=== PATIENT | female | born 1955 | race African-American/Black ===

== ENCOUNTER 2017-01-14 14:31 | Emergency (ER) | payer OTHER ==
[2017-01-14 14:49] VITALS: BP 0/0; PULSE 71; TEMP 99; BMI 32.9
--- NOTE | 2017-01-14 15:18 | PDOC ---
History of Present Illness - General Chief Complaint: Injury Stated Complaint: LACERATION Time Seen by Provider: 01/14/17 14:53 Past History - Past Medical History Allergies/Adverse Reactions: Allergies Allergy/AdvReac Type Severity Reaction Status Date / Time iodine Allergy Verified 01/14/17 14:39 Home Medications: Ambulatory Orders Acetaminophen W/ Codeine #3 [Tylenol # 3 -] 1 tab PO HS #7 tablet MDD 1 Atorvastatin Ca [Lipitor] 10 mg PO HS 01/14/17 Clindamycin [Cleocin -] 300 mg PO TID #21 capsule 01/14/17 Clopidogrel Bisulfate [Plavix -] 75 mg PO DAILY 01/14/17 Gabapentin 400 mg PO ASDIR 01/14/17 Insulin (Novolog) [Novolog Flexpen -] 100 units SQ ASDIR 01/14/17 Cardiac Disorders: Yes (PACEMAKER) COPD: Yes Diabetes: Yes HTN: Yes Hypercholesterolemia: Yes Other medical history: GLAUCOMA - Surgical History Cardiac Surgery: Yes (MITRAL VALVE REPLACEMET W/ STENT) - Immunization History Immunization Up to Date: Yes - Psycho/Social/Smoking Cessation Hx Suicidal Ideation: No Smoking History: Current every day smoker Number of Cigarettes Smoked Daily: 4 Information on smoking cessation initiated: No Hx Alcohol Use: No Drug/Substance Use Hx: No Substance Use Type: None *Physical Exam - Vital Signs Last Vital Signs Temp Pulse Resp BP Pulse Ox 99.0 F 71 16 0/0 100 01/14/17 14:41 01/14/17 14:41 01/14/17 14:41 01/14/17 14:41 01/14/17 14:41 *DC/Admit/Observation/Transfer Diagnosis at time of Disposition: Foot ulcer Qualifiers: Laterality: right Non-pressure ulcer stage: unspecified non-pressure ulcer stage Qualified Code(s): L97.519 - Non-pressure chronic ulcer of other part of right foot with unspecified severity Laceration of toe Qualifiers: Encounter type: initial encounter Toe: great toe Damage to nail status: without damage Foreign body presence: without foreign body Laterality: right Qualified Code(s): S91.111A - Laceration without foreign body of right great toe without damage to nail, initial encounter - Discharge Dispostion Disposition: HOME Condition at time of disposition: Good Admit: No - Referrals Referrals: Lucila Welch MD [Staff Physician] - Toshia Dickinson [Staff Physician] - Modesto Bell MD [Staff Physician] - Alfonso Dillon MD [Staff Physician] - - Patient Instructions Printed Discharge Instructions: DI for Diabetic Foot Ulcer Additional Instructions: You have a wound to the bottom of your foot. Keep the area elevated and keep pressure off the area when possible. Do not walk around the house barefoot. Use muperocin on the area twice a day to help with healing. When possible, keep the area uncovered to let the air get at the wound. When walking, keep the area covered. Try to create a bulky dressing to put over the wound to lessen the pressure to the area. You may take Tylenol with codeine as needed for pain. Do not drive after taking this medication as it may make you sleepy. You were also prescribed clindamycin. Take this medication with food. Take the entire prescription even if you feel better. Follow up with Dr. Ramirez (podiatry) within a week. You were also given referrals for a primary care doctor. Call to see who take your insurance. Return to the ED if you have worsening pain, signs of infection including foul smelling drainage from the area, fevers, chills, lethargy or any changes in your symptoms.
[2017-01-14] MEDS ORDERED: DIPHTH,PERTUSS(ACELL),TET 0.5 ML DISP.SYRIN IM ONE (15:59)
--- NOTE | 2017-01-15 16:18 | PDOC ---
Patient Follow-up (Call Back) - Post ED Follow - Up Chief Complaint: Pain Condition at time of discharge: Good Disposition at time of original discharge: HOME Reason for Call Back: Complaint/Condition F/U - Disposition Additional Instructions/Notes: Contact by patient, states [facility] did not fill her prescriptions for Clindamycin or Tylenol #3 because they are not contracted with her insurance. Verified with [facility] that prescriptions were not filled, then deleted them. Re-sent prescriptions as written by original ordering provider to [facility].
== END 2017-01-14 16:19 | disposition home or self-care (01) ==
LOC: JERFT 14:31
PROC: 3E0234Z Introduction of Serum, Toxoid and Vaccine into Muscle, Percutaneous Approach (ICD-10-PCS; principal; 2017-01-14)
DX: S91.111A Laceration without foreign body of right great toe without damage to nail, initial encounter (principal); L97.519 Non-pressure chronic ulcer of other part of right foot with unspecified severity; X58.XXXA Exposure to other specified factors, initial encounter; Y93.89 Activity, other specified; Y92.89 Other specified places as the place of occurrence of the external cause; Y99.8 Other external cause status; I10 Essential (primary) hypertension; E11.9 Type 2 diabetes mellitus without complications; J44.9 Chronic obstructive pulmonary disease, unspecified; H40.9 Unspecified glaucoma; Z95.2 Presence of prosthetic heart valve; Z95.0 Presence of cardiac pacemaker; F17.210 Nicotine dependence, cigarettes, uncomplicated
CPT/HCPCS: 87070; 87077; 87186; 87205; 90715; 99281-25

== ENCOUNTER 2017-08-17 12:19 | Observation (INO) | payer OTHER ==
[2017-08-17 12:30] VITALS: BMI 34.3
--- NOTE | 2017-08-17 12:43 | PDOC ---
History of Present Illness - General Chief Complaint: Chest Pain Stated Complaint: LIGHTHEADED, LOW BP (PCP SENT) Time Seen by Provider: 08/17/17 12:42 - History of Present Illness Initial Comments: 08/17/17 12:43 Ms. Ray is a 61 yo woman w/ pmh of IDDM, COPD, HTN, HLD, glaucoma, mitral valve replacement, stents, s/p pacemaker who presents per PCP's instruction after she was found to be lightheaded with low blood pressure in office today. Ms. Ray reports a 2 week history of diarrhea she describes as loose stool ( no blood) and that "whatever goes in goes out." She also endorses a 1 week history of cough productive of yellow/green sputum and that for the last 3-4 days she has had midline chest pain and bilateral lower abdominal pain when coughing. She also reports recent foaming of her urine. The patient headache and dizziness. Denies fever, chills, nausea, vomit, and constipation. Denies dysuria, frequency, urgency and hematuria. Allergies: Iodine 08/17/17 13:00 Past History - Past Medical History Allergies/Adverse Reactions: Allergies Allergy/AdvReac Type Severity Reaction Status Date / Time iodine Allergy Verified 08/17/17 12:31 Home Medications: Ambulatory Orders Atorvastatin Ca [Lipitor] 10 mg PO HS 01/14/17 Clopidogrel Bisulfate [Plavix -] 75 mg PO DAILY 01/14/17 Gabapentin 400 mg PO TID 01/14/17 Insulin (Novolog) [Novolog Flexpen -] 0 units SQ ASDIR 01/14/17 Insulin Detemir [Levemir Flextouch] 34 unit SQ HS 08/17/17 Cardiac Disorders: Yes (PACEMAKER) COPD: Yes Diabetes: Yes HTN: Yes Hypercholesterolemia: Yes - Surgical History Cardiac Surgery: Yes (MITRAL VALVE REPLACEMET W/ STENT) - Immunization History Immunization Up to Date: Yes - Suicide/Smoking/Psychosocial Hx Smoking History: Current every day smoker Number of Cigarettes Smoked Daily: 5 Information on smoking cessation initiated: No Hx Alcohol Use: No Drug/Substance Use Hx: No Substance Use Type: None Review of Systems - Review of Systems Comments:: 08/17/17 12:43 GENERAL/CONSTITUTIONAL: No fever or chills. No weakness. HEAD, EYES, EARS, NOSE AND THROAT: No change in vision. No ear pain or discharge. No sore throat. CARDIOVASCULAR: No chest pain or shortness of breath RESPIRATORY: No cough, wheezing, or hemoptysis. GASTROINTESTINAL: No nausea, vomiting, diarrhea or constipation. GENITOURINARY: No dysuria, frequency, or change in urination. MUSCULOSKELETAL: No joint or muscle swelling or pain. No neck or back pain. SKIN: No rash NEUROLOGIC: No headache, vertigo, loss of consciousness, or change in strength/ sensation. ENDOCRINE: No increased thirst. No abnormal weight change HEMATOLOGIC/LYMPHATIC: No anemia, easy bleeding, or history of blood clots. ALLERGIC/IMMUNOLOGIC: No hives or skin allergy. *Physical Exam - Vital Signs Last Vital Signs Temp Pulse Resp BP Pulse Ox 97.9 F 70 16 82/34 96 08/17/17 12:27 08/17/17 12:27 08/17/17 12:27 08/17/17 12:27 08/17/17 12:27 - Physical Exam Comments: 08/17/17 12:43 GENERAL: Awake, alert, and fully oriented, in no acute distress HEAD: No signs of trauma, normocephalic, atraumatic EYES: PERRLA, EOMI, sclera anicteric, conjunctiva clear ENT: Auricles normal inspection, hearing grossly normal, nares patent, oropharynx clear without exudates. Moist mucosa NECK: Normal ROM, supple, no lymphadenopathy, JVD, or masses LUNGS: No distress, speaks full sentences, clear to auscultation bilaterally HEART: Regular rate and rhythm, normal S1 and S2, no murmurs, rubs or gallops, peripheral pulses normal and equal bilaterally. ABDOMEN: Soft, nontender, normoactive bowel sounds. No guarding, no rebound. No masses EXTREMITIES: Normal inspection, Normal range of motion, no edema. No clubbing or cyanosis. NEUROLOGICAL: Cranial nerves II through XII grossly intact. Normal speech, normal gait, no focal sensorimotor deficits SKIN: Warm, Dry, normal turgor, no rashes or lesions noted. ED Treatment Course - LABORATORY CBC & Chemistry Diagram: 08/17/17 13:00 08/17/17 13:00 Medical Decision Making - Medical Decision Making 08/17/17 15:20 Ms. Ray is a 61 yo female w/ pmh as described who presents for evaluation of cough + diarrhea. 08/17/17 15:24 Patient noted to have right basilar opacity on CXR. Ceftriaxone + Azithromycin given for suspected pneumonia. Patient also noted to have MICHAEL as below. 1L NS given for treatment. Discussed with primary and will admit to Dr. Elena. 08/17/17 15:39 Laboratory Results - last 24 hr 08/17/17 08/17/17 08/17/17 13:00 13:00 13:00 WBC 10.5 H RBC 3.72 Hgb 10.9 Hct 31.8 L MCV 85.5 MCH 29.3 MCHC 34.2 RDW 13.8 Plt Count 249 MPV 8.6 Neutrophils % 66.7 Lymphocytes % 22.1 Monocytes % 6.5 Eosinophils % 3.5 Basophils % 1.2 PT with INR 12.60 H INR 1.12 PTT (Actin FS) 30.9 VBG pH 7.35 POC VBG pCO2 41.9 POC VBG pO2 53.7 H Mixed VBG HCO3 22.5 Sodium Potassium Chloride Carbon Dioxide Anion Gap BUN Creatinine Creat Clearance w eGFR Random Glucose Lactic Acid Calcium Total Bilirubin AST ALT Alkaline Phosphatase Troponin I Total Protein Albumin 08/17/17 08/17/17 08/17/17 13:00 13:00 13:00 WBC RBC Hgb Hct MCV MCH MCHC RDW Plt Count MPV Neutrophils % Lymphocytes % Monocytes % Eosinophils % Basophils % PT with INR INR PTT (Actin FS) VBG pH POC VBG pCO2 POC VBG pO2 Mixed VBG HCO3 Sodium 132 L Potassium 4.4 Chloride 98 Carbon Dioxide 22 Anion Gap 12 BUN 49 H Creatinine 2.9 H Creat Clearance w eGFR 16.61 Random Glucose 339 H* Lactic Acid 2.0 Calcium 8.7 Total Bilirubin 0.4 AST 22 ALT 18 Alkaline Phosphatase 583 H Troponin I 0.02 Cancelled Total Protein 7.4 Albumin 3.2 L *DC/Admit/Observation/Transfer Diagnosis at time of Disposition: MICHAEL (acute kidney injury) - Discharge Dispostion Admit: Yes - Referrals Referrals: Channing Elena MD [Primary Care Provider] - - Patient Instructions - Post Discharge Activity
[2017-08-17 13:12] LABS: BASO % 1.2 % (0-2.0); EOS % 3.5 % (0-4.5); HEMATOCRIT 31.8 % (32.4-45.2); HEMOGLOBIN 10.9 GM/dL (10.7-15.3); LYMPH % 22.1 % (8-40); MCH 29.3 pg (25.7-33.7); MCHC 34.2 g/dl (32.0-36.0); MEAN CELL VOLUME 85.5 fl (80-96); MEAN PLT VOLUME 8.6 fl (7.5-11.1); MONO % 6.5 % (3.8-10.2); NEUT % 66.7 % (42.8-82.8); PLATELET COUNT 249 K/MM3 (134-434); RBC 3.72 M/mm3 (3.60-5.2); RDW 13.8 % (11.6-15.6); WHITE BLOOD COUNT 10.5 K/mm3 (4.0-10.0)
[2017-08-17 13:19] LABS: VENOUS PC02 41.9 mmHg (38-52); VENOUS PH 7.35 (7.32-7.42); VENOUS PO2 53.7 mmHg (28-48)
[2017-08-17] MEDS ORDERED: SODIUM CHLORIDE 1,000 ML IV STA ×2 (13:28→16:24)
[2017-08-17 13:31] LABS: ALBUMIN 3.2 g/dl (3.4-5.0); ANION GAP 12 (8-16); BILIRUBIN,TOTAL 0.4 mg/dL (0.2-1.0); BLOOD UREA NITROGEN 49 mg/dL (7-18); CALCIUM 8.7 mg/dL (8.5-10.1); CHLORIDE 98 mmol/L (98-107); CO2 22 mmol/L (21-32); CREATININE 2.9 mg/dL (0.55-1.02); SGPT/ALT 18 U/L (12-78); SODIUM 132 mmol/L (136-145); TOT PROT 7.4 g/dl (6.4-8.2)
[2017-08-17 13:33] LABS: ALK PHOS 583 U/L (45-117)
[2017-08-17 13:38] LABS: INR 1.12 (0.82-1.09); PROTHROMBIN TIME (PATIENT) 12.6 SEC (9.98-11.88)
[2017-08-17 13:40] LABS: GLUCOSE,RANDOM 339 mg/dL (74-106); POTASSIUM 4.4 mmol/L (3.5-5.1); SGOT/AST 22 U/L (15-37)
[2017-08-17 13:41] LABS: ACTIVATED PTT 30.9 SECONDS (26.9-34.4)
--- NOTE | 2017-08-17 15:05 | PDOC ---
Attending Attestation - Resident Resident Name: GlenradhaclauAlbinoHaile - ED Attending Attestation I have performed the following: I have examined & evaluated the patient, The case was reviewed & discussed with the resident, I agree w/resident's findings & plan - HPI HPI: 08/17/17 14:59 61-year-old female presents with several complaints from Dr. Elena office. Pt recently treated for bronchitis/COPD exacerbation about 2 months ago. P/w daily painless nonbloody diarrhea for weeks, about 1 week of cough productive of yellow/green sputum, and now chest discomfort. found to be hypotensive in Dr. Elena' office so referred to ED. - Physicial Exam PE: 08/17/17 15:01 VS wnl, BP 80s systolic well appearing and comfortable lying in stretcher. not toxic appearing despite her BP dry mucosa s1s2 rrr. lungs ctab, ? expiratory rhonchi in the R mid/upper lobe region abd soft/nt/nd bs nl no cvat - Medical Decision Making 08/17/17 15:02 Patient seen and evaluated with the resident. I agree with the overall evaluation, assessment, and management with the following summary of visit: 61-year-old female with several complaints including diarrhea, cough, and now chest pain. Diarrhea could be viral enteritis, lower suspicion for colitis or diverticulitis given no pain or tenderness. Cough could be bronchitis exacerbation, rule out pneumonia. Chest pain could be 2/2 pna/bronchitis v. ACS. labs, ua cxr, ekg ivf resuscitation likely admission for Dr. Elena 08/17/17 15:09 wbc 10, Cr 2.9 (unclear baseline, will d/w Ulices), Trop and K wnl. CXR with basilar infiltrate, will treat for CAP. proceed with admission
[2017-08-17] MEDS ORDERED: CEFTRIAXONE 1,000 MG in DEXTROSE 5%-WATER - 50 ML IVPB ONE (15:17)
[2017-08-17] MEDS ORDERED: AZITHROMYCIN IVPB 500 MG in DEXTROSE 5%-WATER - 250 ML IVPB ONE (15:17)
[2017-08-17] MEDS ORDERED: AZITHROMYCIN IVPB 250 ML IVPB ONE (15:27)
[2017-08-17] MEDS ORDERED: CEFTRIAXONE 1 GM/50 ML BAG ONE (15:28)
[2017-08-17] MEDS ORDERED: ALBUTEROL SO4 2.5/IPRATROPIUM 0.5 INH SOL 3 ML VIAL.NEB. NEB PRN (16:27)
[2017-08-17] MEDS ORDERED: SODIUM CHLORIDE 1,000 ML IV SCH (16:30)
[2017-08-17 16:37] LABS: URINE APPEARANCE SLCLOUDY; URINE BILIRUBIN NEGATIVE (<2.0 mg/dL); URINE BLOOD 1+ (NEGATIVE); URINE COLOR LTYELLOW; URINE GLUCOSE (UA) 3+ (NEGATIVE); URINE KETONE NEGATIVE (NEGATIVE); URINE LEUK ESTERASE TRACE (NEGATIVE); URINE NITRITE NEGATIVE (NEGATIVE); URINE UROBILINOGEN NEGATIVE mg/dL (0.2-1.0)
[2017-08-17 16:38] LABS: URINE PROTEIN 2+ (NEGATIVE)
[2017-08-17 16:40] LABS: EPI CELLS RARE /HPF (FEW); URINE BACTERIA RARE /hpf (NONE SEEN); URINE HYALINE CAST 6 /lpf
--- NOTE | 2017-08-17 16:41 | EKG ---
Test Reason : Blood Pressure : / mmHG Vent. Rate : 068 BPM Atrial Rate : 068 BPM P-R Int : 156 ms QRS Dur : 098 ms QT Int : 508 ms P-R-T Axes : 028 016 088 degrees QTc Int : 540 ms NORMAL SINUS RHYTHM PROLONGED QT ABNORMAL ECG NO PREVIOUS ECGS AVAILABLE Confirmed by MD Palma, Eric ([id number]) on 08/17/2017 4:41:36 PM Referred By: Confirmed By:Eric Waldrop MD
[2017-08-17] MEDS: INSULIN SLIDING SCALE (NOVOLOG) 1 VIAL SQ SCH (17:36)
[2017-08-17 20:13] LABS: MAGNESIUM 2.3 mg/dL (1.8-2.4)
[2017-08-17] MEDS: INSULIN DETEMIR 100 UNITS/ML MDV SQ SCH (22:25)
[2017-08-17] MEDS: HEPARIN NA (PORCINE) 5,000 UNITS/ML 1ML VIAL SQ SCH (22:25)
[2017-08-17] MEDS: ATORVASTATIN CA 10 MG TABLET (FP) PO SCH (22:25)
[2017-08-17] MEDS: GABAPENTIN 400 MG CAPSULE (FP) PO SCH (22:26)
[2017-08-17] MEDS: CARVEDILOL 6.25 MG TABLET (FP) PO SCH (22:26)
[2017-08-17] MEDS: MELATONIN 5 MG TABLETS PO PRN (22:58)
[2017-08-18] MEDS: HEPARIN NA (PORCINE) 5,000 UNITS/ML 1ML VIAL SQ SCH ×3 (06:32→21:52)
[2017-08-18] MEDS: GABAPENTIN 400 MG CAPSULE (FP) PO SCH ×3 (06:32→21:52)
[2017-08-18] MEDS: INSULIN SLIDING SCALE (NOVOLOG) 1 VIAL SQ SCH ×3 (06:33→17:47)
[2017-08-18] MEDS ORDERED: INSULIN DETEMIR 100 UNITS/ML MDV SQ ONE (06:54)
[2017-08-18] MEDS ORDERED: INSULIN (NOVOLOG) ASPART 100 UNITS/ML 10ML VIAL ONE ×2 (06:54→18:26)
[2017-08-18 08:00] LABS: BASO % 0.8 % (0-2.0); EOS % 4.1 % (0-4.5); HEMATOCRIT 30.7 % (32.4-45.2); HEMOGLOBIN 10.4 GM/dL (10.7-15.3); LYMPH % 27.6 % (8-40); MCH 29.2 pg (25.7-33.7); MCHC 33.8 g/dl (32.0-36.0); MEAN CELL VOLUME 86.4 fl (80-96); MONO % 7.3 % (3.8-10.2); NEUT % 60.2 % (42.8-82.8); PLATELET COUNT 227 K/MM3 (134-434); RBC 3.56 M/mm3 (3.60-5.2); WHITE BLOOD COUNT 8.2 K/mm3 (4.0-10.0)
[2017-08-18 08:30] LABS: ANION GAP 6 (8-16); BLOOD UREA NITROGEN 43 mg/dL (7-18); CALCIUM 8.2 mg/dL (8.5-10.1); CHLORIDE 113 mmol/L (98-107); CO2 24 mmol/L (21-32); GLUCOSE,RANDOM 98 mg/dL (74-106); POTASSIUM 3.6 mmol/L (3.5-5.1); SODIUM 143 mmol/L (136-145)
[2017-08-18 08:40] LABS: CREATININE 1.9 mg/dL (0.55-1.02)
--- NOTE | 2017-08-18 09:12 | HP ---
Admitting History and Physical - Primary Care Physician PCP: Channing Elena - Admission Chief Complaint: Feeling weak and Dizzy History of Present Illness: 61 yrs old F multiple Co-morbidties H/O HTN, Dyslipedemia, CAD s/p Stent , MVR, Pacemaker, Ischemic Cardiomyopathy, systolic HF, CKD stgae 3, COPD actoive smoker, Chronic anemia, recently discharged from [facility] on 07/05 2017 after treated for CHF and COPD exacerbation with MICHAEL on CKD, patient was Dc to a rehab, yesterday present to ED for F/U c/o leg cramps feeling dry and Dizzy, patient also endorsed loose water diarrhea after discharged now improved 2 days ago, no c/o SOB, cough, fever, dysuria, abd pain , in the clinic BP recorded 83/50 so transferred to ED for evaluation, lab shows elevated BUN/Creat with Hypotention admitted for further evaluation and management of MICHAEL. Patient also c/o cough and green color expectoration. History Source: Patient - Past Medical History Cardiovascular: Yes: CAD, CHF, Pulmonary Hypertension Pulmonary: Yes: COPD Gastrointestinal: Yes: GERD Heme/Onc: Yes: Anemia Musculoskeletal: Yes: Chronic low back pain Endocrine: Yes: Diabetes Insipidus - Smoking History Smoking history: Current every day smoker Aproximately how many cigarettes per day: 5 - Alcohol/Substance Use Hx Alcohol Use: No - Social History Usual Living Arrangement: Yes: With Child ADL: Family Assistance <Sylvie Mittal - Last Filed: 08/18/17 20:42> Home Medications <Sylvie Mittal - Last Filed: 08/18/17 20:42> <Rody Blank - Last Filed: 08/21/17 15:00> - Allergies Allergies/Adverse Reactions: Allergies Allergy/AdvReac Type Severity Reaction Status Date / Time iodine Allergy Verified 08/21/17 11:43 - Home Medications Home Medications: Ambulatory Orders Atorvastatin Ca [Lipitor] 10 mg PO HS 01/14/17 Clopidogrel Bisulfate [Plavix -] 75 mg PO DAILY 01/14/17 Gabapentin 400 mg PO TID 01/14/17 Insulin (Novolog) [Novolog Flexpen -] 0 units SQ ASDIR 01/14/17 Insulin Detemir [Levemir Flextouch] 34 unit SQ HS 08/17/17 Albuterol Sulfate Inhaler - [Ventolin HFA Inhaler -] 2 puff IH Q6H PRN 30 Days # 1 inhaler MDD 4 times 08/19/17 Aspirin [ASA -] 81 mg PO DAILY tab.chew 08/19/17 Azithromycin [Zithromax 250mg Tablets -] 250 mg PO DAILY 3 Days #3 tablet Carvedilol [Coreg -] 6.25 mg PO BID tablet 08/19/17 Furosemide [Lasix -] 20 mg PO DAILY #14 tablet 08/19/17 Isosorbide Mononitrate [Imdur -] 60 mg PO DAILY tab.sr.24h 08/19/17 Losartan Potassium [Cozaar -] 50 mg PO DAILY tablet 08/19/17 Melatonin 5 mg PO HS PRN tab 08/19/17 Ranitidine [Zantac -] 150 mg PO DAILY #30 tablet 08/19/17 Salmeterol/Fluticasone [Advair 100Mcg/50Mcg -] 1 puff IH BID #1 inhaler Family Disease History - Family Disease History Family History: Unremarkable (not contributary) <Sylvie Mittal - Last Filed: 08/18/17 20:42> Review of Systems - Review of Systems Constitutional: reports: Lethargy, Malaise. denies: Chills, Diaphoresis, Fever Eyes: denies: Blurred Vision, Double Vision HENT: denies: Difficult Swallowing, Ear Discharge, Ear Pain, Gingival Bleeding Neck: denies: Decreased ROM, Lumps, Pain on Movement Cardiovascular: reports: Chest Pain, Edema, Shortness of Breath Respiratory: reports: Cough, Exercise Intolerance Gastrointestinal: reports: Diarrhea. denies: Abdominal Pain, Bloating Genitourinary: denies: Burning, Discharge Musculoskeletal: reports: Back Pain Neurological: reports: Dizziness. denies: Change in LOC, Confusion Endocrine: reports: Excessive Sweating Hematology/Lymphatic: reports: No Symptoms Psychiatric: reports: No Symptoms <Sylvie Mittal - Last Filed: 08/18/17 20:42> Physical Examination Vital Signs: Vital Signs Temperature 98.1 F 08/18/17 06:00 Pulse Rate 63 08/18/17 06:00 Respiratory Rate 20 08/18/17 06:00 Blood Pressure 144/73 08/18/17 06:00 O2 Sat by Pulse Oximetry (%) 98 08/18/17 01:00 Elderly F feels improved since yesterday HEENT: Mm moist, + anemia, PERRLA EOMI NECK:+ JVd No Bruit CHEST: No Congestion CTA B/L CVS: S1S2 R SM in [place] ABD{ Obese non tender Bs + EXT: Jhonathan afeet +, no calf tenderness Pulses feeble in [employer]: AOx3 non focal Labs: CBC, BMP 08/18/17 07:52 08/18/17 07:52 Laboratory Results - last 24 hr 08/17/17 08/17/17 08/17/17 13:00 13:00 13:00 WBC 10.5 H RBC 3.72 Hgb 10.9 Hct 31.8 L MCV 85.5 MCH 29.3 MCHC 34.2 RDW 13.8 Plt Count 249 MPV 8.6 Neutrophils % 66.7 Lymphocytes % 22.1 Monocytes % 6.5 Eosinophils % 3.5 Basophils % 1.2 PT with INR 12.60 H INR 1.12 PTT (Actin FS) 30.9 VBG pH 7.35 POC VBG pCO2 41.9 POC VBG pO2 53.7 H Mixed VBG HCO3 22.5 Sodium Potassium Chloride Carbon Dioxide Anion Gap BUN Creatinine Creat Clearance w eGFR POC Glucometer Random Glucose Hemoglobin A1c % Lactic Acid Calcium Magnesium Total Bilirubin AST ALT Alkaline Phosphatase Troponin I Total Protein Albumin Triglycerides Cholesterol Total LDL Cholesterol HDL Cholesterol TSH Urine Color Urine Appearance Urine pH Ur Specific [place] Urine Protein Urine Glucose (UA) Urine Ketones Urine Blood Urine Nitrite Urine Bilirubin Urine Urobilinogen Ur Leukocyte Esterase Urine WBC (Auto) Urine RBC (Auto) Ur Epithelial Cells Urine Bacteria Hyaline Casts 08/17/17 08/17/17 08/17/17 13:00 13:00 13:00 WBC RBC Hgb Hct MCV MCH MCHC RDW Plt Count MPV Neutrophils % Lymphocytes % Monocytes % Eosinophils % Basophils % PT with INR INR PTT (Actin FS) VBG pH POC VBG pCO2 POC VBG pO2 Mixed VBG HCO3 Sodium 132 L Potassium 4.4 Chloride 98 Carbon Dioxide 22 Anion Gap 12 BUN 49 H Creatinine 2.9 H Creat Clearance w eGFR 16.61 POC Glucometer Random Glucose 339 H* Hemoglobin A1c % Lactic Acid 2.0 Calcium 8.7 Magnesium Total Bilirubin 0.4 AST 22 ALT 18 Alkaline Phosphatase 583 H Troponin I 0.02 Cancelled Total Protein 7.4 Albumin 3.2 L Triglycerides Cholesterol Total LDL Cholesterol HDL Cholesterol TSH Urine Color Urine Appearance Urine pH Ur Specific [place] Urine Protein Urine Glucose (UA) Urine Ketones Urine Blood Urine Nitrite Urine Bilirubin Urine Urobilinogen Ur Leukocyte Esterase Urine WBC (Auto) Urine RBC (Auto) Ur Epithelial Cells Urine Bacteria Hyaline Casts 08/17/17 08/17/17 08/17/17 16:12 17:34 18:50 WBC RBC Hgb Hct MCV MCH MCHC RDW Plt Count MPV Neutrophils % Lymphocytes % Monocytes % Eosinophils % Basophils % PT with INR INR PTT (Actin FS) VBG pH POC VBG pCO2 POC VBG pO2 Mixed VBG HCO3 Sodium Potassium Chloride Carbon Dioxide Anion Gap BUN Creatinine Creat Clearance w eGFR POC Glucometer [id number] Random Glucose Hemoglobin A1c % Lactic Acid Calcium Magnesium 2.3 Total Bilirubin AST ALT Alkaline Phosphatase Troponin I Total Protein Albumin Triglycerides 108 Cholesterol 116 Total LDL Cholesterol 48 HDL Cholesterol 55 TSH Urine Color Ltyellow Urine Appearance Slcloudy Urine pH 5.0 Ur Specific [place] 1.007 Urine Protein 2+ H Urine Glucose (UA) 3+ H Urine Ketones Negative Urine Blood 1+ H Urine Nitrite Negative Urine Bilirubin Negative Urine Urobilinogen Negative Ur Leukocyte Esterase Trace Urine WBC (Auto) 2 Urine RBC (Auto) 1 Ur Epithelial Cells Rare Urine Bacteria Rare Hyaline Casts 6 08/17/17 08/18/17 08/18/17 22:20 06:31 07:52 WBC 8.2 RBC 3.56 L Hgb 10.4 L Hct 30.7 L MCV 86.4 MCH 29.2 MCHC 33.8 RDW 14.0 Plt Count 227 MPV 8.0 Neutrophils % 60.2 Lymphocytes % 27.6 D Monocytes % 7.3 Eosinophils % 4.1 Basophils % 0.8 PT with INR INR PTT (Actin FS) VBG pH POC VBG pCO2 POC VBG pO2 Mixed VBG HCO3 Sodium Potassium Chloride Carbon Dioxide Anion Gap BUN Creatinine Creat Clearance w eGFR POC Glucometer 379 149 Random Glucose Hemoglobin A1c % Lactic Acid Calcium Magnesium Total Bilirubin AST ALT Alkaline Phosphatase Troponin I Total Protein Albumin Triglycerides Cholesterol Total LDL Cholesterol HDL Cholesterol TSH Urine Color Urine Appearance Urine pH Ur Specific [place] Urine Protein Urine Glucose (UA) Urine Ketones Urine Blood Urine Nitrite Urine Bilirubin Urine Urobilinogen Ur Leukocyte Esterase Urine WBC (Auto) Urine RBC (Auto) Ur Epithelial Cells Urine Bacteria Hyaline Casts 04/18/18 04/18/18 07:52 07:52 WBC RBC Hgb Hct MCV MCH MCHC RDW Plt Count MPV Neutrophils % Lymphocytes % Monocytes % Eosinophils % Basophils % PT with INR INR PTT (Actin FS) VBG pH POC VBG pCO2 POC VBG pO2 Mixed VBG HCO3 Sodium 143 Potassium 3.6 Chloride 113 H Carbon Dioxide 24 Anion Gap 6 L BUN 43 H Creatinine 1.9 H Creat Clearance w eGFR POC Glucometer Random Glucose 98 Hemoglobin A1c % 13.7 H Lactic Acid Calcium 8.2 L Magnesium Total Bilirubin AST ALT Alkaline Phosphatase Troponin I Total Protein Albumin Triglycerides Cholesterol Total LDL Cholesterol HDL Cholesterol TSH 0.38 Urine Color Urine Appearance Urine pH Ur Specific [place] Urine Protein Urine Glucose (UA) Urine Ketones Urine Blood Urine Nitrite Urine Bilirubin Urine Urobilinogen Ur Leukocyte Esterase Urine WBC (Auto) Urine RBC (Auto) Ur Epithelial Cells Urine Bacteria Hyaline Casts <Sylvie Mittal - Last Filed: 08/18/17 20:42> Vital Signs: Vital Signs Temperature 98.3 F 08/19/17 14:37 Pulse Rate 70 08/19/17 14:37 Respiratory Rate 22 08/19/17 14:37 Blood Pressure 151/89 08/19/17 14:37 O2 Sat by Pulse Oximetry (%) 93 L 08/19/17 09:00 Labs: CBC, BMP 08/19/17 06:30 <Rody Blank - Last Filed: 08/21/17 15:00> Imaging - Results Chest X-ray: Report Reviewed (? Pleural effusion) EKG: Report Reviewed (HR [address] changes) <Sylvie Mittal - Last Filed: 08/18/17 20:42> Problem List - Problems (1) MICHAEL (acute kidney injury) Assessment/Plan: Present with worsening renal function from base line BUN 26 Creat 1.47 on 2017, improving with hudration, most likely due to over diuresis and volume loss due to Diarrhea , IV Hydration recived 2 Ltr Cont NS 50 CC/HR F/U BMP Code(s): N17.9 - ACUTE KIDNEY FAILURE, UNSPECIFIED (2) Dehydration Assessment/Plan: IV hydration F/U BMP in am Code(s): E86.0 - DEHYDRATION (3) Hypotension Assessment/Plan: Due to medication and dehydration will introduce BP/Cardiac meds gradually add Lassic and aldactone once Euvolumic. Code(s): I95.9 - HYPOTENSION, UNSPECIFIED (4) CAD (coronary artery disease) Assessment/Plan: S/P 4 stent at [facility] in 2014 cont ASa, Plavix and reduced dose of B Blockers coreg 6.25 mg BID -ve CE F/U ECHO Code(s): I25.10 - ATHSCL HEART DISEASE OF [place] CORONARY ARTERY W/O ANG PCTRS (5) Systolic HF (heart failure) Assessment/Plan: Due Ischemic ardiomyopathy will F/U ECHo Diuretics on Hold at present Euvolumic add Diuretics with nodified dose on discharge, Code(s): I50.20 - UNSPECIFIED SYSTOLIC (CONGESTIVE) HEART FAILURE (6) ACC/AHA stage C congestive heart failure due to ischemic cardiomyopathy Assessment/Plan: S/P SC and stent LV functionsa re improving on pacemaker Code(s): I50.9 - HEART FAILURE, UNSPECIFIED; I25.5 - ISCHEMIC CARDIOMYOPATHY (7) S/P MVR (mitral valve repair) Assessment/Plan: Lolly SC MR s/p MVR no active issue F/U ECHO. Code(s): Z98.890 - OTHER SPECIFIED POSTPROCEDURAL STATES (8) T2DM (type 2 diabetes mellitus) Assessment/Plan: Mayur Insulin poorly controlled F/Uu accu checks Hba!C cont Lantus with correction dose Novalog Code(s): E11.9 - TYPE 2 DIABETES MELLITUS WITHOUT COMPLICATIONS (9) Hypercholesteremia Assessment/Plan: On Statin Code(s): E78.00 - PURE HYPERCHOLESTEROLEMIA, UNSPECIFIED (10) Diarrhea Assessment/Plan: Chronic diarrhea f/u stool w/u Code(s): R19.7 - DIARRHEA, UNSPECIFIED (11) CKD stage 3 due to type 2 diabetes mellitus Assessment/Plan: Cont Losartan for renal protection once renal functions are back to base line. Code(s): E11.22 - TYPE 2 DIABETES MELLITUS W DIABETIC CHRONIC KIDNEY DISEASE; N18.3 - CHRONIC KIDNEY DISEASE, STAGE 3 (MODERATE) <Sylvie Mittal - Last Filed: 08/18/17 20:42>
[2017-08-18] MEDS: ASPIRIN 81 MG CHEWABLE TABLETS PO SCH (09:45)
[2017-08-18] MEDS: ISOSORBIDE MONONITRATE 60 MG TAB.SR.24H (FP) PO SCH (09:46)
[2017-08-18] MEDS: CLOPIDOGREL BISULFATE 75 MG TABLET (FP) PO SCH (09:46)
[2017-08-18] MEDS: CARVEDILOL 6.25 MG TABLET (FP) PO SCH ×2 (09:46→21:52)
--- NOTE | 2017-08-18 19:26 | CONS ---
DATE OF CONSULTATION: DATE OF DICTATION: 08/18/2017 REQUESTING PHYSICIAN: Sylvie Mittal M.D. CARDIOLOGY CONSULTATION CHIEF COMPLAINT: 1. Lightheadedness. 2. Low blood pressure. 3. History of recent chills. 4. History of cough yellowish greenish expectoration for the last few days. HISTORY OF PRESENT ILLNESS: The patient is a 61-year-old -Citizen Of [place] female with history of diabetes mellitus, hypertension, hypercholesterolemia, history of myocardial infarction status post PCI stenting (4 stents), history of mitral valve repair, gait disturbance. Patient states that for the past few days she was experiencing postural lightheadedness. This was preceded by chills followed by cough and expectoration which was yellowish and greenish in color. Patient also has been complaining of extreme fatigue and has been experiencing increasing dyspnea, initially walking less than a block. She progressively became more pronounced and prior to admission had dyspnea of a few feet. She also had experienced paroxysmal nocturnal dyspnea. There is no history of orthopnea. She does give history of exertional chest discomfort walking less than 1 block relieved by rest, has history of exertional claudication in one report of lower extremities. Patient states that she has been noncompliant. She periodically has left frontal headache. Several month history of diarrhea with 2-3 loose bowel movements. There is no history of bleeding, melena, or hematochezia. No history of palpitations. PAST HISTORY: 1. As mentioned in the history of present illness. 2. History of left intraocular bleed requiring surgery. 3. History of peripheral artery disease. 4. History of syncope requiring a pacemaker. 5. Gait disturbance. SURGICAL HISTORY: 1. Status post cholecystectomy. 2. Status post surgery involving the left eye, type uncertain. 3. Multiple coronary artery stenting. 4. Status post peripheral angioplasty on the right lower extremity. 5. Status post permanent pacemaker. 6. History of open heart surgery for mitral valve repair. SOCIAL HISTORY: She is single, was never , has 2 sons and 2 daughters. She started smoking at the age of 18, used to smoke less than 1 pack of cigarettes per day but continues to smoke between 5 and 6 cigarettes. No history of alcohol or drug use. Drinks 3 cups of tea. FAMILY HISTORY: Father at the age of 57 related to cerebrovascular accident. He was hypertensive, diabetic, and alcoholic. Mother at age 28 due to complications of ovarian carcinoma. Has 2 sisters and 1 son. The older sister at age 53 of a myocardial infarction. The brother at age 50 of an IA and he was also diabetic. Remaining sister is a diabetic and hypertensive. ALLERGIES: IV CONTRAST. MEDICATION: As noted in emergency room record, are as follows. 1. Atorvastatin 10 mg p.o. daily. 2. Plavix 75 mg p.o. daily. 3. Gabapentin 400 mg p.o. t.i.d. 4. Novolog insulin according to sliding scale. 5. Levemir insulin 34 units subcutaneous at bedtime. In hospital medications: 1. Heparin 5000 units subcutaneous t.i.d. a.c. 2. Gabapentin 400 mg b.i.d. 3. DuoNeb 1 ampule via nebulizer q.6 h. p.r.n. 4. Carvedilol 6.25 mg p.o. b.i.d. 5. Atorvastatin 10 mg p.o. daily at bedtime. 6. Novolog insulin according to sliding scale t.i.d. a.c. 7. Levemir insulin 34 units subcutaneous at bedtime. 8. Isosorbide mononitrate 60 mg p.o. daily. 9. Aspirin 81 mg p.o. daily. 10. Clopidogrel 75 mg p.o. daily. 11. Melatonin 5 mg p.o. daily. REVIEW OF SYSTEMS: Constitutional: Recent history of chills and shivering. No known history of fever. History of unintentional weight loss of approximately 10 pounds. HEENT: History of left frontal headaches. No history of diplopia or blurred vision, see history of present illness. No history of recent epistaxis, no history of hoarseness. No history of tinnitus or deafness. Cardiovascular: See history of present illness. No history of rheumatic fever. Respiratory: See history of present illness, no history of hemoptysis or tuberculosis. Gastrointestinal: Recent history of nausea on waking up in the morning during current hospitalization. No history of vomiting, melena or hematemesis. History of diarrhea for the past several months, 2-3 bowel movements a day. No history of abdominal pain or discomfort reported. No history of hematochezia. Central nervous system: History of peripheral neuropathy, history of gait disturbance requiring the use of a walker, no history of focal weakness, no history of seizures, history of syncope that required pacemaker probably for advanced AV block. Endocrine: See history of present illness, no history of intolerance to cold or warm weather. Musculoskeletal: History of claudications involving both lower extremities, and history of paresthesias. No history of arthralgia. Hematological: No history of bleeding, ecchymosis, or anemia reported. Genitourinary: No history of dysuria, frequency, history of excessive frothing on urination, no history of hematuria or urgency. Miscellaneous: No history of skin disorder of lymphadenopathy. PHYSICAL EXAMINATION: General: A 61-year-old -Citizen Of [place] female who looks older than her age, was in no acute distress, no pallor, cyanosis, clubbing, or jaundice. Vital signs: On admission her blood pressure was 149/77 mmHg. Pulse is 72 beats per minute and regular. Respirations were 20 per minute. Temperature is 97.9 degrees Fahrenheit. Oxygen saturation was 98% on room air. Neck: Supple. No jugulovenous distention, hepatojugular reflex was negative, carotids were 1+ bilaterally, no bruits were heard, and no thyromegaly was appreciated. Heart: PMI was in the 5th intercostal space, no heaves or thrills. Heart sounds were distant. Grade 1/6 decrescendo systolic murmur was heard at the apex in the left lateral position on held expiration. No diastolic murmur or gallops were appreciated. Lungs: Clear on auscultation. Chest: Normal AP diameter. Expansion was symmetrical. There was a midline sternotomy scar with keloid formation. There was also scar over the left upper anterior chest with keloid formation for a pacemaker battery pack. Abdomen: Obese, soft, nontender. No hepatosplenomegaly or palpable masses were felt. No bruits were heard, and bowel sounds were present. Extremities: No calf tenderness or dependent edema, right femoral pulse was 1+, left could not be palpated. Left dorsalis pedis and posterior tibial pulses were not palpable. Right dorsalis pedis was 1+, posterior tibial pulse was not palpable. Both popliteal pulses could not be palpated. ECG dated August 17, sinus rhythm with intraatrial conduction abnormality. There were baseline artifacts recorded. ST and T wave abnormalities were noted in I and AVL. QTC interval was prolonged, and no previous ECG was available for comparison. Echocardiogram was reported to be as follows: 1. Clinical correlation is recommended. Left ventricle is grossly normal size. 2. Left ventricular systolic function is moderately reduced. 3. There is mild global hypokinesia of the left ventricle. 4. There is moderate tricuspid regurgitation. 5. Right ventricular systolic pressure is elevated at 40 to 50 mmHg. 6. Cannot exclude significant mitral stenosis. 7. Mitral valve stenosis calculation not performed. 8. Clinical correlation is recommended. 9. Study was technically difficult with many images being suboptimal in quality. X-ray chest dated August 01, 2017. Impression: 1. Equivocal small right basilar opacity as discussed above which could represent a small infiltrate. Consider CT evaluation versus close followup radiography. 2. Moderate enlargement of cardiac silhouette. 3. Status post cardiac surgery. Transvenous cardiac pacemaker in place. LABORATORY DATA: CBC August 17, 2017: 1. WBC count 10,500. 2. Hemoglobin 10.9 g. 3. Platelet count 249,000 with normal differential. Followup CBC, August 18, 2017: 1. WBC count 8200. 2. Hemoglobin 10.4 g. 3. Platelet count 227,000. Chemistry, August 17, 2017: sodium 132, potassium 4.4, chloride 98, CO2 of 22 mmol/L. BUN 49, creatinine 2.9, random glucose 339. Alkaline phosphatase was 583. Troponin 0.02. Total protein 7.4 g/dL. Albumin 3.2 g/dL. Total cholesterol was 116, triglycerides 108, HDL cholesterol 55, LDL cholesterol 48 mg/dL. August 18, 2017, chemistry: sodium 143, potassium 3.6, chloride 113, CO2 of 24 mmol/L, BUN 43, creatinine 1.9 mg/dL. Blood sugar was 149 at 6:31 a.m. TSH was 0.38. Hemoglobin A1c was 13.7%. IMPRESSION: 1. Coronary artery disease, status post myocardial infarction, status post percutaneous coronary intervention/stenting, recurrence of chest pain consistent with angina pectoris. 2. Exertional dyspnea associated with paroxysmal nocturnal dyspnea compatible with left ventricular failure. 3. Left ventricular systolic dysfunction as mentioned on echocardiogram. 4. Recent chills, cough with expectoration is compatible with acute bronchitis, pneumonia needs to be excluded. 5. History of chronic obstructive pulmonary disease as documented in the chart. 6. Insulin dependent diabetes mellitus, poorly controlled. 7. Diabetic neuropathy. 8. Postural lightheadedness, etiology to be determined. a. Secondary to dehydration. b. Postural hypotension needs to be excluded. 9. Chronic kidney disease. 10. History of hypertension. Hypertensive cardiovascular disease. 11. Status post permanent pacemaker for probable advanced arteriovenous block. 12. Peripheral artery disease status post peripheral angioplasty. 13. Exertional claudications on minimal exertion secondary to number . 14. Open heart surgery for mitral valve repair. 15. Tobacco abuse. 16. Chronic kidney disease. 17. Status post bleed involving the left eye. 18. Poor compliance. RECOMMENDATION: 1. BNP. 2. Check blood pressure supine and standing. 3. Pacemaker interrogation. 4. Cessation of smoking of paramount importance. 5. Follow up x-ray chest. 6. Daily weight. 7. Peripheral arterial Dopplers. 8. Evaluation of anemia which is probably related to chronic kidney disease. 9. Prognosis guarded. Thank you for your referral. CARLOS CASTILLO M.D. [id number]
[2017-08-18] MEDS ORDERED: cefTRIAXone SODIUM 1 GM VIAL ONE (20:54)
[2017-08-18] MEDS ORDERED: DEXTROSE 5%-WATER - 50 ML IVPB ONE (20:56)
[2017-08-18] MEDS: AZITHROMYCIN 250 MG TABLET PO SCH (21:51)
[2017-08-18] MEDS: MELATONIN 5 MG TABLETS PO PRN (21:51)
[2017-08-18] MEDS: CEFTRIAXONE 1 GM in DEXTROSE 5%-WATER - 50 ML IVPB SCH (21:51)
[2017-08-18] MEDS: ATORVASTATIN CA 10 MG TABLET (FP) PO SCH (21:52)
[2017-08-18] MEDS: INSULIN DETEMIR 100 UNITS/ML MDV SQ SCH (22:21)
[2017-08-19] MEDS: INSULIN SLIDING SCALE (NOVOLOG) 1 VIAL SQ SCH ×3 (06:19→17:09)
[2017-08-19] MEDS: GABAPENTIN 400 MG CAPSULE (FP) PO SCH ×2 (06:19→13:10)
[2017-08-19] MEDS: HEPARIN NA (PORCINE) 5,000 UNITS/ML 1ML VIAL SQ SCH ×2 (06:19→13:10)
[2017-08-19 08:02] LABS: BASO % 0.9 % (0-2.0); EOS % 4.7 % (0-4.5); HEMATOCRIT 29.4 % (32.4-45.2); HEMOGLOBIN 9.9 GM/dL (10.7-15.3); LYMPH % 26.2 % (8-40); MCH 29.1 pg (25.7-33.7); MCHC 33.8 g/dl (32.0-36.0); MEAN CELL VOLUME 86.1 fl (80-96); MEAN PLT VOLUME 8.4 fl (7.5-11.1); MONO % 8.8 % (3.8-10.2); NEUT % 59.4 % (42.8-82.8); PLATELET COUNT 205 K/MM3 (134-434); RBC 3.41 M/mm3 (3.60-5.2); RDW 14.4 % (11.6-15.6); WHITE BLOOD COUNT 7.2 K/mm3 (4.0-10.0)
[2017-08-19 09:05] LABS: ANION GAP 7 (8-16); BLOOD UREA NITROGEN 35 mg/dL (7-18); CALCIUM 8.5 mg/dL (8.5-10.1); CHLORIDE 109 mmol/L (98-107); CO2 23 mmol/L (21-32); CREATININE 1.9 mg/dL (0.55-1.02); POTASSIUM 3.9 mmol/L (3.5-5.1); SODIUM 139 mmol/L (136-145)
[2017-08-19 09:17] LABS: GLUCOSE,RANDOM 320 mg/dL (74-106)
[2017-08-19] MEDS ORDERED: PT OWN MED DRAWER 7, Y5N ONE (09:22)
[2017-08-19] MEDS ORDERED: cefTRIAXone SODIUM 1 GM VIAL ONE ×2 (09:23→10:08)
[2017-08-19] MEDS ORDERED: DEXTROSE 5%-WATER - 50 ML IVPB ONE ×2 (09:23→10:08)
[2017-08-19] MEDS: ISOSORBIDE MONONITRATE 60 MG TAB.SR.24H (FP) PO SCH (10:05)
[2017-08-19] MEDS: CARVEDILOL 6.25 MG TABLET (FP) PO SCH (10:05)
[2017-08-19] MEDS: ASPIRIN 81 MG CHEWABLE TABLETS PO SCH (10:05)
[2017-08-19] MEDS: CLOPIDOGREL BISULFATE 75 MG TABLET (FP) PO SCH (10:05)
[2017-08-19] MEDS: AZITHROMYCIN 250 MG TABLET PO SCH (10:05)
[2017-08-19] MEDS: CEFTRIAXONE 1 GM in DEXTROSE 5%-WATER - 50 ML IVPB SCH (10:11)
[2017-08-19] MEDS ORDERED: INSULIN (NOVOLOG) ASPART 100 UNITS/ML 10ML VIAL ONE (11:04)
[2017-08-19] MEDS ORDERED: ALBUTEROL SO4 18 GM HFA INHALER IH PRN (12:41)
--- NOTE | 2017-08-19 13:04 | DS ---
Physical Examination Vital Signs: Vital Signs Temperature 97.7 F 08/19/17 08:43 Pulse Rate 63 08/19/17 08:43 Respiratory Rate 20 08/19/17 08:43 Blood Pressure 136/81 08/19/17 08:43 O2 Sat by Pulse Oximetry (%) 97 08/19/17 01:00 - Elderly F feels improved since yesterday HEENT: Mm moist, + anemia, PERRLA EOMI NECK:+ JVd No Bruit CHEST: No Congestion CTA B/L CVS: S1S2 R SM in [place] ABD{ Obese non tender Bs + EXT: Edema feet +, no calf tenderness Pulses feeble in [facility] DIRECTOR: AOx3 non focal Labs: CBC, BMP 08/19/17 06:30 08/19/17 06:30 Discharge Summary Reason For Visit: ACUTE KIDNEY INJURY Current Active Problems ACC/AHA stage C congestive heart failure due to ischemic cardiomyopathy (Acute) MICHAEL (acute kidney injury) (Acute) CAD (coronary artery disease) (Acute) CKD stage 3 due to type 2 diabetes mellitus (Acute) Dehydration (Acute) Diarrhea (Acute) Hypercholesteremia (Acute) Hypotension (Acute) S/P MVR (mitral valve repair) (Acute) Systolic HF (heart failure) (Acute) T2DM (type 2 diabetes mellitus) (Acute) Hospital Course: 61 yrs old F multiple Co-morbidities H/O HTN, Dyslipedemia, CAD s/p Stent , MVR , Pacemaker, Ischemic Cardiomyopathy, systolic HF, CKD stgae 3, COPD actoive smoker, Chronic anemia, recently discharged from [facility] on 07/05 2017 after treated for CHF and COPD exacerbation with MICHAEL on CKD, patient was Dc to a rehab, yesterday present to ED for F/U c/o leg cramps feeling dry and Dizzy, patient also endorsed loose water diarrhea after discharged now improved 2 days ago, no c/o SOB, cough, fever, dysuria, abd pain , in the clinic BP recorded 83/50 so transferred to ED for evaluation, lab shows elevated BUN/Creat with Hypotention admitted for further evaluation and management of MICHAEL. Put on abx for ? bronchitis, BP meds held gradually reintroduced educated for smoking cessation Today hemodynamically stable afebrile is being Dc Home F/U PCP on Wednesday and cardiology in 2 wks. - Instructions Diet, Activity, Other Instructions: Low Salt low Cholesterol Diabetic Diet Referrals: Channing Elena MD [Primary Care Provider] - 08/24/17 10:00 am Fred Nichols MD [Staff Physician] - 2 Weeks - Home Medications Comprehensive Discharge Medication List: Ambulatory Orders Atorvastatin Ca [Lipitor] 10 mg PO HS 01/14/17 Clopidogrel Bisulfate [Plavix -] 75 mg PO DAILY 01/14/17 Gabapentin 400 mg PO TID 01/14/17 Insulin (Novolog) [Novolog Flexpen -] 0 units SQ ASDIR 01/14/17 Insulin Detemir [Levemir Flextouch] 34 unit SQ HS 08/17/17 Albuterol Sulfate Inhaler - [Ventolin HFA Inhaler -] 2 puff IH Q6H PRN 30 Days # 1 inhaler MDD 4 times 08/19/17 Aspirin [ASA -] 81 mg PO DAILY tab.chew 08/19/17 Azithromycin [Zithromax 250mg Tablets -] 250 mg PO DAILY 3 Days #3 tablet Carvedilol [Coreg -] 6.25 mg PO BID tablet 08/19/17 Isosorbide Mononitrate [Imdur -] 60 mg PO DAILY tab.sr.24h 08/19/17 Losartan Potassium [Cozaar -] 50 mg PO DAILY tablet 08/19/17 Melatonin 5 mg PO HS PRN tab 08/19/17 Salmeterol/Fluticasone [Advair 100Mcg/50Mcg -] 1 puff IH BID #1 inhaler
[2017-08-19 15:40] VITALS: BP 151/89; PULSE 70; TEMP 98.3
[2017-08-19] MEDS ORDERED: FLUTICASONE/SALMETEROL 100 MCG/50 MCG DISKUS IH SCH (22:00)
[2017-08-20 06:07] LABS: SERUM IRON SATURATION 19 % (15-55); TOTAL IRON BINDING CAPACITY 264 ug/dL (250-450); UIBC 214 ug/dL (131-425)
[2017-08-20] MEDS ORDERED: RANITIDINE HCL 150 MG TABLET (FP) PO SCH (10:00)
[2017-08-20] MEDS ORDERED: FUROSEMIDE 20 MG TABLET (FP) PO SCH (10:00)
[2017-08-20] MEDS ORDERED: LOSARTAN POTASSIUM 50 MG TABLET (FP) PO SCH (10:00)
--- NOTE | 2017-08-23 11:23 | CONS ---
DATE OF CONSULTATION: REQUESTING PHYSICIAN: Sylvie Mittal MD CHIEF COMPLAINT: 1. Nausea, vomiting, abdominal discomfort, and perfuse diarrhea. 2. Lightheadedness. HISTORY OF PRESENT ILLNESS: The patient is a 57-year-old female who was seen in consultation on August 18, 2017 and was recently discharged and readmitted with a history of nausea, recurrent vomiting, retching accompanied by abdominal discomfort and perfuse, recurring diarrhea. This had been proceeded by her eating frozen fish sticks. Her symptoms were accompanied by lightheadedness and progressive shortness of breath. There was no history of chest pain or discomfort either at rest or with exertion. She did have orthopnea and dyspnea on minimal exertion. She has a known case of hypertension, diabetes mellitus that previously was poorly controlled, hyperlipidemia, history of myocardial infarction status post PCI/stenting (stents closed), history of mitral valve repair, history of gait disturbance, and peripheral neuropathy. She also has a history of peripheral arterial disease, status post permanent pacemaker. History of hypercholesterolemia. She denies having palpitations. She has lightheadedness, but there is no history of presyncope or syncope. There is no history of palpitations. No history of cough or expectoration. There is history of being hot but denies any chills or fever. She recently had an episode of acute bronchitis. Since admission, the symptoms have started to ana. She was able to eat breakfast without difficulty. CURRENT MEDICATIONS: As follows: 1. Zofran 4 mg IV q.6 hours p.r.n. 2. Advair 1 inhalation b.i.d. 3. Cozaar 50 mg p.o. daily. 4. Gabapentin 400 mg p.o. t.i.d. 5. Ventolin 2 inhalations q.6 hours p.r.n. 6. Coreg 6.25 mg p.o. b.i.d. 7. She is receiving normal saline at 75 mL/hr. 8. Ranitidine 150 mg p.o. daily. 9. Atorvastatin 10 mg p.o. daily. 10. NovoLog insulin via sliding scale. 11. Levemir insulin 34 units subcutaneous nightly. 12. Furosemide 20 mg p.o. daily. 13. Isosorbide mononitrate 60 mg p.o. daily. 14. Ecotrin 81 mg p.o. daily. 15. Clopidogrel 75 mg p.o. daily. 16. Aspirin 81 mg p.o. daily. 17. Melatonin 5 mg p.o. daily. ALLERGIES: SHELLFISH/IODINE. PHYSICAL EXAMINATION: General: A 61-year-old female who is a smoker who is in no acute distress at the time of examination. There is no pallor, cyanosis, clubbing, or jaundice. Vital Signs: Blood pressure 135/75 mmHg, pulse 72 beats per minute and regular, temperature 97.9 degrees Fahrenheit, respirations 20 per minute, weight 200 pounds on admission. Neck: Supple. No jugular venous distention. Carotids are 2+. Upstrokes are normal. No bruits are heard. No thyromegaly is present. Heart: PMI is in the 5th intercostal space. Heart sounds are distant. Grade 1/6 decrescendo systolic murmur is heard at the apex. No diastolic murmur or gallops are heard. Lungs: Clear on auscultation. Decreased breath sounds at the right base. Abdomen: Obese, soft, and nontender. No hepatosplenomegaly or palpable masses are felt. Extremities: No calf tenderness or dependent edema. Right femoral pulse is 1+. Left cannot be palpated. Left dorsalis pedis and posterior tibial pulses are not palpable. Right posterior tibial pulses not palpable. Right dorsalis pedis is weak. LABORATORY DATA: CBC August 21, 2017 WBC count 11,200, differential reveals slightly increased neutrophils, hemoglobin 11.5 g. Repeat CBC on August 23, 2017: WBC count 9000, hemoglobin 11 g/dL, platelet count 204,000. Chemistry on August 22, 2017: Sodium 141, potassium 4, chloride 110, CO2 is 22 mmol/L, BUN 21, creatinine 1.8 mg/dL. Creatinine clearance was reported to be 28.80. Glucose was 278. Alkaline phosphatase was elevated at 397. BNP was 17,280.94. Repeat basic metabolic profile on August 23: Sodium 140, potassium 4, chloride 109, CO2 was 24, BUN 35, creatinine 2.2. X-ray chest August 21, 2017: Large heart, pacemaker. No acute chest pathology appreciated. ECG revealed sinus rhythm with intraatrial conduction abnormalities, prolongation of QTc interval with in selected leads, diffuse, nonspecific ST and T-wave abnormalities. IMPRESSION: 1. Nausea, vomiting, abdominal discomfort, diarrhea, etiology: A. Secondary to gastroenteritis. 2. Recurrence of congestive heart failure. 3. Coronary artery disease status post multivessel percutaneous coronary intervention, angina pectoris. 4. Hypertension. 5. Insulin-dependent diabetes mellitus. 6. Chronic kidney disease. 7. Peripheral arterial disease. 8. Peripheral neuropathy. 9. Tobacco abuse. 10. Poor compliance. 11. Mitral valve repair. 12. Chronic obstructive pulmonary disease. 13. History of pulmonary hypertension. 14. Left ventricular systolic dysfunction of moderate severity. See echocardiogram report. 15. Lightheadedness, etiology to be determined. PLAN: 1. Concur with current line of treatment. 2. Check blood pressure supine and standing. 3. Risk modifications of paramount importance. 4. Cessation of smoking. 5. Salt restriction. 6. Follow up basic metabolic profile. 7. Daily weights. 8. She was advised to have a close medical follow up as she has recently moved from [facility]. PROGNOSIS: Guarded. Thank you for your referral. Yours Sincerely, CARLOS CASTILLO M.D. [id number]
== END 2017-08-19 17:45 | disposition home health service (06) ==
LOC: JER 12:19 → JERBED 15:31 → J5S 18:14
PROVIDERS: ADMIT Internal Medicine; ATTEND Internal Medicine
PROC: 3E03329 Introduction of Other Anti-infective into Peripheral Vein, Percutaneous Approach (ICD-10-PCS; principal; 2017-08-17)
PROC: 3E0337Z Introduction of Electrolytic and Water Balance Substance into Peripheral Vein, Percutaneous Approach (ICD-10-PCS; 2017-08-17)
PROC: 3E013VG Introduction of Insulin into Subcutaneous Tissue, Percutaneous Approach (ICD-10-PCS; 2017-08-17)
PROC: 3E013GC Introduction of Other Therapeutic Substance into Subcutaneous Tissue, Percutaneous Approach (ICD-10-PCS; 2017-08-17)
PROC: 3E03329 Introduction of Other Anti-infective into Peripheral Vein, Percutaneous Approach (ICD-10-PCS; 2017-08-17)
PROC: 3E0337Z Introduction of Electrolytic and Water Balance Substance into Peripheral Vein, Percutaneous Approach (ICD-10-PCS; 2017-08-17)
PROC: 3E0F7GC Introduction of Other Therapeutic Substance into Respiratory Tract, Via Natural or Artificial Opening (ICD-10-PCS; 2017-08-17)
DX: N17.9 Acute kidney failure, unspecified (principal); E86.0 Dehydration; I25.10 Atherosclerotic heart disease of native coronary artery without angina pectoris; I50.20 Unspecified systolic (congestive) heart failure; I25.5 Ischemic cardiomyopathy; E11.22 Type 2 diabetes mellitus with diabetic chronic kidney disease; I12.9 Hypertensive chronic kidney disease with stage 1 through stage 4 chronic kidney disease, or unspecified chronic kidney disease; F17.210 Nicotine dependence, cigarettes, uncomplicated; N18.3 Chronic kidney disease, stage 3 (moderate); Z79.4 Long term (current) use of insulin; E23.2 Diabetes insipidus; Z79.82 Long term (current) use of aspirin; Z91.048 Other nonmedicinal substance allergy status; E78.5 Hyperlipidemia, unspecified; J44.9 Chronic obstructive pulmonary disease, unspecified; H40.9 Unspecified glaucoma; Z95.2 Presence of prosthetic heart valve; Z95.0 Presence of cardiac pacemaker; D64.9 Anemia, unspecified; K21.9 Gastro-esophageal reflux disease without esophagitis; M54.5 Low back pain; G89.29 Other chronic pain; R19.7 Diarrhea, unspecified
CPT/HCPCS: 36415; 71045-TC-FY; 80048; 80053; 80061; 81003; 81015; 82728; 82803; 82962; 83036; 83540; 83550; 83605; 83721; 83735; 84443; 84484; 85025; 85610; 85730; 87040; 87086; 93005; 93010; 93306-TC; 94640; 96361; 96365; 96368; 96372; 96376; 99284-25; G0378; J1644; J7030

== ENCOUNTER 2017-08-21 11:15 | Inpatient (IN) | payer OTHER, BC ==
[2017-08-21 11:43] VITALS: BMI 34.3
--- NOTE | 2017-08-21 11:58 | PDOC ---
History of Present Illness - General History Source: Patient, Family Exam Limitations: No Limitations - History of Present Illness Initial Comments: 08/21/17 13:35 The patient is a 61 year old female, with a significant past medical history of IDDM, COPD, HTN, HLD, glaucoma, mitral valve replacement, stents, s/p pacemaker , who presents to the emergency department with, 2 days of nausea, emesis, epigastric pain, and 3 episodes of diarrhea. The patient reports minimal streaks of blood in her emesis. Secondary to her symptoms, she reports to be hot , dizzy, shortness of breath, and decreased appetite. As per patients daughter she had slurred speech three days ago. The patient was admitted to the hospital a week ago for dehydration. She denies recent fevers, chills, or headache. She denies recent constipation. She denies recent dysuria, frequency, urgency or hematuria. She denies recent chest pain or shortness of breath. Allergies: Iodine. Primary Care Physician: Dr. Elena <Fabiola Mckeon - Last Filed: 08/21/17 15:32> <Rody Blank - Last Filed: 08/21/17 16:48> - General Chief Complaint: Nausea/Vomiting Stated Complaint: REVISIT/ RESPIRATORY Time Seen by Provider: 08/21/17 11:57 Past History <Fabiola Mckeon - Last Filed: 08/21/17 15:32> - Past Medical History Cardiac Disorders: Yes (PACEMAKER) COPD: Yes Diabetes: Yes HTN: Yes Hypercholesterolemia: Yes - Surgical History Cardiac Surgery: Yes (MITRAL VALVE REPLACEMET W/ STENT) - Immunization History Immunization Up to Date: Yes - Suicide/Smoking/Psychosocial Hx Smoking History: Never smoked Number of Cigarettes Smoked Daily: 5 Information on smoking cessation initiated: No Hx Alcohol Use: No Drug/Substance Use Hx: No Substance Use Type: None <Rody Blank - Last Filed: 08/21/17 16:48> - Past Medical History Allergies/Adverse Reactions: Allergies Allergy/AdvReac Type Severity Reaction Status Date / Time iodine Allergy Verified 08/21/17 11:43 Home Medications: Ambulatory Orders Atorvastatin Ca [Lipitor] 10 mg PO HS 01/14/17 Clopidogrel Bisulfate [Plavix -] 75 mg PO DAILY 01/14/17 Gabapentin 400 mg PO TID 01/14/17 Insulin (Novolog) [Novolog Flexpen -] 0 units SQ ASDIR 01/14/17 Insulin Detemir [Levemir Flextouch] 34 unit SQ HS 08/17/17 Albuterol Sulfate Inhaler - [Ventolin HFA Inhaler -] 2 puff IH Q6H PRN 30 Days # 1 inhaler MDD 4 times 08/19/17 Aspirin [ASA -] 81 mg PO DAILY tab.chew 08/19/17 Azithromycin [Zithromax 250mg Tablets -] 250 mg PO DAILY 3 Days #3 tablet Carvedilol [Coreg -] 6.25 mg PO BID tablet 08/19/17 Furosemide [Lasix -] 20 mg PO DAILY #14 tablet 08/19/17 Isosorbide Mononitrate [Imdur -] 60 mg PO DAILY tab.sr.24h 08/19/17 Losartan Potassium [Cozaar -] 50 mg PO DAILY tablet 08/19/17 Melatonin 5 mg PO HS PRN tab 08/19/17 Ranitidine [Zantac -] 150 mg PO DAILY #30 tablet 08/19/17 Salmeterol/Fluticasone [Advair 100Mcg/50Mcg -] 1 puff IH BID #1 inhaler Review of Systems - Review of Systems Able to Perform ROS?: Yes Comments:: 08/21/17 13:35 Constitutional - Pt denies Fever, Chills, weakness, HEENT: denies vision changes, sore throat (+)Respiratory: Shortness of breath. Denies cough,hemoptysis Cardiac: denies chest pain, palpitations, light headedness, leg swelling (+)Abd/GI:Nausea, Vomiting, Diarrhea, Epigastric pain. denies blood per rectum, melena : denies dysuria, frequency, discharge Musculskelatal - denies back pain, joint swelling skin - denies bruising, erythema, rash (+)neurological: Dizziness. denies headache, numbness, focal weakness, tingling , ataxia, weakness hematologic: denies anemia, easy bruising, easy bleeding All Other Systems: Reviewed and Negative <Fabiola Mckeon - Last Filed: 08/21/17 15:32> *Physical Exam - Vital Signs Last Vital Signs Temp Pulse Resp BP Pulse Ox 98.7 F 76 18 166/96 100 08/21/17 11:40 08/21/17 11:40 08/21/17 11:40 08/21/17 11:40 08/21/17 11:40 - Physical Exam Comments: 08/21/17 15:21 GENERAL: The patient is awake, alert, and fully oriented, Nontoxic - in no acute distress. HEAD: Normocephalic, atraumatic. EYES: extraocular movements intact, sclera anicteric, conjunctiva clear. (+)ENT: Dry mucous membrane. Normal voice. NECK: Normal range of motion, supple without lymphadenopathy, JVD, or masses. LUNGS: Breath sounds equal, clear to auscultation bilaterally. No wheezes, no crackles, no rales. HEART: Regular rate and rhythm, normal S1 and S2 without murmur, rub or gallop. (+)ABDOMEN: Distended. Soft, nontender, normoactive bowel sounds. No guarding, no rebound. No masses. (+)EXTREMITIES: Edema of the lower extremities. Normal range of motion. No clubbing or cyanosis. No cords, erythema, or tenderness. NEUROLOGICAL: Fully Oriented, Alert, Normal Mood/Affect, Motor Strength 5/5. No facial assymetry, Normal speech SKIN: Warm, Dry, normal turgor, no rashes or lesions noted. <Fabiola Mckeon - Last Filed: 08/21/17 15:32> - Vital Signs Last Vital Signs Temp Pulse Resp BP Pulse Ox 98.7 F 76 18 166/96 100 08/21/17 11:40 08/21/17 11:40 08/21/17 11:40 08/21/17 11:40 08/21/17 11:40 <Rody Blank - Last Filed: 08/21/17 16:48> ED Treatment Course - LABORATORY CBC & Chemistry Diagram: 08/21/17 12:52 08/21/17 12:52 - ADDITIONAL ORDERS Additional order review: 08/21/17 12:52 RBC 3.96 MCV 85.9 MCHC 33.7 RDW 14.1 MPV 8.3 Neutrophils % 76.8 D Lymphocytes % 13.4 D Monocytes % 5.9 Eosinophils % 2.9 Basophils % 1.0 - Medications Given in the ED: ED Medications Discontinued Medications Generic Name Dose Route Start Last Admin Trade Name Dulce PRN Reason Stop Dose Admin Ondansetron HCl 4 mg 08/21/17 12:56 08/21/17 13:17 Zofran Injection IVPUSH 08/21/17 12:57 4 mg ONCE ONE Administration Pantoprazole Sodium 40 mg 08/21/17 12:56 08/21/17 13:17 Protonix Iv IVPUSH 08/21/17 12:57 40 mg ONCE ONE Administration <Fabiola Mckeon - Last Filed: 08/21/17 15:32> - LABORATORY CBC & Chemistry Diagram: 08/21/17 12:52 08/21/17 12:52 <Rody Blank - Last Filed: 08/21/17 16:48> Medical Decision Making - Medical Decision Making 08/21/17 15:21 EKG performed at: 21 August 2017 Vent Rate 76 bpm NJ interval 164 ms QRS duration 112 ms QT/QTc 466/524 ms P-R-T axes 53 33 64 Normal sinus rhythm Prolonged QT Abnormal ECG 3:00pm Call placed to Dr. Elena's answering service, patient's PCP, awaiting call back. 3:30pm Call returned from Dr. Elena, case was discussed. <Fabiola Mckeon - Last Filed: 08/21/17 15:32> - Medical Decision Making 08/21/17 16:39I, Dr. Rody Blank, attest that the scribes documentation that appears above has been prepared under my direction and personally reviewed by me. I confirmed that the note above accurately reflects all work, treatment, procedures, and medical decision-making performed by me. Pt with elevated blood sugar treated with regular insulin and iv fluid, pt c/o feeling dizzy so ct of head was ordered but pt with no change in her neuro exam, pt has no focal weakness, pt is moving all extremities the dizziness that she has at present as been off an on for years , daughter now says pt recently had ct for thsi dizziness but sba underwriter was not aware of that fact and ct results are not available. Ct was already completed official reading is no avute intracranial changes noted. C ase discussed with Dr Elena will admit to hospital for uncontrolled diabetes, dizziness, and abdominal pain, pt in stable condition at time of this note. Fluid ordered as pt is dehydrated with elevated blood sugar 08/21/17 16:40 08/21/17 16:46 08/21/17 16:48 <Rody Blank - Last Filed: 08/21/17 16:48> *DC/Admit/Observation/Transfer - Attestations Scribe Attestion: 08/21/17 13:35 Documentation prepared by Fabiola Mckeon, acting as medical examiner for Rody Blank MD. <Fabiola Mckeon - Last Filed: 08/21/17 15:32> - Discharge Dispostion Admit: Yes <Rody Blank - Last Filed: 08/21/17 16:48> Diagnosis at time of Disposition: Uncontrolled diabetes mellitus, Diarrhea, Nausea & vomiting - Discharge Dispostion Condition at time of disposition: Stable
[2017-08-21] MEDS ORDERED: ONDANSETRON 4 MG/2 ML VIAL IVPUSH ONE (12:56)
[2017-08-21] MEDS ORDERED: PANTOPRAZOLE SODIUM 40 MG VIAL IVPUSH ONE (12:56)
[2017-08-21 13:00] LABS: EOS % 2.9 % (0-4.5); HEMOGLOBIN 11.5 GM/dL (10.7-15.3); LYMPH % 13.4 % (8-40); MCH 28.9 pg (25.7-33.7); MCHC 33.7 g/dl (32.0-36.0); MEAN CELL VOLUME 85.9 fl (80-96); MEAN PLT VOLUME 8.3 fl (7.5-11.1); MONO % 5.9 % (3.8-10.2); NEUT % 76.8 % (42.8-82.8); PLATELET COUNT 234 K/MM3 (134-434); RBC 3.96 M/mm3 (3.60-5.2); RDW 14.1 % (11.6-15.6); WHITE BLOOD COUNT 11.2 K/mm3 (4.0-10.0)
[2017-08-21] MEDS ORDERED: PANTOPRAZOLE SODIUM 40 MG/100 ML BAG IVPB ONE (13:11)
[2017-08-21] MEDS ORDERED: ONDANSETRON 4 MG/2 ML VIAL ONE (13:11)
[2017-08-21 13:38] LABS: AMYLASE 45 U/L (25-115)
[2017-08-21 13:40] LABS: ALBUMIN 3.1 g/dl (3.4-5.0); ANION GAP 11 (8-16); BILIRUBIN,TOTAL 0.7 mg/dL (0.2-1.0); BLOOD UREA NITROGEN 22 mg/dL (7-18); CALCIUM 9.2 mg/dL (8.5-10.1); CHLORIDE 102 mmol/L (98-107); CO2 22 mmol/L (21-32); CREATININE 1.7 mg/dL (0.55-1.02); SGPT/ALT 21 U/L (12-78); SODIUM 135 mmol/L (136-145); TOT PROT 7.6 g/dl (6.4-8.2)
[2017-08-21 13:42] LABS: LIPASE 207 U/L (73-393); POTASSIUM 5.1 mmol/L (3.5-5.1)
[2017-08-21 13:43] LABS: ALK PHOS 491 U/L (45-117); GLUCOSE,RANDOM 411 mg/dL (74-106); SGOT/AST 36 U/L (15-37)
[2017-08-21] MEDS ORDERED: INSULIN REGULAR HUMAN 100 UNITS/ML *VIAL SQ ONE (13:46)
[2017-08-21] MEDS ORDERED: INSULIN REGULAR HUMAN 100 UNITS/ML *VIAL ONE (13:50)
[2017-08-21 13:52] LABS: URINE APPEARANCE SLCLOUDY; URINE BILIRUBIN NEGATIVE (<2.0 mg/dL); URINE COLOR STRAW; URINE GLUCOSE (UA) 3+ (NEGATIVE); URINE KETONE NEGATIVE (NEGATIVE); URINE LEUK ESTERASE NEGATIVE (NEGATIVE); URINE NITRITE NEGATIVE (NEGATIVE); URINE UROBILINOGEN NEGATIVE mg/dL (0.2-1.0)
[2017-08-21 14:00] LABS: URINE PROTEIN 3+ (NEGATIVE)
[2017-08-21 14:03] LABS: EPI CELLS FEW /HPF (FEW); URINE MUCUS RARE; YEAST FEW
[2017-08-21] MEDS ORDERED: ACETAMINOPHEN 1000 MG/100 ML VIAL (NON FORMULARY) IVPB ONE (14:57)
[2017-08-21] MEDS ORDERED: ACETAMINOPHEN INJECTION 100 ML IVPB ONE (15:04)
[2017-08-21] MEDS ORDERED: SODIUM CHLORIDE 1,000 ML IV STA (15:16)
[2017-08-21] MEDS ORDERED: ALBUTEROL SO4 18 GM HFA INHALER IH PRN (20:49)
[2017-08-21] MEDS ORDERED: AZITHROMYCIN 250 MG TABLET PO ONE (21:00)
[2017-08-21] MEDS: GABAPENTIN 400 MG CAPSULE (FP) PO SCH (21:48)
[2017-08-21] MEDS: ATORVASTATIN CA 10 MG TABLET (FP) PO SCH (21:48)
[2017-08-21] MEDS: CARVEDILOL 6.25 MG TABLET (FP) PO SCH (21:49)
[2017-08-21] MEDS: INSULIN (LEVEMIR) 100 UNITS/ML UNITS SQ SCH (21:49)
[2017-08-21] MEDS: FLUTICASONE/SALMETEROL 100 MCG/50 MCG DISKUS IH SCH (21:49)
[2017-08-21] MEDS: INSULIN SLIDING SCALE (NOVOLOG) 1 VIAL SQ SCH (21:49)
[2017-08-21] MEDS: MELATONIN 5 MG TABLETS PO PRN (21:50)
[2017-08-21] MEDS ORDERED: PT OWN MED DRAWER 7, Y5N ONE ×2 (22:18→22:34)
--- NOTE | 2017-08-21 22:24 | EKG ---
Test Reason : Blood Pressure : / mmHG Vent. Rate : 076 BPM Atrial Rate : 076 BPM P-R Int : 164 ms QRS Dur : 112 ms QT Int : 466 ms P-R-T Axes : 053 033 064 degrees QTc Int : 524 ms NORMAL SINUS RHYTHM PROLONGED QT ABNORMAL ECG WHEN COMPARED WITH ECG OF 17-AUG-2017 12:33, T WAVE INVERSION NO LONGER EVIDENT IN LATERAL LEADS Confirmed by ALEJANDRA CALVO, ROBERTH ([id number]) on 08/21/2017 10:24:14 PM Referred By: Confirmed By:ROBERTH ROBERTS MD
[2017-08-22] MEDS: INSULIN SLIDING SCALE (NOVOLOG) 1 VIAL SQ SCH ×4 (06:07→21:21)
[2017-08-22] MEDS: GABAPENTIN 400 MG CAPSULE (FP) PO SCH ×3 (06:39→21:17)
[2017-08-22] MEDS: RANITIDINE HCL 150 MG TABLET (FP) PO SCH (09:17)
[2017-08-22] MEDS: CARVEDILOL 6.25 MG TABLET (FP) PO SCH ×2 (09:17→21:17)
[2017-08-22] MEDS: LOSARTAN POTASSIUM 50 MG TABLET (FP) PO SCH (09:17)
[2017-08-22] MEDS: ISOSORBIDE MONONITRATE 60 MG TAB.SR.24H (FP) PO SCH (09:17)
[2017-08-22] MEDS: CLOPIDOGREL BISULFATE 75 MG TABLET (FP) PO SCH (09:17)
[2017-08-22] MEDS: ASPIRIN COATED 81 MG TABLET.EC PO SCH (09:17)
[2017-08-22] MEDS: FUROSEMIDE 20 MG TABLET (FP) PO SCH (09:17)
[2017-08-22] MEDS: FLUTICASONE/SALMETEROL 100 MCG/50 MCG DISKUS IH SCH ×2 (10:50→21:18)
--- NOTE | 2017-08-22 11:57 | HP ---
Admitting History and Physical - Primary Care Physician PCP: Channing Elena - Admission Chief Complaint: Nausea, vomiting and abd pain History of Present Illness: 61 yrs old F multiple Co-morbidities H/O HTN, Dyslipedemia, CAD s/p Stent , MVR , Pacemaker, Ischemic Cardiomyopathy, systolic HF, CKD stgae 3, COPD, smoker, Chronic anemia, recently discharged from [facility] after treated for [place], dehydration and Hypotention, patient developed epigastric pain, nausea nd 2 episodes of diarrhea since discharge came to [facility] for evaluation w/u shows elevated blood glucose and , elevated alk phosphate admitted for further management, no c/o fever, chills, chest pain, plapitation, worsening Le edema or PND, today feels improved no BM since last night. 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 Cardiovascular: Yes: CAD, CHF, Pulmonary Hypertension Pulmonary: Yes: COPD Gastrointestinal: Yes: GERD Heme/Onc: Yes: Anemia Musculoskeletal: Yes: Chronic low back pain Endocrine: Yes: Diabetes Insipidus - Smoking History Smoking history: Former smoker Have you smoked in the past 12 months: Yes Aproximately how many cigarettes per day: 5 - Alcohol/Substance Use Hx Alcohol Use: No - Social History ADL: Family Assistance Home Medications - Allergies Allergies/Adverse Reactions: Allergies Allergy/AdvReac Type Severity Reaction Status Date / Time iodine Allergy Verified 08/21/17 11:43 - Home Medications Home Medications: Ambulatory Orders Atorvastatin Ca [Lipitor] 10 mg PO HS 01/14/17 Clopidogrel Bisulfate [Plavix -] 75 mg PO DAILY 01/14/17 Gabapentin 400 mg PO TID 01/14/17 Insulin (Novolog) [Novolog Flexpen -] 0 units SQ ASDIR 01/14/17 Insulin Detemir [Levemir Flextouch] 34 unit SQ HS 08/17/17 Albuterol Sulfate Inhaler - [Ventolin HFA Inhaler -] 2 puff IH Q6H PRN 30 Days # 1 inhaler MDD 4 times 08/19/17 Aspirin [ASA -] 81 mg PO DAILY tab.chew 08/19/17 Azithromycin [Zithromax 250mg Tablets -] 250 mg PO DAILY 3 Days #3 tablet Carvedilol [Coreg -] 6.25 mg PO BID tablet 08/19/17 Furosemide [Lasix -] 20 mg PO DAILY #14 tablet 08/19/17 Isosorbide Mononitrate [Imdur -] 60 mg PO DAILY tab.sr.24h 08/19/17 Losartan Potassium [Cozaar -] 50 mg PO DAILY tablet 08/19/17 Melatonin 5 mg PO HS PRN tab 08/19/17 Ranitidine [Zantac -] 150 mg PO DAILY #30 tablet 08/19/17 Salmeterol/Fluticasone [Advair 100Mcg/50Mcg -] 1 puff IH BID #1 inhaler Aspirin Coated [Ecotrin -] 81 mg PO DAILY tablet.ec 08/24/17 Atorvastatin Ca [Lipitor] 10 mg PO HS tablet 08/24/17 Carvedilol [Coreg -] 6.25 mg PO BID tablet 08/24/17 Clopidogrel Bisulfate [Plavix -] 75 mg PO DAILY tablet 08/24/17 Furosemide [Lasix -] 20 mg PO DAILY tablet 08/24/17 Gabapentin [Neurontin -] 400 mg PO TID capsule 08/24/17 Insulin (Levemir) [Levemir Vial] 34 units SQ HS ml 08/24/17 Insulin Sliding Scale [Novolog Vial Sliding Scale -] 1 vial SQ ACHS units 08/24 Isosorbide Mononitrate [Imdur -] 60 mg PO DAILY tab.sr.24h 08/24/17 Losartan Potassium [Cozaar -] 50 mg PO DAILY tablet 08/24/17 Melatonin 5 mg PO HS PRN tab 08/24/17 Salmeterol/Fluticasone [Advair 100Mcg/50Mcg -] 1 puff IH BID inhaler 08/24/17 Family Disease History - Family Disease History Family History: Unremarkable Review of Systems - Review of Systems Constitutional: reports: Malaise. denies: Chills, Diaphoresis, Fever Eyes: denies: Blurred Vision, Double Vision HENT: denies: Difficult Swallowing, Ear Pain Neck: denies: Decreased ROM, Lumps, Pain on Movement Cardiovascular: reports: Edema, Shortness of Breath. denies: Chest Pain, Palpitations Respiratory: reports: Cough, Exercise Intolerance Gastrointestinal: reports: Abdominal Pain, Diarrhea, Indigestion, Nausea. denies: Melena, Rectal Bleeding Musculoskeletal: denies: Back Pain, Crepitus Neurological: denies: Change in LOC, Change in Speech Endocrine: denies: Excessive Sweating, Flushing Physical Examination Vital Signs: Vital Signs Temperature 98.4 F 08/22/17 08:04 Pulse Rate 69 08/22/17 08:04 Respiratory Rate 20 08/22/17 08:04 Blood Pressure 125/76 08/22/17 08:04 O2 Sat by Pulse Oximetry (%) 100 08/22/17 08:02 Elderly F feels improved since yesterday, no c/o abd pain HEENT: Mm moist, + anemia, PERRLA EOMI NECK:+ JVd No Bruit CHEST: No Congestion CTA B/L CVS: S1S2 R SM in [place] ABD: Obese mild tender Bs + EXT: Jhonathan afeet +, no calf tenderness Pulses feeble in LE SCRUB TECHNICIAN: AOx3 non focal Labs: CBC, BMP 08/21/17 12:52 08/21/17 12:52 Problem List - Problems (1) Diarrhea Assessment/Plan: Present with on going diarrhea for past 2-3 months can be due to diabetic dysutonemia will F/U stool w/U Stool H Pylori ag, c diff, wbc and Culture, normal lipase level F/U GI recommendation. Code(s): R19.7 - DIARRHEA, UNSPECIFIED (2) Nausea & vomiting Assessment/Plan: Cont Zofran Prn and IV Ppi Code(s): R11.2 - NAUSEA WITH VOMITING, UNSPECIFIED (3) Uncontrolled diabetes mellitus Assessment/Plan: Due to non compliance cont levimir 34 units with correction dose insulin Code(s): E11.65 - TYPE 2 DIABETES MELLITUS WITH HYPERGLYCEMIA (4) ACC/AHA stage C congestive heart failure due to ischemic cardiomyopathy Assessment/Plan: Compensated cont B Blockers, Lasix and losartan Code(s): I50.9 - HEART FAILURE, UNSPECIFIED; I25.5 - ISCHEMIC CARDIOMYOPATHY (5) CKD stage 3 due to type 2 diabetes mellitus Assessment/Plan: Reanl functions are stable Code(s): E11.22 - TYPE 2 DIABETES MELLITUS W DIABETIC CHRONIC KIDNEY DISEASE; N18.3 - CHRONIC KIDNEY DISEASE, STAGE 3 (MODERATE) (6) S/P MVR (mitral valve repair) Assessment/Plan: No active issue Code(s): Z98.890 - OTHER SPECIFIED POSTPROCEDURAL STATES (7) CAD (coronary artery disease) Assessment/Plan: S/P stent on ASA and Plavix we may stop Plavix will discuss with Cardiology consult. Code(s): I25.10 - ATHSCL HEART DISEASE OF [place] CORONARY ARTERY W/O ANG PCTRS (8) Anemia Assessment/Plan: patient has h/o gerd c/o epigastric pain on Dual antipletetlete cont IV PPi GI consult Code(s): D64.9 - ANEMIA, UNSPECIFIED (9) Elevated alkaline phosphatase level Assessment/Plan: Can be due to dehydration CT abd not posssible due ro renal functions F/U abd ultrasound. Code(s): R74.8 - ABNORMAL LEVELS OF OTHER SERUM ENZYMES (10) Heart failure, systolic, with acute decompensation Assessment/Plan: C/O SOb Blood W/u shows Decopensated sHF Cont IV Lasix, B Blockers, Losartan Code(s): I50.23 - ACUTE ON CHRONIC SYSTOLIC (CONGESTIVE) HEART FAILURE
[2017-08-22] MEDS: SODIUM CHLORIDE 1,000 ML IV SCH (12:02)
[2017-08-22 12:45] LABS: ALBUMIN 2.9 g/dl (3.4-5.0); ANION GAP 9 (8-16); BILIRUBIN,TOTAL 0.4 mg/dL (0.2-1.0); BLOOD UREA NITROGEN 21 mg/dL (7-18); CALCIUM 8.6 mg/dL (8.5-10.1); CHLORIDE 110 mmol/L (98-107); CO2 22 mmol/L (21-32); CREATININE 1.8 mg/dL (0.55-1.02); GLUCOSE,RANDOM 119 mg/dL (74-106); SGOT/AST 21 U/L (15-37); SGPT/ALT 16 U/L (12-78); SODIUM 141 mmol/L (136-145); TOT PROT 6.8 g/dl (6.4-8.2)
[2017-08-22 12:48] LABS: ALK PHOS 397 U/L (45-117); N-TERMINAL BNP 17280.94 pg/ml (5-125)
[2017-08-22] MEDS: ATORVASTATIN CA 10 MG TABLET (FP) PO SCH (21:17)
[2017-08-22] MEDS: INSULIN (LEVEMIR) 100 UNITS/ML UNITS SQ SCH (21:19)
[2017-08-22] MEDS: MELATONIN 5 MG TABLETS PO PRN (21:26)
[2017-08-23] MEDS: INSULIN SLIDING SCALE (NOVOLOG) 1 VIAL SQ SCH ×4 (06:01→21:29)
[2017-08-23] MEDS: GABAPENTIN 400 MG CAPSULE (FP) PO SCH ×3 (06:01→21:29)
[2017-08-23 07:37] LABS: HEMATOCRIT 33.1 % (32.4-45.2); LYMPH % 34.3 % (8-40); MCH 29.1 pg (25.7-33.7); MCHC 33.2 g/dl (32.0-36.0); MEAN CELL VOLUME 87.8 fl (80-96); MEAN PLT VOLUME 8.6 fl (7.5-11.1); MONO % 9.1 % (3.8-10.2); NEUT % 50.6 % (42.8-82.8); RBC 3.77 M/mm3 (3.60-5.2); RDW 14.2 % (11.6-15.6)
[2017-08-23] MEDS ORDERED: ONDANSETRON 4 MG/2 ML VIAL IVPUSH PRN (07:59)
[2017-08-23 08:00] LABS: ANION GAP 7 (8-16); BLOOD UREA NITROGEN 35 mg/dL (7-18); CALCIUM 8.6 mg/dL (8.5-10.1); CHLORIDE 109 mmol/L (98-107); CO2 24 mmol/L (21-32); CREATININE 2.2 mg/dL (0.55-1.02); GLUCOSE,RANDOM 96 mg/dL (74-106); SODIUM 140 mmol/L (136-145)
[2017-08-23 09:06] LABS: PLATELET COUNT 204 K/MM3 (134-434)
[2017-08-23 09:07] LABS: PLATELET ESTIMATE ADEQUATE
--- NOTE | 2017-08-23 09:22 | PN ---
Progress Note, Physician Chief Complaint: SOB little better - Current Medication List Current Medications: Active Medications Albuterol Sulfate (Ventolin Hfa Inhaler -) 2 puff IH Q6H PRN PRN Reason: SHORTNESS OF BREATH Aspirin (Ecotrin -) 81 mg PO DAILY [facility] Last Admin: 08/22/17 09:17 Dose: 81 mg Atorvastatin Calcium (Lipitor -) 10 mg PO HS [facility] Last Admin: 08/22/17 21:17 Dose: 10 mg Carvedilol (Coreg -) 6.25 mg PO BID [facility] Last Admin: 08/22/17 21:17 Dose: 6.25 mg Clopidogrel Bisulfate (Plavix -) 75 mg PO DAILY [facility] Last Admin: 08/22/17 09:17 Dose: 75 mg Furosemide (Lasix -) 20 mg PO DAILY [facility] Last Admin: 08/22/17 09:17 Dose: 20 mg Gabapentin (Neurontin -) 400 mg PO TID [facility] Last Admin: 08/23/17 06:01 Dose: Not Given Sodium Chloride (Normal Saline -) 1,000 mls @ 75 mls/hr IV ASDIR [facility] Last Admin: 08/22/17 12:02 Dose: 75 mls/hr Insulin Aspart (Novolog Vial Sliding Scale -) 1 vial SQ ACHS [facility] PRN Reason: Protocol Last Admin: 08/23/17 06:01 Dose: Not Given Insulin Detemir (Levemir Vial) 34 units SQ HS [facility] Last Admin: 08/22/17 21:19 Dose: 34 units Isosorbide Mononitrate (Imdur -) 60 mg PO DAILY [facility] Last Admin: 08/22/17 09:17 Dose: 60 mg Losartan Potassium (Cozaar -) 50 mg PO DAILY [facility] Last Admin: 08/22/17 09:17 Dose: 50 mg Melatonin (Melatonin) 5 mg PO HS PRN PRN Reason: INSOMNIA Last Admin: 08/22/17 21:26 Dose: 5 mg Ondansetron HCl (Zofran Injection) 4 mg IVPUSH Q6H PRN PRN Reason: NAUSEA Pantoprazole Sodium (Protonix Iv) 40 mg IVPUSH DAILY [facility] Ranitidine HCl (Zantac -) 150 mg PO DAILY [facility] Last Admin: 08/22/17 09:17 Dose: 150 mg Fluticasone/Salmeterol (Advair 100mcg/50mcg -) 1 puff IH BID [facility] Last Admin: 08/22/17 21:18 Dose: 1 puff - Objective Vital Signs: Vital Signs Temperature 98.2 F 08/23/17 05:40 Pulse Rate 64 08/23/17 05:40 Respiratory Rate 18 08/23/17 05:40 Blood Pressure 150/78 08/23/17 05:40 O2 Sat by Pulse Oximetry (%) 98 08/22/17 20:10 Constitutional: Yes: No Distress Eyes: Yes: WNL HENT: Yes: WNL Neck: Yes: WNL Cardiovascular: Yes: Regular Rate and Rhythm Respiratory: Yes: Rales Gastrointestinal: Yes: WNL ...Rectal Exam: Yes: Deferred Genitourinary: Yes: WNL Musculoskeletal: Yes: Muscle Weakness Edema: No Neurological: Yes: Alert Labs: CBC, BMP 08/23/17 06:20 08/23/17 06:20 Assessment/Plan Lasix IV
[2017-08-23] MEDS: CARVEDILOL 6.25 MG TABLET (FP) PO SCH ×2 (09:26→21:29)
[2017-08-23] MEDS: LOSARTAN POTASSIUM 50 MG TABLET (FP) PO SCH (09:26)
[2017-08-23] MEDS: RANITIDINE HCL 150 MG TABLET (FP) PO SCH (09:26)
[2017-08-23] MEDS: CLOPIDOGREL BISULFATE 75 MG TABLET (FP) PO SCH (09:26)
[2017-08-23] MEDS: PANTOPRAZOLE SODIUM 40 MG VIAL IVPUSH SCH (09:26)
[2017-08-23] MEDS: FUROSEMIDE 20 MG TABLET (FP) PO SCH (09:26)
[2017-08-23] MEDS: ASPIRIN COATED 81 MG TABLET.EC PO SCH (09:26)
[2017-08-23] MEDS: ISOSORBIDE MONONITRATE 60 MG TAB.SR.24H (FP) PO SCH (09:26)
[2017-08-23] MEDS: FLUTICASONE/SALMETEROL 100 MCG/50 MCG DISKUS IH SCH ×2 (09:26→21:31)
[2017-08-23] MEDS ORDERED: FUROSEMIDE 40 MG/4 ML INJECTABLE VIAL IVPUSH ONE (10:00)
--- NOTE | 2017-08-23 10:37 | CON.GI ---
Consult Consult Specialty:: GI: Dr. Nixon covering for Dr. Silver Referred by:: Dr. Channing Elena Reason for Consultation:: Diarrhea - History of Present Illness Chief Complaint: Nausea, vomiting, diarrhea History of Present Illness: 61F admitted through [facility] ER for evaluation of N/V/D 08/21 that began this past Wednesday. She was recently seen in the ER 08/17 for 1 week of cough/sputum production along with chest pain. She was admitted for two days, treated for suspected CAP and discharged on Zithromax. She was also treated for COPD exacerbation and flu/PNA w/ Abx 2 months ago while living in [place], [place]. The nausea and vomiting has resolved and has not had a bowel movement since admission. She describes some epigastric pain that occurred only after multiple episodes of vomiting. This has improved as well and she states feeling hungry. She describes her diarrhea as a chronic pattern of not having a bowel movement for 2-3 days then having copious loose BM's. She also states having had an EGD and colonoscopy about a year ago in [place] that led to the removal of a colon polyp. There is no family history of colorectal cancer or other GI malignancy. 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 Mitral valvuloplasty, Angioplasty right leg - Alcohol/Substance Use Hx Alcohol Use: No History of Substance Use: reports: None - Smoking History Smoking history: Current every day smoker Have you smoked in the past 12 months: Yes Aproximately how many cigarettes per day: 5 - Social History Usual Living Arrangement: Alone ADL: Family Assistance Occupation: Retired Place of : [facility] Home Medications - Allergies Allergies/Adverse Reactions: Allergies Allergy/AdvReac Type Severity Reaction Status Date / Time iodine Allergy Verified 08/21/17 11:43 - Home Medications Home Medications: Ambulatory Orders Atorvastatin Ca [Lipitor] 10 mg PO HS 01/14/17 Clopidogrel Bisulfate [Plavix -] 75 mg PO DAILY 01/14/17 Gabapentin 400 mg PO TID 01/14/17 Insulin (Novolog) [Novolog Flexpen -] 0 units SQ ASDIR 01/14/17 Insulin Detemir [Levemir Flextouch] 34 unit SQ HS 08/17/17 Albuterol Sulfate Inhaler - [Ventolin HFA Inhaler -] 2 puff IH Q6H PRN 30 Days # 1 inhaler MDD 4 times 08/19/17 Aspirin [ASA -] 81 mg PO DAILY tab.chew 08/19/17 Azithromycin [Zithromax 250mg Tablets -] 250 mg PO DAILY 3 Days #3 tablet Carvedilol [Coreg -] 6.25 mg PO BID tablet 08/19/17 Furosemide [Lasix -] 20 mg PO DAILY #14 tablet 08/19/17 Isosorbide Mononitrate [Imdur -] 60 mg PO DAILY tab.sr.24h 08/19/17 Losartan Potassium [Cozaar -] 50 mg PO DAILY tablet 08/19/17 Melatonin 5 mg PO HS PRN tab 08/19/17 Ranitidine [Zantac -] 150 mg PO DAILY #30 tablet 08/19/17 Salmeterol/Fluticasone [Advair 100Mcg/50Mcg -] 1 puff IH BID #1 inhaler Family Disease History - Family Disease History Family Disease History: Other: Father ( 57: CVA), Mother ( 28: Ovarian Ca), Brother (1, [place]), Sister (2, 1 [place]), Son (1, healthy), Daughter (1 , healthy) Other Family History: No family history of colorectal cancer or other GI malignancy Review of Systems - Review of Systems Constitutional: denies: Fever, Loss of Appetite, Unintentional Wgt. Loss Cardiovascular: reports: Chest Pain (resolved), Edema (improved), Shortness of Breath (improved) Respiratory: reports: SOB (improved, baseline). denies: Cough Gastrointestinal: reports: Abdominal Pain (resolved), Diarrhea, Nausea (resolved ), Vomiting (resolved). denies: Bloating, Dysphagia, Melena, Rectal Bleeding, Vomiting Blood Physical Exam-GI Vital Signs: Vital Signs Temperature 97.9 F 08/23/17 09:31 Pulse Rate 72 08/23/17 09:31 Respiratory Rate 20 08/23/17 09:31 Blood Pressure 135/75 08/23/17 09:31 O2 Sat by Pulse Oximetry (%) 98 08/23/17 09:00 Constitutional: Yes: Calm Eyes: No: Sclera Icterus Cardiovascular: Yes: Regular Rate and Rhythm. No: Murmur Respiratory: Yes: CTA Bilaterally Gastrointestinal Inspection: Yes: Scars (+ Long oblique RUQ scar, + sternotomy scar extending to epigastrium). No: Distention ...Auscultate: Yes: Normoactive Bowel Sounds ...Palpate: Yes: Soft. No: Hepatomegaly, Splenomegaly, Tenderness ...Percussion: No: Tympanitic ...Rectal Exam: Yes: Other (With Sticker On: + external skin tags, no masses, formed light brown stool in rectal vault guaiac negative. No fecal impaction.) Labs: CBC, BMP 08/23/17 06:20 08/23/17 06:20 Imaging - Results Ultrasound: Other (US performed, report pending) Problem List - Problems (1) Diarrhea Assessment/Plan: No diarrhea currently and it sounds like an acute on chronic process. I suspect that the addition of zithromax to her current medication regimen may have contributed to this. The description of her chronic diarrhea complaints raises the question of paradoxical diarrhea where she may actually be retaining stool for some time and then eventually having loose BM's around the formed stool. The plan for now would be as follows: Stool for Culture, O&P and C. Diff (especially given recent abx exposure and hospital admissions) given acute complaints of diarrhea with continued evaluation of her chronic complaints w/ Dr. Silver/JED as an outpatient High fiber diet Code(s): R19.7 - DIARRHEA, UNSPECIFIED (2) Elevated alkaline phosphatase level Assessment/Plan: Isolated ALP elevation. Unclear etiology at this time. ? secondary to passive congestion. Was 583 4/147. PPM precludes MRCP evaluation. Check GGT / ALP isoenzymes (ordered). US pending. If GGT not elevated, consider evaluation for alternate sources such as bone etiology per PMD. Code(s): R74.8 - ABNORMAL LEVELS OF OTHER SERUM ENZYMES
[2017-08-23] MEDS: SODIUM CHLORIDE 1,000 ML IV SCH (12:00)
[2017-08-23] MEDS: ATORVASTATIN CA 10 MG TABLET (FP) PO SCH (21:29)
[2017-08-23] MEDS: MELATONIN 5 MG TABLETS PO PRN (21:36)
[2017-08-23] MEDS: INSULIN (LEVEMIR) 100 UNITS/ML UNITS SQ SCH (21:38)
[2017-08-24] MEDS: GABAPENTIN 400 MG CAPSULE (FP) PO SCH ×2 (05:47→16:50)
[2017-08-24] MEDS: INSULIN SLIDING SCALE (NOVOLOG) 1 VIAL SQ SCH ×3 (06:10→16:50)
--- NOTE | 2017-08-24 09:10 | DS ---
Physical Examination Vital Signs: Vital Signs Temperature 97.8 F 08/24/17 05:21 Pulse Rate 68 08/24/17 05:21 Respiratory Rate 20 08/24/17 05:21 Blood Pressure 131/66 08/24/17 05:21 O2 Sat by Pulse Oximetry (%) 99 08/23/17 20:07 Findings/Remarks: Admitted with near syncope,diagnosed to have CHF treated accordingly improved Blood sugar under good control Constitutional: Yes: No Distress Eyes: Yes: WNL HENT: Yes: WNL Neck: Yes: WNL Cardiovascular: Yes: Regular Rate and Rhythm Respiratory: Yes: WNL Gastrointestinal: Yes: Normal Bowel Sounds ...Rectal Exam: Yes: Deferred Renal/: Yes: WNL Breast(s): Yes: WNL Extremities: Yes: WNL Edema: No Neurological: Yes: Alert ...Motor Strength: WNL Psychiatric: Yes: Alert Labs: CBC, BMP 08/23/17 06:20 08/23/17 06:20 Discharge Summary Reason For Visit: UNCONTROLLED DIABETES MELLITUS,DIARRHEA Current Active Problems Anemia (Acute) Diarrhea (Acute) Elevated alkaline phosphatase level (Acute) Nausea & vomiting (Acute) Uncontrolled diabetes mellitus (Acute) Condition: Stable - Instructions Referrals: Channing Elena MD [Primary Care Provider] - Benita Silver MD [Staff Physician] - - Home Medications Comprehensive Discharge Medication List: Ambulatory Orders Atorvastatin Ca [Lipitor] 10 mg PO HS 01/14/17 Clopidogrel Bisulfate [Plavix -] 75 mg PO DAILY 01/14/17 Gabapentin 400 mg PO TID 01/14/17 Insulin (Novolog) [Novolog Flexpen -] 0 units SQ ASDIR 01/14/17 Insulin Detemir [Levemir Flextouch] 34 unit SQ HS 08/17/17 Albuterol Sulfate Inhaler - [Ventolin HFA Inhaler -] 2 puff IH Q6H PRN 30 Days # 1 inhaler MDD 4 times 08/19/17 Aspirin [ASA -] 81 mg PO DAILY tab.chew 08/19/17 Azithromycin [Zithromax 250mg Tablets -] 250 mg PO DAILY 3 Days #3 tablet Carvedilol [Coreg -] 6.25 mg PO BID tablet 08/19/17 Furosemide [Lasix -] 20 mg PO DAILY #14 tablet 08/19/17 Isosorbide Mononitrate [Imdur -] 60 mg PO DAILY tab.sr.24h 08/19/17 Losartan Potassium [Cozaar -] 50 mg PO DAILY tablet 08/19/17 Melatonin 5 mg PO HS PRN tab 08/19/17 Ranitidine [Zantac -] 150 mg PO DAILY #30 tablet 08/19/17 Salmeterol/Fluticasone [Advair 100Mcg/50Mcg -] 1 puff IH BID #1 inhaler
[2017-08-24] MEDS: CARVEDILOL 6.25 MG TABLET (FP) PO SCH (09:32)
[2017-08-24] MEDS: LOSARTAN POTASSIUM 50 MG TABLET (FP) PO SCH (09:32)
[2017-08-24] MEDS: FLUTICASONE/SALMETEROL 100 MCG/50 MCG DISKUS IH SCH (09:32)
[2017-08-24] MEDS: RANITIDINE HCL 150 MG TABLET (FP) PO SCH (09:32)
[2017-08-24] MEDS: PANTOPRAZOLE SODIUM 40 MG VIAL IVPUSH SCH (09:32)
[2017-08-24] MEDS: CLOPIDOGREL BISULFATE 75 MG TABLET (FP) PO SCH (09:32)
[2017-08-24] MEDS: FUROSEMIDE 20 MG TABLET (FP) PO SCH (09:32)
[2017-08-24] MEDS: ASPIRIN COATED 81 MG TABLET.EC PO SCH (09:32)
[2017-08-24] MEDS: ISOSORBIDE MONONITRATE 60 MG TAB.SR.24H (FP) PO SCH (09:32)
[2017-08-24 10:37] LABS: BILIRUBIN,DIRECT < 0.2 mg/dL (0.0-0.2); BILIRUBIN,TOTAL 0.2 mg/dL (0.2-1.0); SGOT/AST 20 U/L (15-37); SGPT/ALT 16 U/L (12-78); TOT PROT 6.8 g/dl (6.4-8.2)
[2017-08-24 10:38] LABS: ALK PHOS 416 U/L (45-117)
[2017-08-24 19:29] VITALS: BP 155/80; PULSE 70; TEMP 98
== END 2017-08-24 17:00 | disposition home or self-care (01) | DRG 73 ==
LOC: JER 11:15 → JERBED 15:36 → J4W 19:13
PROVIDERS: ADMIT Internal Medicine; ATTEND Internal Medicine
DX: E11.43 Type 2 diabetes mellitus with diabetic autonomic (poly)neuropathy (principal); I50.23 Acute on chronic systolic (congestive) heart failure; I13.0 Hypertensive heart and chronic kidney disease with heart failure and stage 1 through stage 4 chronic kidney disease, or unspecified chronic kidney disease; E11.65 Type 2 diabetes mellitus with hyperglycemia; E11.22 Type 2 diabetes mellitus with diabetic chronic kidney disease; N18.3 Chronic kidney disease, stage 3 (moderate); I25.5 Ischemic cardiomyopathy; R11.2 Nausea with vomiting, unspecified; Z79.4 Long term (current) use of insulin; E78.5 Hyperlipidemia, unspecified; Z95.4 Presence of other heart-valve replacement; Z95.0 Presence of cardiac pacemaker; J44.9 Chronic obstructive pulmonary disease, unspecified; I45.81 Long QT syndrome; I25.10 Atherosclerotic heart disease of native coronary artery without angina pectoris; Z95.5 Presence of coronary angioplasty implant and graft; D64.9 Anemia, unspecified; M54.5 Low back pain; E86.0 Dehydration; K64.4 Residual hemorrhoidal skin tags; I73.9 Peripheral vascular disease, unspecified; F17.210 Nicotine dependence, cigarettes, uncomplicated
CPT/HCPCS: 36415; 70450-TC; 71045-TC-FY; 71046-TC-FY; 74019-TC-FY; 76700-TC; 80048; 80053; 80061; 80076; 81003; 81015; 82150; 82728; 82803; 82962; 82977; 83036; 83540; 83550; 83605; 83690; 83721; 83735; 83880; 84080; 84443; 84484; 85025; 85610; 85730; 87040; 87086; 93005; 93010; 93306-TC; 94640; 96361; 96365; 96368; 96372; 96376; 99284-25; 99285-25; G0378; J0131; J1644; J7030; J7620

== ENCOUNTER 2017-09-18 03:32 | Inpatient (IN) | payer BC, OTHER ==
--- NOTE | 2017-09-18 04:04 | PDOC ---
History of Present Illness - General History Source: Patient, Family, Old Records Exam Limitations: No Limitations - History of Present Illness Initial Comments: 09/18/17 06:47 Patient is a 61 year old female with a significant past medical history of HTN, Dyslipidemia, CAD s/p Stent , MVR, Pacemaker, Ischemic Cardiomyopathy, systolic HF, CKD stage 3, COPD, smoker, Chronic anemia, dehydration and Hypotension, who presents to the ED with complaints of bilateral leg cramps that began yesterday. Patient reports experiencing gradual bilateral leg cramping that she states began yesterday and has been intermittent, the last episode being this morning at 2 am. She reports experiencing associated symptoms of nausea and syncope secondary to cramping episode. Patient does not rate bilateral leg cramping pain on a scale but does states the pain radiates up her legs to her thighs. As per patient's daughter, patient is mobile and active and used walker at baseline. Denies chest pain, Sob. Denies contact with sick individuals, out of state travelling. Denies trauma to affected area. Denies fevers, chills. Denies any other symptoms. Allergies: Iodine. Social history: Lives alone. No smoking. No alcohol. No illicit drugs. Surgical history: Gallbladder removal. PMD: Dr. Eelna <Santosh Harris - Last Filed: 09/18/17 06:46> <Ginette Kirby - Last Filed: 09/19/17 05:11> - General Chief Complaint: Nausea/Vomiting Stated Complaint: CRAMPS,VOMITING Time Seen by Provider: 09/18/17 04:00 Past History <Santosh Harris - Last Filed: 09/18/17 06:46> - Past Medical History Cardiac Disorders: Yes (MV replacement) COPD: Yes Diabetes: Yes HTN: Yes Hypercholesterolemia: Yes - Surgical History Cardiac Surgery: Yes (MITRAL VALVE REPLACEMET W/ STENT) - Immunization History Immunization Up to Date: Yes - Suicide/Smoking/Psychosocial Hx Smoking History: Never smoked Have you smoked in the past 12 months: No Number of Cigarettes Smoked Daily: 5 Information on smoking cessation initiated: No Hx Alcohol Use: No Drug/Substance Use Hx: No Substance Use Type: None <Ginette Kirby - Last Filed: 09/19/17 05:11> - Past Medical History Allergies/Adverse Reactions: Allergies Allergy/AdvReac Type Severity Reaction Status Date / Time iodine Allergy Verified 09/18/17 03:45 Home Medications: Ambulatory Orders Atorvastatin Ca [Lipitor] 10 mg PO HS 01/14/17 Albuterol Sulfate Inhaler - [Ventolin HFA Inhaler -] 2 puff IH Q6H PRN 30 Days # 1 inhaler MDD 4 times 08/19/17 Furosemide [Lasix -] 20 mg PO DAILY #14 tablet 08/19/17 Isosorbide Mononitrate [Imdur -] 60 mg PO DAILY tab.sr.24h 08/19/17 Melatonin 5 mg PO HS PRN tab 08/19/17 Ranitidine [Zantac -] 150 mg PO DAILY #30 tablet 08/19/17 Aspirin Coated [Ecotrin -] 81 mg PO DAILY tablet.ec 08/24/17 Carvedilol [Coreg -] 6.25 mg PO BID tablet 08/24/17 Clopidogrel Bisulfate [Plavix -] 75 mg PO DAILY tablet 08/24/17 Gabapentin [Neurontin -] 400 mg PO TID capsule 08/24/17 Insulin (Levemir) [Levemir Vial] 34 units SQ HS ml 08/24/17 Insulin Sliding Scale [Novolog Vial Sliding Scale -] 1 vial SQ ACHS units 08/24 Losartan Potassium [Cozaar -] 50 mg PO DAILY tablet 08/24/17 Salmeterol/Fluticasone [Advair 100Mcg/50Mcg -] 1 puff IH BID inhaler 08/24/17 Review of Systems - Review of Systems Able to Perform ROS?: Yes Comments:: 09/18/17 06:47 GENERAL/CONSTITUTIONAL: No fever or chills. No weakness. HEAD, EYES, EARS, NOSE AND THROAT: No change in vision. No ear pain or discharge. No sore throat. CARDIOVASCULAR: No chest pain or shortness of breath. RESPIRATORY: No cough, wheezing, or hemoptysis. GASTROINTESTINAL: +Nausea. No vomiting, diarrhea or constipation. GENITOURINARY: No dysuria, frequency, or change in urination. MUSCULOSKELETAL: +Bilateral leg cramping. No neck or back pain. SKIN: No rash NEUROLOGIC: No headache, vertigo, loss of consciousness, or change in strength/ sensation. ENDOCRINE: No increased thirst. No abnormal weight change. HEMATOLOGIC/LYMPHATIC: No anemia, easy bleeding, or history of blood clots. ALLERGIC/IMMUNOLOGIC: No hives or skin allergy. <Santosh Harris - Last Filed: 09/18/17 06:46> *Physical Exam - Vital Signs Last Vital Signs Temp Pulse Resp BP Pulse Ox 97.7 F 72 20 145/81 97 09/18/17 03:45 09/18/17 03:45 09/18/17 03:45 09/18/17 03:45 09/18/17 03:45 - Physical Exam Comments: 09/18/17 06:47 GENERAL: Awake, alert, and fully oriented, in no acute distress HEAD: No signs of trauma EYES: PERRLA, EOMI, sclera anicteric, conjunctiva clear ENT: Auricles normal inspection, hearing grossly normal, nares patent, oropharynx clear without exudates. Moist mucosa NECK: Normal ROM, supple, no lymphadenopathy, JVD, or masses LUNGS: Breath sounds equal, clear to auscultation bilaterally. No wheezes, and no crackles HEART: Regular rate and rhythm, normal S1 and S2, no murmurs, rubs or gallops ABDOMEN: +Old surgical scar. +Scaring above belly button. Soft, nontender, normoactive bowel sounds. No guarding, no rebound. No masses EXTREMITIES: +Bilateral pitting edema. +Bilateral leg weakness. Normal range of motion, No clubbing or cyanosis. No cords, erythema, or tenderness NEUROLOGICAL: Cranial nerves II through XII grossly intact. Normal speech, SKIN: Warm, Dry, normal turgor, no rashes or lesions noted. <Santosh Harris - Last Filed: 09/18/17 06:46> - Vital Signs Last Vital Signs Temp Pulse Resp BP Pulse Ox 97.7 F 72 20 145/81 97 09/18/17 03:45 09/18/17 03:45 09/18/17 03:45 09/18/17 03:45 09/18/17 03:45 <Ginette Kirby - Last Filed: 09/19/17 05:11> ED Treatment Course - LABORATORY CBC & Chemistry Diagram: 09/18/17 05:48 09/18/17 05:48 - ADDITIONAL ORDERS Additional order review: Laboratory Results 05/19/18 05/19/18 05/19/18 05:48 05:48 05:48 PT with INR 12.70 INR 1.12 PTT (Actin FS) Sodium 138 Potassium 4.3 Chloride 104 Carbon Dioxide 29 Anion Gap 5 L BUN 30 H Creatinine 2.3 H Creat Clearance w eGFR 21.70 Random Glucose 195 H Calcium 8.0 L Total Bilirubin 0.3 D AST 15 ALT 21 Alkaline Phosphatase 510 H B-Natriuretic Peptide 6207.81 H Total Protein 6.9 Albumin 2.9 L 09/18/17 05:48 PT with INR INR PTT (Actin FS) 34.6 H Sodium Potassium Chloride Carbon Dioxide Anion Gap BUN Creatinine Creat Clearance w eGFR Random Glucose Calcium Total Bilirubin AST ALT Alkaline Phosphatase B-Natriuretic Peptide Total Protein Albumin 09/18/17 05:48 RBC 2.87 L D MCV 87.1 MCHC 33.1 RDW 14.6 MPV 7.2 L D Neutrophils % 72.4 D Lymphocytes % 16.5 D Monocytes % 7.6 Eosinophils % 2.8 Basophils % 0.7 <Santosh Harris - Last Filed: 09/18/17 06:46> - LABORATORY CBC & Chemistry Diagram: 09/18/17 05:48 09/18/17 05:48 <Ginette Kirby - Last Filed: 09/19/17 05:11> Medical Decision Making - Medical Decision Making 09/18/17 06:38 PT IS ANEMIC. PTS CHEMISTRIES ARE PENDING. 09/18/17 07:01 Pt has CHF exacerbation. BNP elevated. 09/18/17 07:01 Creatinine is elevated at 2.3 Pt's Hb is low at 8.3 09/19/17 05:10 Pt will be admitted to her PMD for CHF exacerbation and peripheral edema despite correct use of her diuretics. <Ginette Kirby - Last Filed: 09/19/17 05:11> *DC/Admit/Observation/Transfer - Attestations Scribe Attestion: 09/18/17 06:48 Documentation prepared by Santosh Harris, acting as medical dosimetrist for Ginette Kirby MD. <Santosh Harris - Last Filed: 09/18/17 06:46> - Discharge Dispostion Decision to Admit order: Yes <Ginette Kirby - Last Filed: 09/19/17 05:11> Diagnosis at time of Disposition: Anemia, CHF (congestive heart failure) - Discharge Dispostion Condition at time of disposition: Guarded
[2017-09-18] MEDS ORDERED: morphine CARPU-JECT 2 MG/1 ML DISP.SYRIN IVPUSH ONE (04:49)
[2017-09-18] MEDS ORDERED: morphine SULFATE 4 MG/ML VIAL ONE (04:51)
[2017-09-18 05:59] LABS: BASO % 0.7 % (0-2.0); EOS % 2.8 % (0-4.5); HEMOGLOBIN 8.3 GM/dL (10.7-15.3); LYMPH % 16.5 % (8-40); MCH 28.9 pg (25.7-33.7); MCHC 33.1 g/dl (32.0-36.0); MEAN CELL VOLUME 87.1 fl (80-96); MEAN PLT VOLUME 7.2 fl (7.5-11.1); MONO % 7.6 % (3.8-10.2); NEUT % 72.4 % (42.8-82.8); PLATELET COUNT 331 K/MM3 (134-434); RBC 2.87 M/mm3 (3.60-5.2); RDW 14.6 % (11.6-15.6); WHITE BLOOD COUNT 8.7 K/mm3 (4.0-10.0)
[2017-09-18 06:15] LABS: INR 1.12 (0.82-1.09); PROTHROMBIN TIME (PATIENT) 12.7 SEC (9.7-13.0)
[2017-09-18 06:24] LABS: ALBUMIN 2.9 g/dl (3.4-5.0); ALK PHOS 510 U/L (45-117); ANION GAP 5 (8-16); BILIRUBIN,TOTAL 0.3 mg/dL (0.2-1.0); BLOOD UREA NITROGEN 30 mg/dL (7-18); CHLORIDE 104 mmol/L (98-107); CO2 29 mmol/L (21-32); CREATININE 2.3 mg/dL (0.55-1.02); GLUCOSE,RANDOM 195 mg/dL (74-106); POTASSIUM 4.3 mmol/L (3.5-5.1); SGOT/AST 15 U/L (15-37); SGPT/ALT 21 U/L (12-78); SODIUM 138 mmol/L (136-145); TOT PROT 6.9 g/dl (6.4-8.2)
[2017-09-18 12:28] VITALS: BMI 36.0
[2017-09-18] MEDS ORDERED: ALBUTEROL SO4 18 GM HFA INHALER IH PRN (13:20)
--- NOTE | 2017-09-18 13:25 | HP ---
DATE OF ADMISSION: DATE OF DICTATION: 09/18/2017 HISTORY OF PRESENT ILLNESS: This is a 61-year-old female known to have multiple problems. Last admission was here with diarrhea, hypoglycemia. Known to have CHF, status post mitral valve replacement and stent placement. On multiple medications. Early this morning she came to the ER after having leg cramps and when she was standing up she fell on the bed. In the ER the evaluating doctor thought that she was in CHF so got admitted. This morning when I see patient is comfortable lying in the bed. PHYSICAL EXAMINATION:Vital Signs: Blood pressure is 150/78, pulse 74, respirations 22, temperature 98. HEENT: Unremarkable. Neck: Supple. No JVD. Lungs: Clear. Heart: S1, S2 normal. No S3, S4. Abdomen: Soft. Extremities: Legs: No edema. Right leg peripheral pulses are not felt. Vascular study was done which was negative on the legs. Chest x-ray not done. LABORATORY REPORTS: WBC 8.7, hemoglobin 8.3, platelet 331. Chemistry: Sodium 138, potassium 4.3, chloride 104, CO2 29, BUN 30, creatinine 2.3. B-natriuretic peptide 6207. Albumin is 2.9. IMPRESSION: 1. Exacerbation of congestive heart failure. 2. Leg cramps. 3. Renal insufficiency. 4. Peripheral vascular disease. PLAN: Admit to regular floor. Continue present medications and will do Lasix IV and send her back home tomorrow. MERYL HYDE M.D. [id number]
[2017-09-18] MEDS ORDERED: ACETAMINOPHEN WITH CODEINE 300MG/30MG TABLET PO PRN (14:54)
[2017-09-18] MEDS: FUROSEMIDE 40 MG TABLET (FP) PO SCH (14:58)
[2017-09-18] MEDS: GABAPENTIN 400 MG CAPSULE (FP) PO SCH ×2 (14:58→22:11)
[2017-09-18] MEDS: LOSARTAN POTASSIUM 50 MG TABLET (FP) PO SCH (14:58)
[2017-09-18] MEDS: ISOSORBIDE MONONITRATE 60 MG TAB.SR.24H (FP) PO SCH (14:58)
[2017-09-18] MEDS: CLOPIDOGREL BISULFATE 75 MG TABLET (FP) PO SCH (14:59)
[2017-09-18] MEDS: INSULIN SLIDING SCALE (NOVOLOG) 1 VIAL SQ SCH ×2 (17:07→22:13)
[2017-09-18] MEDS ORDERED: INSULIN (LEVEMIR) 100 UNITS/ML UNITS SQ SCH (22:00)
[2017-09-18] MEDS ORDERED: ATORVASTATIN CA 10 MG TABLET (FP) PO SCH (22:00)
[2017-09-18] MEDS ORDERED: PT OWN MED DRAWER 7, Y5N ONE (22:09)
[2017-09-18] MEDS: CARVEDILOL 6.25 MG TABLET (FP) PO SCH (22:11)
[2017-09-18] MEDS: RANITIDINE HCL 150 MG TABLET (FP) PO SCH (22:11)
[2017-09-18] MEDS: FLUTICASONE/SALMETEROL 100 MCG/50 MCG DISKUS IH SCH (23:03)
[2017-09-19] MEDS: INSULIN SLIDING SCALE (NOVOLOG) 1 VIAL SQ SCH ×2 (06:11→11:28)
[2017-09-19] MEDS: GABAPENTIN 400 MG CAPSULE (FP) PO SCH ×2 (06:11→14:01)
[2017-09-19] MEDS ORDERED: PT OWN MED DRAWER 7, Y5N ONE (09:39)
[2017-09-19 09:43] VITALS: BP 116/62; PULSE 74; TEMP 98
[2017-09-19] MEDS: RANITIDINE HCL 150 MG TABLET (FP) PO SCH (09:46)
[2017-09-19] MEDS: LOSARTAN POTASSIUM 50 MG TABLET (FP) PO SCH (09:46)
[2017-09-19] MEDS: FUROSEMIDE 40 MG TABLET (FP) PO SCH (09:46)
[2017-09-19] MEDS: ISOSORBIDE MONONITRATE 60 MG TAB.SR.24H (FP) PO SCH (09:46)
[2017-09-19] MEDS: CARVEDILOL 6.25 MG TABLET (FP) PO SCH (09:46)
[2017-09-19] MEDS: FLUTICASONE/SALMETEROL 100 MCG/50 MCG DISKUS IH SCH (09:46)
[2017-09-19] MEDS: CLOPIDOGREL BISULFATE 75 MG TABLET (FP) PO SCH (09:46)
[2017-09-19] MEDS ORDERED: ASPIRIN COATED 81 MG TABLET.EC PO SCH (10:00)
--- NOTE | 2017-09-19 13:03 | DS ---
Physical Examination Vital Signs: Vital Signs Temperature 98.0 F 09/19/17 09:43 Pulse Rate 74 09/19/17 09:43 Respiratory Rate 18 09/19/17 09:43 Blood Pressure 116/62 09/19/17 09:43 O2 Sat by Pulse Oximetry (%) 98 09/18/17 21:00 Findings/Remarks: Feels better Constitutional: Yes: No Distress Eyes: Yes: WNL HENT: Yes: WNL Neck: Yes: WNL Cardiovascular: Yes: Regular Rate and Rhythm Respiratory: Yes: WNL Gastrointestinal: Yes: Normal Bowel Sounds Renal/: Yes: WNL Musculoskeletal: Yes: WNL Extremities: Yes: WNL Peripheral Pulses WNL: Yes Neurological: Yes: Alert ...Motor Strength: WNL Psychiatric: Yes: Alert Labs: CBC, BMP 09/18/17 05:48 09/18/17 05:48 Discharge Summary Reason For Visit: ANEMIA CHF Current Active Problems Anemia (Acute) CHF (congestive heart failure) (Acute) Condition: Guarded - Instructions Referrals: Channing Elena MD [Primary Care Provider] - - Home Medications Comprehensive Discharge Medication List: Ambulatory Orders Atorvastatin Ca [Lipitor] 10 mg PO HS 01/14/17 Albuterol Sulfate Inhaler - [Ventolin HFA Inhaler -] 2 puff IH Q6H PRN 30 Days # 1 inhaler MDD 4 times 08/19/17 Furosemide [Lasix -] 20 mg PO DAILY #14 tablet 08/19/17 Isosorbide Mononitrate [Imdur -] 60 mg PO DAILY tab.sr.24h 08/19/17 Melatonin 5 mg PO HS PRN tab 08/19/17 Ranitidine [Zantac -] 150 mg PO DAILY #30 tablet 08/19/17 Aspirin Coated [Ecotrin -] 81 mg PO DAILY tablet.ec 08/24/17 Carvedilol [Coreg -] 6.25 mg PO BID tablet 08/24/17 Clopidogrel Bisulfate [Plavix -] 75 mg PO DAILY tablet 08/24/17 Gabapentin [Neurontin -] 400 mg PO TID capsule 08/24/17 Insulin (Levemir) [Levemir Vial] 34 units SQ HS ml 08/24/17 Insulin Sliding Scale [Novolog Vial Sliding Scale -] 1 vial SQ ACHS units 08/24 Losartan Potassium [Cozaar -] 50 mg PO DAILY tablet 08/24/17 Salmeterol/Fluticasone [Advair 100Mcg/50Mcg -] 1 puff IH BID inhaler 08/24/17
--- NOTE | 2017-09-19 13:57 | CONS ---
DATE OF CONSULTATION: 09/19/2017 CONSULTATION REQUESTED BY: Channing Elena MD CHIEF COMPLAINT: 1. Recurring and severe leg cramps. 2. Localized chest pain. 3. History of nausea. The patient is a 61-year-old female who has had multiple admissions since her moving from [facility]. She has coronary artery disease; history of myocardial infarction; history of multivessel stenting (4); mitral valvular disease, status post mitral valve repair, apparently was incomplete, according to her daughter; history of dyslipidemia; chronic obstructive pulmonary disease; chronic anemia; chronic bronchitis/COPD; tobacco abuse; peripheral arterial disease; diabetes mellitus. The patient was admitted with recurring lower extremity cramps, which appear to be chronic in nature, but had severe episode of cramps associated with localized left parasternal chest pain, nausea, and retching. The patient recently noticed dyspnea on exertion walking during a windy and cold day. There is no history of palpitations, lightheadedness, recent dizziness, or syncope. The patient complains of fatigue and increased somnolence. There is history of snoring, according to her daughter, which, at times, is severe. Patient tends to fall asleep easily while sitting in a chair or watching television. There is no history of paroxysmal nocturnal dyspnea or orthopnea. The patient also has a permanent pacemaker. PAST HISTORY: As mentioned in the history of present illness. SURGICAL HISTORY: 1. Status post open heart surgery for mitral valve repair. 2. Status post multivessel PCI/stenting. 3. Status post peripheral angiography on the right lower extremity. No known history of stenting. 4. Status post permanent pacemaker. 5. Status post cholecystectomy. 6. Status post surgery involving the left eye, type uncertain. SOCIAL HISTORY: She is single, was never , has 2 sons and 2 daughters. She started smoking at the age of 18 and used to smoke approximately 1 pack of cigarettes per day. Currently, she says she is smoking less than 5 cigarettes. There is no history of alcohol use or drugs. Drinks 2 to 3 cups of coffee. FAMILY HISTORY: Father at the age of 57 related to cerebrovascular accident. He was a diabetic, had hypertension and ethanol abuse. Mother at age 28 related to complications of ovarian carcinoma. Has 2 sisters and a brother. The older sister at age 53 of myocardial infarction. The brother at age 50 of a myocardial infarction and he was also a diabetic. The sister who is alive has hypertension and is a diabetic. ALLERGIES: IV CONTRAST. CURRENT MEDICATIONS: 1. Cozaar 50 mg p.o. daily. 2. Advair 1 inhalation b.i.d. 3. Neurontin 400 mg t.i.d. 4. Ventolin 2 inhalations 4 times a day p.r.n. 5. Carvedilol 6.25 mg p.o. t.i.d. 6. Zantac 150 mg p.o. b.i.d. 7. Lipitor 10 mg p.o. daily. 8. NovoLog insulin by a sliding scale. 9. Levemir insulin 34 units subcutaneously daily at bedtime. 10. Lasix 40 mg p.o. daily. 11. Isosorbide mononitrate 60 mg p.o. daily. 12. Aspirin 81 mg p.o. daily. 13. Clopidogrel 75 mg p.o. daily. 14. Acetaminophen/codeine (Tylenol No. 3) 2 tablets p.o. q.6 hours p.r.n. for pain. REVIEW OF SYSTEMS: Constitutional: No history of chills, fever, or night sweats. No history of unintentional weight loss. HEENT: No history of diplopia reported. No history of epistaxis, hoarseness, tinnitus, or deafness. Cardiovascular: See history of present illness. Respiratory: History of chronic dyspnea, COPD, bronchitis. No history of hemoptysis. History of intermittent cough, at times associated with expectoration. Gastrointestinal: History of gastroesophageal reflux. History of recurring nausea and retching. No history of recent vomiting. No history of abdominal pain or discomfort. No history of change in bowel habits. Endocrine: See history of present illness. Genitourinary: See history of present illness. Musculoskeletal: History of arthralgia/arthritis. Hematologic/Lymphatic: History of chronic anemia. No history of bleeding or ecchymosis. No history of lymphadenopathy. PHYSICAL EXAMINATION: General: A 61-year-old obese female who was in no acute distress. No pallor, cyanosis, clubbing, or jaundice. Vital Signs: Blood pressure 116/62 mmHg, pulse 74 beats/min and regular, temperature 98 degrees Fahrenheit, respirations 18/min, weight is not available. Neck: Supple. No jugular venous distention. Carotids were 2+, upstrokes were normal. There was a radiational murmur, especially in the right carotid. There was faint radiation versus faint bruit over the left carotid. No thyromegaly was present. Heart: No heaves or thrills. S1 and S2 were normal. Ejection systolic murmur grade 2/6 was heard at the 2nd right intercostal space and was also heard along the left sternal border and left intercostal space. No diastolic murmur or gallops were heard. Lungs: Decreased breath sounds at the bases, but clear. Chest: Normal AP diameter. Expansion was symmetrical. Abdomen: Obese, soft, and nontender. No hepatosplenomegaly or palpable masses were appreciated. Extremities: No calf tenderness or dependent edema. Femoral pulses were 1+ to 2+. Dorsalis pedis and posterior tibial pulses could not be palpated. CBC, September 18: WBC count 8700, hemoglobin 8.3 g/dL, platelet count 331,000. Chemistry, September 18: Sodium 138, potassium 4.3, chloride 104, CO2 of 29 mmol/L, BUN 30, creatinine 2.3 mg/dL, random glucose was 195 mg/dL, magnesium was not available, alkaline phosphatase was elevated at 510. BNP was elevated at 6207.81. There was a reversal of ratio. Urinalysis revealed 3+ protein, 3+ glucose, 1+ blood, 9 RBCs, hyaline casts. Vascular study: No evidence of acute DVT. X-ray chest is not available. ECG is not available. IMPRESSION: 1. Bilateral nocturnal leg cramps, etiology: A. Secondary to electrolyte imbalance. B. Related to diuretics. C. Peripheral arterial disease. 2. Coronary artery disease, status post myocardial infarction, status post multivessel percutaneous coronary intervention, angina pectoris. 3. Diabetic nephropathy. 4. Anemia, most likely related to chronic kidney disease. 5. Hypertension, hypertensive cardiovascular disease. 6. History of chronic bronchitis/chronic obstructive pulmonary disease. 7. Peripheral arterial disease. 8. Left ventricular systolic dysfunction. 9. Left ventricular systolic failure. 10. Mitral valvular disease, status post mitral valve repair. 11. Status post permanent pacemaker. 12. Tobacco abuse. 13. Obesity. 14. Dyslipidemia. 15. Clinical presentation compatible with obstructive sleep apnea syndrome. RECOMMENDATIONS: 1. Cessation of smoking is of paramount importance. This was again discussed with patient and, also, her daughter. 2. Sleep study. 3. Serum magnesium level. 4. Patient should carry sublingual nitroglycerin 0.4 mg and use as directed. 5. Weight reduction. 6. Permanent pacemaker followup and interrogation is necessary. 7. Obtain records from her previous physician regarding her dietary restrictions and weight reduction. 8. Evaluation of chronic anemia. PROGNOSIS: Guarded. Thank you for your referral. CARLOS CASTILLO M.D. [id number]
--- NOTE | 2017-09-21 00:37 | EKG ---
Test Reason : Blood Pressure : / mmHG Vent. Rate : 072 BPM Atrial Rate : 072 BPM P-R Int : 178 ms QRS Dur : 110 ms QT Int : 484 ms P-R-T Axes : 048 026 113 degrees QTc Int : 529 ms NORMAL SINUS RHYTHM NONSPECIFIC T WAVE ABNORMALITY ABNORMAL ECG WHEN COMPARED WITH ECG OF 21-AUG-2017 13:06, T WAVE VARIATION Confirmed by JOSS HERNANDEZ MD [id number]) on 09/21/2017 12:37:02 AM Referred By: Confirmed By:JOSS HERNANDEZ MD
== END 2017-09-19 14:45 | disposition home or self-care (01) | DRG 291 ==
LOC: JER 03:32 → JERBED 07:12 → J6S 11:37
PROVIDERS: ADMIT Internal Medicine; ATTEND Internal Medicine
DX: I13.0 Hypertensive heart and chronic kidney disease with heart failure and stage 1 through stage 4 chronic kidney disease, or unspecified chronic kidney disease (principal); I50.23 Acute on chronic systolic (congestive) heart failure; D64.9 Anemia, unspecified; N18.3 Chronic kidney disease, stage 3 (moderate); E78.5 Hyperlipidemia, unspecified; I25.10 Atherosclerotic heart disease of native coronary artery without angina pectoris; Z98.61 Coronary angioplasty status; I25.5 Ischemic cardiomyopathy; Z95.0 Presence of cardiac pacemaker; I73.9 Peripheral vascular disease, unspecified; E13.21 Other specified diabetes mellitus with diabetic nephropathy; E13.51 Other specified diabetes mellitus with diabetic peripheral angiopathy without gangrene; Z68.37 Body mass index [BMI] 37.0-37.9, adult; E66.9 Obesity, unspecified; R07.9 Chest pain, unspecified
CPT/HCPCS: 36415; 80053; 82962; 83880; 85025; 85610; 85730; 93005; 93010; 93970-TC; 99285-25

== ENCOUNTER 2017-10-10 09:45 | Inpatient (IN) | payer BC, OTHER ==
[2017-10-10 09:56] VITALS: BMI 35.2
[2017-10-10] MEDS ORDERED: ASPIRIN 325 MG TABLET PO ONE (10:03)
--- NOTE | 2017-10-10 10:24 | PDOC ---
History of Present Illness - General History Source: Patient, EMS Exam Limitations: No Limitations <Amanda Pedraza - Last Filed: 10/10/17 12:55> <Lea Vaughn - Last Filed: 10/10/17 13:14> - General Chief Complaint: Shortness of Breath Stated Complaint: DIFFICULTY BREATHING Time Seen by Provider: 10/10/17 09:54 - History of Present Illness Initial Comments: This is a 62 YOF with h/o CHF, CAD (multiple NC), valve replacement (on Plavix) , COPD, asthma, long-time smoker (quit recently), IDDM, and HTN who p/w SOB for the past 2 days and chest pain onset this morning. She went on a 4-hour road trip to [facility] last weekend (9 days ago) and returned 7 days ago and has since been feeling "off" but had the onset of SOB, wheezing, cough, difficulty laying down flat, and BLE swelling two days ago despite taking her normal Lasix. She took her home inhalers without relief and her respiratory symptoms have been worsening since then. She additionally had an onset this morning of lower left-sided non-radiating 5/10 chest pain which has been fluctuating since then. She has also been having mild nausea, but she denies fever, chills, vomiting, diarrhea, constipation, rash, headache, lightheadedness/dizziness, or other symptoms. She takes 20 mg/day Lasix and this was decreased from her prior 40 mg/day dose about a month ago. (Amanda Pedraza) Past History - Past Medical History Cardiac Disorders: Yes (MV replacement) COPD: Yes Diabetes: Yes HTN: Yes Hypercholesterolemia: Yes - Surgical History Cardiac Surgery: Yes (MITRAL VALVE REPLACEMET W/ STENT) - Immunization History Immunization Up to Date: Yes - Suicide/Smoking/Psychosocial Hx Smoking History: Former smoker Have you smoked in the past 12 months: No Number of Cigarettes Smoked Daily: 5 Information on smoking cessation initiated: No 'Breaking Loose' booklet given: 09/18/17 Hx Alcohol Use: No Drug/Substance Use Hx: No Substance Use Type: None Hx Substance Use Treatment: No <Amanda Pedraza - Last Filed: 10/10/17 12:55> <Lea Vaughn - Last Filed: 10/10/17 13:14> - Past Medical History Allergies/Adverse Reactions: Allergies Allergy/AdvReac Type Severity Reaction Status Date / Time iodine Allergy Verified 10/10/17 09:49 Home Medications: Ambulatory Orders Albuterol Sulfate Inhaler - [Ventolin HFA Inhaler -] 2 puff IH Q6H PRN 30 Days # 1 inhaler MDD 4 times 08/19/17 Isosorbide Mononitrate [Imdur -] 60 mg PO DAILY tab.sr.24h 08/19/17 Melatonin 5 mg PO HS PRN tab 08/19/17 Ranitidine [Zantac -] 150 mg PO DAILY #30 tablet 08/19/17 Aspirin Coated [Ecotrin -] 81 mg PO DAILY tablet.ec 08/24/17 Carvedilol [Coreg -] 6.25 mg PO BID tablet 08/24/17 Clopidogrel Bisulfate [Plavix -] 75 mg PO DAILY tablet 08/24/17 Gabapentin [Neurontin -] 400 mg PO TID capsule 08/24/17 Insulin (Levemir) [Levemir Vial] 34 units SQ HS ml 08/24/17 Insulin Sliding Scale [Novolog Vial Sliding Scale -] 1 vial SQ ACHS units 08/24 Losartan Potassium [Cozaar -] 50 mg PO DAILY tablet 08/24/17 Salmeterol/Fluticasone [Advair 100Mcg/50Mcg -] 1 puff IH BID inhaler 08/24/17 Atorvastatin Ca [Lipitor] 10 mg PO HS tablet 09/19/17 Furosemide [Lasix -] 20 mg PO DAILY 10/10/17 Cardiac Specific PMH - Complaint Specific PMHX Pacemaker: Yes <Amanda Pedraza - Last Filed: 10/10/17 12:55> Review of Systems - Review of Systems Able to Perform ROS?: Yes Constitutional: No: Chills, Fever, Unexplained wgt Loss HEENTM: No: Nose Congestion, Throat Pain Respiratory: Yes: Cough, Orthopnea, Shortness of Breath, SOB with Exertion, Wheezing Cardiac (ROS): Yes: Chest Pain, Edema. No: Palpitations ABD/GI: No: Constipated, Diarrhea, Nausea, Vomiting : No: Burning, Dysuria Musculoskeletal: No: Back Pain, Neck Pain Integumentary: No: Bruising, Rash Neurological: No: Headache, Numbness, Tingling, Weakness, Dizziness Endocrine: No: Unexplained Weight Gain, Unexplained Weight Loss <Amanda Pedraza Last Filed: 10/10/17 12:55> *Physical Exam - Physical Exam General Appearance: Yes: Nourished, Other (nontoxic but ). No: Apparent Distress HEENT: positive: EOMI, Normal Voice, Hearing Grossly Normal. negative: Scleral Icterus (R), Scleral Icterus (L), Nasal Congestion Neck: positive: Trachea midline, Supple. negative: Tender, Rigid Respiratory/Chest: positive: Respiratory Distress, Accessory Muscle Use, Labored Respiration, Rapid RR, Decreased Breath Sounds, Crackles (faint). negative: Rhonchi, Stridor, Wheezing Cardiovascular: positive: Regular Rhythm, Regular Rate, S1, S2, JVD, Murmur (1/ 6 systolic). negative: Edema Gastrointestinal/Abdominal: positive: Normal Bowel Sounds, Soft. negative: Tender, Organomegaly, Pulsatile Mass, Guarding Musculoskeletal: positive: Normal Inspection. negative: Decreased Range of Motion, Vertebral Tenderness Extremity: positive: Normal Capillary Refill, Normal Inspection, Normal Range of Motion. negative: Tender, Cyanosis, Pedal Edema Integumentary: positive: Normal Color, Dry, Warm. 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 NML intact (grossly), Fully Oriented, Alert, Normal Mood/Affect, Normal Response, Motor Strength 5/5 <Amanda Pedraza Last Filed: 10/10/17 12:55> - Vital Signs Last Vital Signs Temp Pulse Resp BP Pulse Ox 98.2 F 84 30 H 189/113 97 10/10/17 09:54 10/10/17 13:05 10/10/17 13:05 10/10/17 13:05 10/10/17 13:05 Heart Score/ECG Review - History History: Moderately suspicious - Electrocardiogram EKG: Normal (per prior EKG) - Age Age: 45-65 - Risk Factors Risk Factors Heart Score: Yes Hx Hypercholesterolemia, Yes Hx Hypertension, Yes Hx Diabetes, Yes Smoking History, Yes Hx Obesity Based on the list above the patient has:: >/=3 risk factors or Hx atherosclerotic disease - Troponin Troponin: </= normal limit - Score Heart Score - Total: 4 <Amanda Pedraza Last Filed: 10/10/17 12:55> <Lea Vaughn - Last Filed: 10/10/17 13:14> #1 NSR, rate of 86, LAx=044, old changes are redemonstrated: Q waves in III (Amanda Pedraza) ED Treatment Course - LABORATORY CBC & Chemistry Diagram: 10/10/17 10:30 10/10/17 11:11 <Amanda Pedraza - Last Filed: 10/10/17 12:55> - LABORATORY CBC & Chemistry Diagram: 10/10/17 10:30 10/10/17 11:11 <Lea Vaughn - Last Filed: 10/10/17 13:14> - ADDITIONAL ORDERS Additional order review: Laboratory Results 10/10/17 10/10/17 10/10/17 11:39 11:14 11:11 PT with INR INR PTT (Actin FS) Anticoagulation Therapy ABG pH ABG pCO2 at Pt Temp ABG pO2 at Pt Temp ABG HCO3 ABG O2 Sat (Measured) ABG O2 Content ABG Base Excess Carboxyhemoglobin Methemoglobin O2 Delivery Device Oxygen Flow Rate Vent Mode Vent Rate Mechanical Rate Pressure Support Vent Sodium 133 L Potassium 5.3 H Chloride 106 Carbon Dioxide 17 L Anion Gap 10 BUN 26 H Creatinine 1.8 H Creat Clearance w eGFR 28.70 Random Glucose 520 H* Calcium 8.7 Magnesium 2.2 Total Bilirubin 0.6 AST 16 ALT 23 Alkaline Phosphatase 481 H Creatine Kinase 180 Creatine Kinase Index 2.5 CK-MB (CK-2) 4.56 H Troponin I < 0.02 B-Natriuretic Peptide 11104.72 H Total Protein 7.6 Albumin 3.0 L Lipase 130 Urine Color Straw Urine Appearance Clear Urine pH 6.0 Ur Specific [place] 1.015 Urine Protein 3+ H Urine Glucose (UA) 3+ H Urine Ketones Trace H Urine Blood 1+ H Urine Nitrite Negative Urine Bilirubin Negative Urine Urobilinogen Negative Ur Leukocyte Esterase Negative Urine WBC (Auto) 1 Urine RBC (Auto) 2 Ur Epithelial Cells Rare Urine Yeast Rare Acetone, Qual Trace H 10/10/17 10/10/17 10/10/17 11:11 10:39 10:39 PT with INR 13.30 H INR 1.18 H PTT (Actin FS) 29.9 Anticoagulation Therapy No Result Required. ABG pH 7.38 ABG pCO2 at Pt Temp 25.5 L ABG pO2 at Pt Temp 74.7 L ABG HCO3 14.6 L* ABG O2 Sat (Measured) 96.3 ABG O2 Content 10.7 L ABG Base Excess -9.2 L Carboxyhemoglobin 3.0 H Methemoglobin 1.5 O2 Delivery Device No Result Required. Oxygen Flow Rate No Result Required. Vent Mode No Result Required. Vent Rate No Result Required. Mechanical Rate No Result Required. Pressure Support Vent No Result Required. Sodium Potassium Chloride Carbon Dioxide Anion Gap BUN Creatinine Creat Clearance w eGFR Random Glucose Calcium Magnesium Total Bilirubin AST ALT Alkaline Phosphatase Creatine Kinase Creatine Kinase Index CK-MB (CK-2) Troponin I B-Natriuretic Peptide Total Protein Albumin Lipase Urine Color Urine Appearance Urine pH Ur Specific [place] Urine Protein Urine Glucose (UA) Urine Ketones Urine Blood Urine Nitrite Urine Bilirubin Urine Urobilinogen Ur Leukocyte Esterase Urine WBC (Auto) Urine RBC (Auto) Ur Epithelial Cells Urine Yeast Acetone, Qual 10/10/17 10/10/17 10:30 10:30 PT with INR Cancelled INR Cancelled PTT (Actin FS) Cancelled Anticoagulation Therapy ABG pH ABG pCO2 at Pt Temp ABG pO2 at Pt Temp ABG HCO3 ABG O2 Sat (Measured) ABG O2 Content ABG Base Excess Carboxyhemoglobin Methemoglobin O2 Delivery Device Oxygen Flow Rate Vent Mode Vent Rate Mechanical Rate Pressure Support Vent Sodium 132 L Potassium 5.3 H Chloride 106 Carbon Dioxide 13 L Anion Gap 13 BUN 26 H Creatinine 1.8 H Creat Clearance w eGFR 28.70 Random Glucose 538 H* Calcium 8.6 Magnesium 2.2 Total Bilirubin 0.6 D AST 18 ALT 24 Alkaline Phosphatase 475 H Creatine Kinase 184 Creatine Kinase Index 2.7 CK-MB (CK-2) 5.01 H Troponin I < 0.02 B-Natriuretic Peptide 72338.37 H Total Protein 7.4 Albumin 3.0 L Lipase 134 Urine Color Urine Appearance Urine pH Ur Specific [place] Urine Protein Urine Glucose (UA) Urine Ketones Urine Blood Urine Nitrite Urine Bilirubin Urine Urobilinogen Ur Leukocyte Esterase Urine WBC (Auto) Urine RBC (Auto) Ur Epithelial Cells Urine Yeast Acetone, Qual 10/10/17 10:30 RBC 2.73 L MCV 87.6 MCHC 32.4 RDW 14.6 MPV 7.6 Neutrophils % 74.1 Lymphocytes % 14.7 Monocytes % 5.9 Eosinophils % 4.3 Basophils % 1.0 - Medications Given in the ED: ED Medications Discontinued Medications Generic Name Dose Route Start Last Admin Trade Name Dulce PRN Reason Stop Dose Admin Aspirin 325 mg 10/10/17 10:03 10/10/17 10:47 Asa - PO 10/10/17 10:04 325 mg ONCE ONE Administration Furosemide 40 mg 10/10/17 11:50 10/10/17 12:02 Lasix Injection - IVPUSH 10/10/17 11:51 40 mg ONCE ONE Administration Insulin Human Regular 5 units 10/10/17 11:49 10/10/17 12:02 Novolin R Vial *For Ivpush Or Iv Drip Only* IVPUSH 10/10/17 11:50 5 unit ONCE ONE Administration Medical Decision Making <Amanda Pedraza - Last Filed: 10/10/17 12:55> <Xavier Vaughnmadiesandy - Last Filed: 10/10/17 13:14> - Medical Decision Making Adult female Pt p/w chest pain. Initial Vital Signs Pulse Ox 100 10/10/17 09:50 Exam: obese, tachypneic, uncomfortable, poor air movement, no extremity edema DDX IBNLT: ACS, PE, PNA/bronchitis, CHF or COPD or asthma exacerbation, pericarditis, tamponade, aortic dissection, AAA, PTX, esophageal tear, esophagitis (e.g. pill, infectious), esophageal stricture, esophageal FB, gastritis, PUD, pancreatitis, cholecystitis, cholangitis, colitis, bowel perforation, pleurisy, pleuritis, MVP, pulmonary HTN, musculoskeletal, panic/ anxiety, etc. W/U ordered: CBCD CMP Mg Phos Lipase Troponin CK CKMB Coags T&S Blood gas UA UCx EKG CXR ABG. TX ordered: monitor, ASA 324, NTG drip, O2 via NC if needed EKG: NSR, rate of 86, OOv=683, old changes are redemonstrated: Q waves in III. CXR: pulmonary vascular congestion, bibasilar consolidations/effusions, cardiomegaly, pacer in place. Laboratory Tests 10/10/17 10/10/17 10/10/17 10:30 10:30 10:30 WBC 10.2 H RBC 2.73 L Hgb 7.8 L Hct 23.9 L MCV 87.6 MCH 28.4 MCHC 32.4 RDW 14.6 Plt Count 322 MPV 7.6 Absolute Neuts (auto) 7.6 Neutrophils % 74.1 Lymphocytes % 14.7 Monocytes % 5.9 Eosinophils % 4.3 Basophils % 1.0 Nucleated RBC % 0 PT with INR Cancelled INR Cancelled PTT (Actin FS) Cancelled Anticoagulation Therapy ABG pH ABG pCO2 at Pt Temp ABG pO2 at Pt Temp ABG HCO3 ABG O2 Sat (Measured) ABG O2 Content ABG Base Excess Carboxyhemoglobin Methemoglobin O2 Delivery Device Oxygen Flow Rate Vent Mode Vent Rate Mechanical Rate Pressure Support Vent Sodium 132 L Potassium 5.3 H Chloride 106 Carbon Dioxide 13 L Anion Gap 13 BUN 26 H Creatinine 1.8 H Creat Clearance w eGFR 28.70 Random Glucose 538 H* Calcium 8.6 Magnesium 2.2 Total Bilirubin 0.6 D AST 18 ALT 24 Alkaline Phosphatase 475 H Creatine Kinase 184 Creatine Kinase Index 2.7 CK-MB (CK-2) 5.01 H Troponin I < 0.02 B-Natriuretic Peptide 15869.37 H Total Protein 7.4 Albumin 3.0 L Lipase 134 Urine Color Urine Appearance Urine pH Ur Specific [place] Urine Protein Urine Glucose (UA) Urine Ketones Urine Blood Urine Nitrite Urine Bilirubin Urine Urobilinogen Ur Leukocyte Esterase Urine WBC (Auto) Urine RBC (Auto) Ur Epithelial Cells Urine Yeast Acetone, Qual 10/10/17 10/10/17 10/10/17 10:39 10:39 11:11 WBC RBC Hgb Hct MCV MCH MCHC RDW Plt Count MPV Absolute Neuts (auto) Neutrophils % Lymphocytes % Monocytes % Eosinophils % Basophils % Nucleated RBC % PT with INR 13.30 H INR 1.18 H PTT (Actin FS) 29.9 Anticoagulation Therapy No Result Required. ABG pH 7.38 ABG pCO2 at Pt Temp 25.5 L ABG pO2 at Pt Temp 74.7 L ABG HCO3 14.6 L* ABG O2 Sat (Measured) 96.3 ABG O2 Content 10.7 L ABG Base Excess -9.2 L Carboxyhemoglobin 3.0 H Methemoglobin 1.5 O2 Delivery Device No Result Required. Oxygen Flow Rate No Result Required. Vent Mode No Result Required. Vent Rate No Result Required. Mechanical Rate No Result Required. Pressure Support Vent No Result Required. Sodium Potassium Chloride Carbon Dioxide Anion Gap BUN Creatinine Creat Clearance w eGFR Random Glucose Calcium Magnesium Total Bilirubin AST ALT Alkaline Phosphatase Creatine Kinase Creatine Kinase Index CK-MB (CK-2) Troponin I B-Natriuretic Peptide Total Protein Albumin Lipase Urine Color Urine Appearance Urine pH Ur Specific [place] Urine Protein Urine Glucose (UA) Urine Ketones Urine Blood Urine Nitrite Urine Bilirubin Urine Urobilinogen Ur Leukocyte Esterase Urine WBC (Auto) Urine RBC (Auto) Ur Epithelial Cells Urine Yeast Acetone, Qual 10/10/17 10/10/17 10/10/17 11:11 11:14 11:39 WBC RBC Hgb Hct MCV MCH MCHC RDW Plt Count MPV Absolute Neuts (auto) Neutrophils % Lymphocytes % Monocytes % Eosinophils % Basophils % Nucleated RBC % PT with INR INR PTT (Actin FS) Anticoagulation Therapy ABG pH ABG pCO2 at Pt Temp ABG pO2 at Pt Temp ABG HCO3 ABG O2 Sat (Measured) ABG O2 Content ABG Base Excess Carboxyhemoglobin Methemoglobin O2 Delivery Device Oxygen Flow Rate Vent Mode Vent Rate Mechanical Rate Pressure Support Vent Sodium 133 L Potassium 5.3 H Chloride 106 Carbon Dioxide 17 L Anion Gap 10 BUN 26 H Creatinine 1.8 H Creat Clearance w eGFR 28.70 Random Glucose 520 H* Calcium 8.7 Magnesium 2.2 Total Bilirubin 0.6 AST 16 ALT 23 Alkaline Phosphatase 481 H Creatine Kinase 180 Creatine Kinase Index 2.5 CK-MB (CK-2) 4.56 H Troponin I < 0.02 B-Natriuretic Peptide 25850.72 H Total Protein 7.6 Albumin 3.0 L Lipase 130 Urine Color Straw Urine Appearance Clear Urine pH 6.0 Ur Specific [place] 1.015 Urine Protein 3+ H Urine Glucose (UA) 3+ H Urine Ketones Trace H Urine Blood 1+ H Urine Nitrite Negative Urine Bilirubin Negative Urine Urobilinogen Negative Ur Leukocyte Esterase Negative Urine WBC (Auto) 1 Urine RBC (Auto) 2 Ur Epithelial Cells Rare Urine Yeast Rare Acetone, Qual Trace H No EKG changes concerning for hyperkalemia. No elevation in anion gap so unlikely DKA; only trace ketones. H/H showing anemia worse than her prior values here at [facility]. This may be causing or contributing to her sxs. Will order 1 U pRBC (no more will be ordered currently as Pt is volume overloaded/pulmonary edema). 40 mg Lasix given (Pt takes 20 mg PO at home but was on 40 mg until last month). HEART score: 4 Vital Signs Temperature 98.2 F 10/10/17 09:54 Pulse Rate 84 10/10/17 13:05 Respiratory Rate 30 H 10/10/17 13:05 Blood Pressure 189/113 10/10/17 13:05 O2 Sat by Pulse Oximetry (%) 97 10/10/17 13:05 Reassessment: remains tachypneic, does not want BP is improving on NTG drip The Pt is unsafe for discharge at this time. They require further hospital observation, workup, and treatment. Spoke with Dr. Elena; in agreement Pt to be admitted to to: Telemetry IP Decision to Admit order placed to Dr. Elena Consult order placed to cardiology: Dr. Nichols. (Amanda Pedraza) *DC/Admit/Observation/Transfer - Discharge Dispostion Decision to Admit order: Yes <Amanda Pedraza - Last Filed: 10/10/17 12:55> - Discharge Dispostion Decision to Admit order: Yes <Lea Vaughn - Last Filed: 10/10/17 13:14> Diagnosis at time of Disposition: Hypertensive emergency, Hyperglycemia, Hyperkalemia, MICHAEL (acute kidney injury) , Prolonged Q-T interval on ECG Pulmonary edema Qualifiers: Chronicity: acute Qualified Code(s): J81.0 - Acute pulmonary edema CHF exacerbation Qualifiers: Heart failure type: unspecified Qualified Code(s): I50.9 - Heart failure, unspecified - Discharge Dispostion Condition at time of disposition: Guarded - Referrals Referrals: Channing Elena MD [Primary Care Provider] - - Patient Instructions - Post Discharge Activity
[2017-10-10 10:34] LABS: EOS % 4.3 % (0-4.5); HEMATOCRIT 23.9 % (32.4-45.2); HEMOGLOBIN 7.8 GM/dL (10.7-15.3); LYMPH % 14.7 % (8-40); MCH 28.4 pg (25.7-33.7); MCHC 32.4 g/dl (32.0-36.0); MEAN CELL VOLUME 87.6 fl (80-96); MEAN PLT VOLUME 7.6 fl (7.5-11.1); MONO % 5.9 % (3.8-10.2); NEUT % 74.1 % (42.8-82.8); PLATELET COUNT 322 K/MM3 (134-434); RBC 2.73 M/mm3 (3.60-5.2); RDW 14.6 % (11.6-15.6); WHITE BLOOD COUNT 10.2 K/mm3 (4.0-10.0)
[2017-10-10] MEDS ORDERED: ASPIRIN 325 MG TABLET ONE (10:46)
[2017-10-10 10:49] LABS: ARTERIAL BLOOD GAS pH 7.38 (7.35-7.45)
[2017-10-10 10:50] LABS: ARTERIAL BLD GAS O2 SATURATION 96.3 % (90-98.9); ARTERIAL BLOOD GAS BASE EXCESS -9.2 meq/l (-2-2); ARTERIAL BLOOD GAS PCO2 25.5 mmHg (35-45); ARTERIAL BLOOD GAS PO2 74.7 mmHg (80-100)
[2017-10-10 11:08] LABS: ANION GAP 13 (8-16); BILIRUBIN,TOTAL 0.6 mg/dL (0.2-1.0); BLOOD UREA NITROGEN 26 mg/dL (7-18); CALCIUM 8.6 mg/dL (8.5-10.1); CHLORIDE 106 mmol/L (98-107); CO2 13 mmol/L (21-32); CREATININE 1.8 mg/dL (0.55-1.02); LIPASE 134 U/L (73-393); SGPT/ALT 24 U/L (12-78); SODIUM 132 mmol/L (136-145); TOT PROT 7.4 g/dl (6.4-8.2)
[2017-10-10 11:11] LABS: ALK PHOS 475 U/L (45-117); N-TERMINAL BNP 19203.37 pg/ml (5-125)
[2017-10-10 11:13] LABS: GLUCOSE,RANDOM 538 mg/dL (74-106); MAGNESIUM 2.2 mg/dL (1.8-2.4); POTASSIUM 5.3 mmol/L (3.5-5.1); SGOT/AST 18 U/L (15-37)
[2017-10-10] MEDS ORDERED: NITROGLYCERIN 25MG/D5W 250ML 25 MG/250 ML ML IVPB SCH (11:30)
[2017-10-10 11:35] LABS: INR 1.18 (0.82-1.09); PROTHROMBIN TIME (PATIENT) 13.3 SEC (9.7-13.0)
[2017-10-10 11:38] LABS: ACTIVATED PTT 29.9 SECONDS (26.9-34.4)
[2017-10-10] MEDS ORDERED: NITROGLYCERIN 25MG/D5W 250ML 25 MG/250 ML ML IVPB ONE (11:45)
--- NOTE | 2017-10-10 11:45 | EKG ---
Test Reason : Blood Pressure : / mmHG Vent. Rate : 086 BPM Atrial Rate : 086 BPM P-R Int : 198 ms QRS Dur : 106 ms QT Int : 446 ms P-R-T Axes : 027 032 046 degrees QTc Int : 533 ms NORMAL SINUS RHYTHM NONSPECIFIC ST AND T WAVE ABNORMALITY PROLONGED QT ABNORMAL ECG WHEN COMPARED WITH ECG OF 18-SEP-2017 03:42, NONSPECIFIC T WAVE ABNORMALITY NO LONGER EVIDENT IN INFERIOR LEADS NONSPECIFIC T WAVE ABNORMALITY, IMPROVED IN LATERAL LEADS Confirmed by MD Palma, Eric ([id number]) on 10/10/2017 11:45:27 AM Referred By: Confirmed By:Eric Waldrop MD
[2017-10-10] MEDS ORDERED: INSULIN REGULAR HUMAN 100 UNITS/ML *VIAL IVPUSH ONE (11:49)
[2017-10-10] MEDS ORDERED: FUROSEMIDE 40 MG/4 ML INJECTABLE VIAL IVPUSH ONE ×2 (11:50→17:45)
[2017-10-10 11:51] LABS: ANION GAP 10 (8-16); BILIRUBIN,TOTAL 0.6 mg/dL (0.2-1.0); BLOOD UREA NITROGEN 26 mg/dL (7-18); CALCIUM 8.7 mg/dL (8.5-10.1); CHLORIDE 106 mmol/L (98-107); CO2 17 mmol/L (21-32); CREATININE 1.8 mg/dL (0.55-1.02); LIPASE 130 U/L (73-393); MAGNESIUM 2.2 mg/dL (1.8-2.4); POTASSIUM 5.3 mmol/L (3.5-5.1); SGOT/AST 16 U/L (15-37); SGPT/ALT 23 U/L (12-78); SODIUM 133 mmol/L (136-145); TOT PROT 7.6 g/dl (6.4-8.2)
[2017-10-10 11:54] LABS: ALK PHOS 481 U/L (45-117); N-TERMINAL BNP 20409.72 pg/ml (5-125)
[2017-10-10] MEDS ORDERED: FUROSEMIDE 40 MG/4 ML INJECTABLE VIAL ONE (11:58)
[2017-10-10] MEDS ORDERED: INSULIN (NOVOLOG) ASPART 100 UNITS/ML 10ML VIAL ONE (11:59)
--- NOTE | 2017-10-10 11:59 | PDOC ---
Attending Attestation - Resident Resident Name: Amanda Pedraza - ED Attending Attestation I have performed the following: I have examined & evaluated the patient, The case was reviewed & discussed with the resident, I agree w/resident's findings & plan, Exceptions are as noted - HPI HPI: 10/10/17 12:18 Patient is a 62 F, with PMHx of IDDM, Asthma, COPD, HTN, CHF, CAD, [place], aortic valve replacement, currently on Plavix, who presents with shortness of breath and chest pain. Patient states that her SOB began 2 days ago. She also reports b/l lower extremity swelling for the past 2 days. She took her inhaler w/out relief. Patient recently traveled to [facility], states the drive was 3-4 hours and she took breaks. Patient states her chest pain began this morning and describes it as left-sided, non-radiating, rates 5/10. She reports associated nausea. Reports compliance with lasix and all other meds. She denies fever, chills, cough, vomitting, diarrhea, constipation, rash, headache, lightheadedness/dizziness. - Physicial Exam PE: 10/10/17 12:18 agree with resident exam - Medical Decision Making 10/10/17 11:54 62-year-old female with multiple medical problems including coronary artery disease, CHF, COPD presents emergency department with progressive shortness of breath. Vitals remarkable for elevated blood pressure and tachypnea. On exam patient has diminished breath sounds at the bases concerning for possible CHF exacerbation despite reported compliance with Lasix. Given elevated blood pressure, tachypnea and fluid overload, will initiate BiPAP and a nitro drip for presumed acute pulmonary edema. Heart Score/ECG Review - History History: Moderately suspicious - Electrocardiogram EKG: Non specific repolarization disturbance - Age Age: 45-65 - Risk Factors Based on the list above the patient has:: >/=3 risk factors or Hx atherosclerotic disease - Troponin Troponin: </= normal limit - Score Heart Score - Total: 5 #1 10/10/17 11:59 Twelve-lead EKG was performed and reviewed by me. Normal sinus rhythm, rate 86. Normal axis. No ST elevations. Sub mm-ST depression in leads V4 to V5. Prolonged QT.
[2017-10-10 12:07] LABS: URINE APPEARANCE CLEAR; URINE BILIRUBIN NEGATIVE (<2.0 mg/dL); URINE COLOR STRAW; URINE GLUCOSE (UA) 3+ (NEGATIVE); URINE KETONE TRACE (NEGATIVE); URINE LEUK ESTERASE NEGATIVE (NEGATIVE); URINE NITRITE NEGATIVE (NEGATIVE); URINE UROBILINOGEN NEGATIVE mg/dL (0.2-1.0)
[2017-10-10 12:12] LABS: URINE PROTEIN 3+ (NEGATIVE)
[2017-10-10 12:14] LABS: GLUCOSE,RANDOM 520 mg/dL (74-106)
[2017-10-10 12:16] LABS: EPI CELLS RARE /HPF (FEW); YEAST RARE
[2017-10-10] MEDS ORDERED: NITROGLYCERIN 2% OINTMENT - 1GM PACKET TD ONE ×2 (14:13→14:44)
--- NOTE | 2017-10-10 15:02 | HP ---
DATE OF ADMISSION: October 10, 2017 This is a 62-year-old female known to have CHF, coronary artery disease, valve replacement, she is on Plavix, COPD, plus insulin-dependent diabetes, hypertension came to the emergency room early this morning with shortness of breath. She was found to be in CHF, so got admitted. Patient was here 3 weeks ago with leg pain. It was basically muscle cramps and she was stable. Then, according to her, she went [facility] for her [employer] or something, then came back a week ago. Since then, she was feeling short of breath After coming to the ER, when I saw her, she is stable and breathing without much difficulty. She says she is taking all of her medicines. PHYSICAL EXAMINATION: Vital Signs: Her blood pressure was high at 220/100 and has come down to 184/90. Pulse is 86, respirations 20, temperature 98. HEENT: Unremarkable. Neck: Supple. Lungs: Bibasilar rales. Heart: S1, S2 normal. No S3, S4. Abdomen: Soft. Legs: Minimal edema present. Neurologic: Grossly normal. LABORATORY REPORTS: WBC 10, hemoglobin 7.8, hematocrit 23.9. Chemistry: Sodium 143, potassium 5.3, creatinine 1.8, blood sugar was 520. Her BNP is 20,000. CHEST X-RAY: Pulmonary edema with maybe minimal fluid in the right base. FINAL DIAGNOSES: Congestive heart failure; respiratory failure; coronary artery disease; anemia; and renal insufficiency. PLAN: Admit to telemetry and cardiology consult, Dr. Nichols. Continue her personal medications, IV Lasix. Will follow this patient. Meryl [id number]
[2017-10-10] MEDS ORDERED: INSULIN REGULAR HUMAN 100 UNITS/ML *VIAL SQ ONE (15:39)
[2017-10-10] MEDS ORDERED: INSULIN REGULAR HUMAN 100 UNITS/ML *VIAL ONE (15:42)
[2017-10-10 16:08] LABS: ANION GAP 10 (8-16); BLOOD UREA NITROGEN 28 mg/dL (7-18); CALCIUM 8.8 mg/dL (8.5-10.1); CHLORIDE 107 mmol/L (98-107); CO2 17 mmol/L (21-32); CREATININE 1.9 mg/dL (0.55-1.02); SODIUM 134 mmol/L (136-145)
[2017-10-10 16:14] LABS: GLUCOSE,RANDOM 414 mg/dL (74-106)
[2017-10-10] MEDS ORDERED: ALBUTEROL SO4 18 GM HFA INHALER IH PRN (17:38)
[2017-10-10] MEDS: ASPIRIN COATED 81 MG TABLET.EC PO SCH (17:45)
[2017-10-10] MEDS: CLOPIDOGREL BISULFATE 75 MG TABLET (FP) PO SCH (17:45)
[2017-10-10] MEDS ORDERED: INSULIN (NOVOLOG) ASPART 100 UNITS/ML 10ML VIAL SQ ONE (17:45)
[2017-10-10] MEDS ORDERED: amLODIPine BESYLATE 5 MG TABLET (FP) PO ONE (17:45)
[2017-10-10] MEDS: CARVEDILOL 6.25 MG TABLET (FP) PO SCH ×2 (17:56→22:13)
[2017-10-10] MEDS: ISOSORBIDE MONONITRATE 60 MG TAB.SR.24H (FP) PO SCH (17:56)
[2017-10-10] MEDS: LOSARTAN POTASSIUM 50 MG TABLET (FP) PO SCH (17:56)
[2017-10-10] MEDS: RANITIDINE HCL 150 MG TABLET (FP) PO SCH (17:56)
--- NOTE | 2017-10-10 19:01 | CONS ---
DATE OF CONSULTATION: 10/10/2017 CARDIOLOGY CONSULTATION REQUESTED BY: Channing Elena MD CHIEF COMPLAINT: 1. Shortness of breath. 2. Exertional chest discomfort. 3. Uncontrolled hypertension. A 62-year-old female with history of coronary artery disease, status post myocardial infarction, history of multivessel PCI/stenting, hypertension, hypertensive cardiovascular disease, diabetes mellitus, dyslipidemia, chronic obstructive pulmonary disease, chronic anemia, history of COPD and chronic bronchitis, tobacco abuse, peripheral arterial disease, history of anemia, mitral valve repair. The patient states that she had gone [facility] to spend her birthday with her family, and while she was there, she had to climb 19 steps and developed anterior pressure-like chest discomfort relieved by rest. This happened on several occasions and while she was there, she had a birthday green party and admits to poor dietary compliance, which included food containing excessive amount of salt, sausages, etc. She later returned to [place] on Wednesday of last week and started noticing increasing dyspnea, initially with exertion, and then experienced orthopnea and paroxysmal nocturnal dyspnea. Patient states a few days prior to admission, she was unable to lie in bed and her shortness of breath became progressively worse and had to stay in her recliner. Today, she became acutely short of breath and did experience left-sided chest discomfort, which was short-lived but had several recurrences. The pain was nonradiating and non-pleuritic in nature. In the emergency room, she had accelerated hypertension, was in acute pulmonary edema. There is no history of lightheadedness, dizziness, presyncope, or syncope reported. There is history of pedal edema. Patient has chronic cough and expectoration. Patient states that she has not smoked since her birthday. She has had multiple admissions since moving to [place]. PAST HISTORY: As mentioned in the history of present illness. SURGICAL HISTORY: 1. Status post open-heart surgery for mitral valve repair. 2. Status post peripheral angiography. 3. Status post permanent pacemaker. 4. Status post cholecystectomy. 5. Status post surgery involving the left eye, type is uncertain. SOCIAL HISTORY: She has never been . She is single, has 2 sons and 2 daughters. She has been smoking since the age of 18 and smokes 1 pack of cigarettes per day. States that she has stopped for the past 1 week. Denies use of alcohol or drugs. Drinks 2 to 3 cups of coffee. FAMILY HISTORY: Mother at the age of 28 related to ovarian carcinoma. Father at the age of 57 related to a cerebrovascular accident. He was hypertensive, diabetic, and was abuser of ethanol. Has 1 brother and 2 sisters. The older sister at the age of 53 related to coronary artery disease and a myocardial infarction. Brother at the age of 50, also related to myocardial infarction and he was a diabetic. Her sister is alive. She is diabetic and hypertensive. ALLERGIES: IV CONTRAST. HOME MEDICATIONS: 1. Imdur 60 mg p.o. daily. 2. Albuterol 2 inhalations q.6 h. p.r.n. 3. Zantac 150 mg p.o. daily. 4. Aspirin 81 mg p.o. daily. 5. Carvedilol 6.25 mg p.o. b.i.d. 6. Clopidogrel 75 mg p.o. daily. 7. Gabapentin 400 mg p.o. t.i.d. 8. Levemir insulin 34 units subcutaneous nightly. 9. NovoLog insulin via sliding scale. 10. Losartan 50 mg p.o. daily. 11. Advair 100 mcg/50 mcg 1 inhalation b.i.d. 12. Atorvastatin 10 mg p.o. daily. 13. Lasix 40 mg p.o. daily. REVIEW OF SYSTEMS: Constitutional: No history of chills, fever or night sweats reported. No history of unintentional weight loss. HEENT: No history of headaches. History of blurred vision partly related to diabetes. No history of epistaxis or hoarseness. No history of tinnitus or deafness. Cardiovascular: See history of present illness. Respiratory: History of chronic cough, expectoration, whitish-yellowish. No history of hemoptysis. No history of dyspnea while she was traveling from [facility]. Gastrointestinal: History of intermittent loose bowel movements. No history of abdominal pain or discomfort. No history of nausea, vomiting, melena, or hematemesis. Endocrine: See history of present illness. Musculoskeletal: Denies having any arthralgias or myalgias. Neurological: History of peripheral neuropathy. No history of lightheadedness, dizziness, presyncope or syncope. No history of focal weakness or seizures. Genitourinary: Denies any dysuria, frequency, or hematuria. Hematological: History of chronic anemia. EXAMINATION: General: A 62-year-old female at the time of examination, who is in no acute distress. There was pallor. No cyanosis, clubbing, or jaundice. Vital Signs: Blood pressure, according to the ER, was 200/100 on admission; currently is 186/86 mmHg. Pulse 80 beats per minute and regular. Temperature 98.1 degrees Fahrenheit. Respirations are 22 per minute. Oxygen saturation was 98% on 2 L of oxygen. Neck: Supple. No jugular venous distention. Carotids were 2+. Upstrokes were normal. No bruits were heard and no thyromegaly was present. Slightly positive hepatojugular reflux. There was faint radiation versus bruit involving the carotids. No thyromegaly was appreciated. Heart: PMI was in the 5th intercostal space. No heaves or thrills. Heart sounds were distant. Ejection systolic murmur grade 2/6 was heard at the 2nd right intercostal space and along the left sternal border. There was a faint apical systolic murmur, grade 1/6. No diastolic murmur or gallops. Lungs: Fine crepitations at the left base posteriorly. The breath sounds were reduced bilaterally. Chest: Normal AP diameter. Expansion was symmetrical. There was a well-healed midline sternotomy scar. Abdomen: Soft, obese, and nontender. No hepatosplenomegaly or palpable masses were felt. Bowel sounds are present. No bruits were heard. Extremities: No calf tenderness or dependent edema. Femoral pulses were 1 to 2+. Dorsalis pedis and posterior tibial pulses could not be palpated. ECG: Sinus rhythm, interatrial conduction abnormality, diffuse nonspecific T wave abnormalities with U waves in selected leads. X-ray of chest: Impression: New pulmonary and pleural changes, large heart, previous open heart surgery, pacemaker, and in the narration, it was mentioned there are new congestive changes with bibasilar infiltrates and fluid. CBC: WBC count 10,200. Hemoglobin 7.8 g/dL. Platelet count 322,000. Differential: Neutrophils 74.1%, lymphocytes 14.7%, monocytes 5.9%, eosinophils 4.3%, basophils 1%. Chemistry: Sodium 134, potassium 5.0, chloride 107, CO2 70 mmol/L. BUN 28, creatinine 1.9 mg/dL. Random glucose 520 and 419 respectively. Serum calcium 8.5 g/dL. BNP 20,409.72. Troponin less than 0.02 on 2 different occasions. Alkaline phosphatase is elevated at 475 and 481, CK was 184 and 180. IMPRESSION: 1. Acute pulmonary edema. 2. Accelerated hypertension. 3. Coronary artery disease, status post multivessel percutaneous coronary intervention and stenting, recurrence of angina pectoris. 4. Diabetes mellitus, poorly controlled. 5. Diabetic nephropathy. 6. Probable diabetic retinopathy. 7. Diabetic neuropathy. 8. Anemia, etiology to be determined, partly related to chronic kidney disease. 9. History of chronic bronchitis and chronic obstructive pulmonary disease. 10. Tobacco abuse. 11. Poor dietary compliance. 12. Status post permanent pacemaker, possibly related to advanced AV block. 13. History of mitral valve repair. 14. Dyslipidemia. 15. Exogenous obesity. RECOMMENDATION: 1. Resume IV nitroglycerin and titrate for blood pressure. 2. Resume all cardiac medications. 3. Blood pressure remains elevated. Consider amlodipine 5 mg p.o. daily and titrate. 4. Dose of carvedilol may need to be increased. 5. Echocardiogram. 6. Follow up chest x-rays in a.m. 7. Risk modifications. 8. Follow up [facility]. PROGNOSIS: Critical. TIME SPENT: One hour twenty minutes. Thank you for your referral. Yours sincerely, CARLOS CASTILLO M.D. [id number]
[2017-10-10] MEDS ORDERED: PT OWN MED DRAWER 7, Y5N ONE (22:10)
[2017-10-10] MEDS: GABAPENTIN 400 MG CAPSULE (FP) PO SCH (22:13)
[2017-10-10] MEDS: INSULIN (LEVEMIR) 100 UNITS/ML UNITS SQ SCH (22:13)
[2017-10-10] MEDS: ATORVASTATIN CA 20 MG TABLET (FP) PO SCH (22:13)
[2017-10-10] MEDS: INSULIN SLIDING SCALE (NOVOLOG) 1 VIAL SQ SCH (22:14)
[2017-10-10] MEDS: FLUTICASONE/SALMETEROL 100 MCG/50 MCG DISKUS IH SCH (22:56)
[2017-10-10] MEDS: MELATONIN 5 MG TABLETS PO PRN (23:44)
[2017-10-10] MEDS ORDERED: diphenhydrAMINE HCL 25 MG CAPSULE (FP) PO ONE (23:45)
[2017-10-10] MEDS ORDERED: ACETAMINOPHEN 325 MG TABLET (FP) PO PRN (23:53)
[2017-10-11] MEDS: GABAPENTIN 400 MG CAPSULE (FP) PO SCH ×3 (05:50→21:10)
[2017-10-11] MEDS: INSULIN SLIDING SCALE (NOVOLOG) 1 VIAL SQ SCH ×4 (07:17→21:10)
--- NOTE | 2017-10-11 09:23 | PN ---
Progress Note, Physician Chief Complaint: Feels better History of Present Illness: [facility] cardiology consult appreciated - Current Medication List Current Medications: Active Medications Acetaminophen (Tylenol -) 650 mg PO Q6H PRN PRN Reason: CRAMPS AND PAIN LEVEL 1-5 Last Admin: 10/11/17 00:00 Dose: 650 mg Albuterol Sulfate (Ventolin Hfa Inhaler -) 2 puff IH Q6H PRN PRN Reason: WHEEZING Aspirin (Ecotrin -) 81 mg PO DAILY [facility] Last Admin: 10/10/17 17:45 Dose: Not Given Atorvastatin Calcium (Lipitor -) 20 mg PO HS [facility] Last Admin: 10/10/17 22:13 Dose: 20 mg Carvedilol (Coreg -) 6.25 mg PO BID [facility] Last Admin: 10/10/17 22:13 Dose: 6.25 mg Clopidogrel Bisulfate (Plavix -) 75 mg PO DAILY [facility] Last Admin: 10/10/17 17:45 Dose: Not Given Furosemide (Lasix Injection -) 40 mg IVPUSH DAILY [facility] Gabapentin (Neurontin -) 400 mg PO TID [facility] Last Admin: 10/11/17 05:50 Dose: 400 mg Insulin Aspart (Novolog Vial Sliding Scale -) 1 vial SQ [facility]; Protocol Last Admin: 10/11/17 07:17 Dose: Not Given Insulin Detemir (Levemir Vial) 34 units SQ HS [facility] Last Admin: 10/10/17 22:13 Dose: 34 units Isosorbide Mononitrate (Imdur -) 60 mg PO DAILY [facility] Last Admin: 10/10/17 17:56 Dose: 60 mg Losartan Potassium (Cozaar -) 50 mg PO DAILY [facility] Last Admin: 10/10/17 17:56 Dose: 50 mg Melatonin (Melatonin) 5 mg PO HS PRN PRN Reason: INSOMNIA Last Admin: 10/10/17 23:44 Dose: 5 mg Ranitidine HCl (Zantac -) 150 mg PO DAILY [facility] Last Admin: 10/10/17 17:56 Dose: 150 mg Fluticasone/Salmeterol (Advair 100mcg/50mcg -) 1 puff IH BID [facility] Last Admin: 10/10/17 22:56 Dose: 1 puff - Objective Vital Signs: Vital Signs Temperature 98.5 F 10/11/17 06:00 Pulse Rate 63 10/11/17 06:00 Respiratory Rate 18 10/11/17 06:00 Blood Pressure 153/87 10/11/17 06:00 O2 Sat by Pulse Oximetry (%) 99 10/10/17 22:00 Constitutional: Yes: No Distress Eyes: Yes: WNL HENT: Yes: WNL Neck: Yes: WNL Cardiovascular: Yes: Pulse Irregular Respiratory: Yes: SOB on Exertion ...Rectal Exam: Yes: Deferred Genitourinary: Yes: WNL Musculoskeletal: Yes: Muscle Weakness Edema: LLE: 1+, RLE: 1+ Labs: CBC, BMP 10/10/17 10:30 10/10/17 15:29 INR, PTT INR 1.18 (0.82-1.09) H 10/10/17 11:11 Assessment/Plan Continue same trt
[2017-10-11] MEDS: LOSARTAN POTASSIUM 50 MG TABLET (FP) PO SCH (09:29)
[2017-10-11] MEDS: ISOSORBIDE MONONITRATE 60 MG TAB.SR.24H (FP) PO SCH (09:29)
[2017-10-11] MEDS: CLOPIDOGREL BISULFATE 75 MG TABLET (FP) PO SCH (09:29)
[2017-10-11] MEDS: CARVEDILOL 6.25 MG TABLET (FP) PO SCH ×2 (09:29→21:10)
[2017-10-11] MEDS: ASPIRIN COATED 81 MG TABLET.EC PO SCH (09:29)
[2017-10-11] MEDS: FLUTICASONE/SALMETEROL 100 MCG/50 MCG DISKUS IH SCH ×2 (09:29→21:10)
[2017-10-11] MEDS: RANITIDINE HCL 150 MG TABLET (FP) PO SCH (09:29)
[2017-10-11] MEDS: FUROSEMIDE 40 MG/4 ML INJECTABLE VIAL IVPUSH SCH (09:29)
[2017-10-11] MEDS ORDERED: diphenhydrAMINE HCL 25 MG CAPSULE (FP) PO ONE (17:30)
--- NOTE | 2017-10-11 19:49 | PN ---
Progress Note (short form) - Note Progress Note: 62 year old AA female admitted with accelerated hypertension and acute pulmonary edema, associated with chest discomfort. c/o of significant fatique. No further SOB or chest pain or discomfort. States [place] and developed severe chest pain, results are not available. Active Medications Generic Name Dose Route Start Last Admin Trade Name Freq PRN Reason Stop Dose Admin Acetaminophen 650 mg 10/10/17 23:53 10/11/17 00:00 Tylenol - PO 650 mg Q6H PRN Administration CRAMPS AND PAIN LEVEL 1-5 Albuterol Sulfate 2 puff 10/10/17 17:38 Ventolin Hfa Inhaler - IH Q6H PRN WHEEZING Aspirin 81 mg 10/10/17 17:45 10/11/17 09:29 Ecotrin - PO 81 mg DAILY ANNE MARIE Administration Atorvastatin Calcium 20 mg 10/10/17 22:00 10/10/17 22:13 Lipitor - PO 20 mg HS ANNE MARIE Administration Carvedilol 6.25 mg 10/10/17 17:45 10/11/17 09:29 Coreg - PO 6.25 mg BID ANNE MARIE Administration Clopidogrel Bisulfate 75 mg 10/10/17 17:45 10/11/17 09:29 Plavix - PO 75 mg DAILY ANNE MARIE Administration Furosemide 40 mg 10/11/17 10:00 10/11/17 09:29 Lasix Injection - IVPUSH 40 mg DAILY ANNE MARIE Administration Gabapentin 400 mg 10/10/17 22:00 10/11/17 14:26 Neurontin - PO 400 mg TID ANNE MARIE Administration Insulin Aspart 1 vial 10/10/17 22:00 10/11/17 16:52 Novolog Vial Sliding Scale - SQ Not Given ACHS [facility] Protocol Insulin Detemir 34 units 10/10/17 22:00 10/10/17 22:13 Levemir Vial SQ 34 units HS ANNE MARIE Administration Isosorbide Mononitrate 60 mg 10/10/17 17:45 10/11/17 09:29 Imdur - PO 60 mg DAILY ANNE MARIE Administration Losartan Potassium 50 mg 10/10/17 17:45 10/11/17 09:29 Cozaar - PO 50 mg DAILY ANNE MARIE Administration Melatonin 5 mg 10/10/17 17:35 10/10/17 23:44 Melatonin PO 5 mg HS PRN Administration INSOMNIA Ranitidine HCl 150 mg 10/10/17 17:45 10/11/17 09:29 Zantac - PO 150 mg DAILY [facility] Administration Fluticasone/Salmeterol 1 puff 10/10/17 22:00 10/11/17 09:29 Advair 100mcg/50mcg - IH 1 puff BID ANNE MARIE Administration Patient is OOB, in no distress, no pallor or cyanosis,clubbing or jaundice. Last Vital Signs Temp Pulse Resp BP Pulse Ox 99.5 F 77 18 158/88 99 10/11/17 18:00 10/11/17 18:00 10/11/17 10:00 10/11/17 18:00 10/11/17 09:00 Intake & Output 10/08/17 10/09/17 10/10/17 10/11/17 23:59 23:59 23:59 23:59 Intake Total 600 300 Balance 600 300 Weight 205 lb NECK: Supple, no JVD, carotids 2+. HEART: NO heaves or thrills,distant sounds,SEMI/. at sebastián apex.S4 gallop. LUNGS: Clear. ABDOMEN:Soft nontender,no organomegaly or palpable masses. EXTREMITIES: no edema or dependent edema. CBC, BMP 10/10/17 10:30 10/10/17 15:29 IMPRESSION. 1.CAD,s/p PCI/stenting angina pectoris. 2.Acute LV failure. 3.CKD. 4.DM . 5.Hypertension, HVCD. 6.COPD. 7. Poor compliance. 8. Tobacco abuse. RECOMMENDATION. 1.Obtain records from [facility] 2.Icrease dose of Coreg to tolerance. 3.Patient will need f/u cath but high risk. 4.Risk modifications Prognosis: Critical Documentation prepared by Ledy Dos Santos, acting as a medical review coordinator for Fred Nichols MD.
[2017-10-11] MEDS: ATORVASTATIN CA 20 MG TABLET (FP) PO SCH (21:10)
[2017-10-11] MEDS: INSULIN (LEVEMIR) 100 UNITS/ML UNITS SQ SCH (21:10)
[2017-10-11] MEDS: MELATONIN 5 MG TABLETS PO PRN (21:13)
[2017-10-11] MEDS ORDERED: PT OWN MED DRAWER 7, Y5N ONE (21:13)
[2017-10-11] MEDS: ACETAMINOPHEN 325 MG TABLET (FP) PO PRN ×2 (21:13)
[2017-10-12] MEDS: GABAPENTIN 400 MG CAPSULE (FP) PO SCH ×3 (06:35→21:26)
[2017-10-12] MEDS: INSULIN SLIDING SCALE (NOVOLOG) 1 VIAL SQ SCH ×4 (06:38→21:24)
[2017-10-12] MEDS ORDERED: PT OWN MED DRAWER 7, Y5N ONE (09:14)
--- NOTE | 2017-10-12 09:22 | PN ---
Progress Note, Physician Chief Complaint: Feels better History of Present Illness: Dr bass wants to get the repot last nuclear stress test report from [facility] - Current Medication List Current Medications: Active Medications Acetaminophen (Tylenol -) 650 mg PO Q6H PRN PRN Reason: CRAMPS AND PAIN LEVEL 1-5 Last Admin: 10/11/17 21:13 Dose: 650 mg Albuterol Sulfate (Ventolin Hfa Inhaler -) 2 puff IH Q6H PRN PRN Reason: WHEEZING Aspirin (Ecotrin -) 81 mg PO DAILY [facility] Last Admin: 10/11/17 09:29 Dose: 81 mg Atorvastatin Calcium (Lipitor -) 20 mg PO HS [facility] Last Admin: 10/11/17 21:10 Dose: 20 mg Carvedilol (Coreg -) 6.25 mg PO BID [facility] Last Admin: 10/11/17 21:10 Dose: 6.25 mg Clopidogrel Bisulfate (Plavix -) 75 mg PO DAILY [facility] Last Admin: 10/11/17 09:29 Dose: 75 mg Furosemide (Lasix Injection -) 40 mg IVPUSH DAILY [facility] Last Admin: 10/11/17 09:29 Dose: 40 mg Gabapentin (Neurontin -) 400 mg PO TID [facility] Last Admin: 10/12/17 06:35 Dose: 400 mg Insulin Aspart (Novolog Vial Sliding Scale -) 1 vial SQ [facility]; Protocol Last Admin: 10/12/17 06:38 Dose: Not Given Insulin Detemir (Levemir Vial) 34 units SQ HS [facility] Last Admin: 10/11/17 21:10 Dose: 34 units Isosorbide Mononitrate (Imdur -) 60 mg PO DAILY [facility] Last Admin: 10/11/17 09:29 Dose: 60 mg Losartan Potassium (Cozaar -) 50 mg PO DAILY [facility] Last Admin: 10/11/17 09:29 Dose: 50 mg Melatonin (Melatonin) 5 mg PO HS PRN PRN Reason: INSOMNIA Last Admin: 10/11/17 21:13 Dose: 5 mg Ranitidine HCl (Zantac -) 150 mg PO DAILY [facility] Last Admin: 10/11/17 09:29 Dose: 150 mg Fluticasone/Salmeterol (Advair 100mcg/50mcg -) 1 puff IH BID [facility] Last Admin: 10/11/17 21:10 Dose: 1 puff - Objective Vital Signs: Vital Signs Temperature 97.4 F L 10/12/17 08:27 Pulse Rate 70 10/12/17 08:27 Respiratory Rate 14 10/12/17 08:27 Blood Pressure 144/91 10/12/17 08:27 O2 Sat by Pulse Oximetry (%) 98 10/12/17 08:48 Constitutional: Yes: No Distress Eyes: Yes: WNL HENT: Yes: WNL Neck: Yes: WNL Cardiovascular: Yes: Regular Rate and Rhythm Respiratory: Yes: WNL Gastrointestinal: Yes: WNL ...Rectal Exam: Yes: Deferred Genitourinary: Yes: WNL Musculoskeletal: Yes: WNL Extremities: Yes: WNL Edema: No Integumentary: Yes: WNL Neurological: Yes: Alert Labs: CBC, BMP 10/10/17 10:30 10/10/17 15:29 INR, PTT INR 1.18 (0.82-1.09) H 10/10/17 11:11 Assessment/Plan As per cardiology
[2017-10-12] MEDS: ISOSORBIDE MONONITRATE 60 MG TAB.SR.24H (FP) PO SCH (10:08)
[2017-10-12] MEDS: LOSARTAN POTASSIUM 50 MG TABLET (FP) PO SCH (10:08)
[2017-10-12] MEDS: RANITIDINE HCL 150 MG TABLET (FP) PO SCH (10:08)
[2017-10-12] MEDS: ASPIRIN COATED 81 MG TABLET.EC PO SCH (10:08)
[2017-10-12] MEDS: CLOPIDOGREL BISULFATE 75 MG TABLET (FP) PO SCH (10:08)
[2017-10-12] MEDS: CARVEDILOL 6.25 MG TABLET (FP) PO SCH ×2 (10:08→21:26)
[2017-10-12] MEDS: FLUTICASONE/SALMETEROL 100 MCG/50 MCG DISKUS IH SCH ×2 (10:09→21:27)
[2017-10-12] MEDS: FUROSEMIDE 40 MG/4 ML INJECTABLE VIAL IVPUSH SCH (10:09)
[2017-10-12 20:11] LABS: HEMATOCRIT 28.6 % (32.4-45.2); HEMOGLOBIN 9.3 GM/dL (10.7-15.3); MCH 27.9 pg (25.7-33.7); MCHC 32.3 g/dl (32.0-36.0); MEAN CELL VOLUME 86.2 fl (80-96); MEAN PLT VOLUME 7.6 fl (7.5-11.1); PLATELET COUNT 350 K/MM3 (134-434); RBC 3.32 M/mm3 (3.60-5.2); WHITE BLOOD COUNT 8.3 K/mm3 (4.0-10.0)
[2017-10-12] MEDS: INSULIN (LEVEMIR) 100 UNITS/ML UNITS SQ SCH (21:24)
[2017-10-12] MEDS: ATORVASTATIN CA 20 MG TABLET (FP) PO SCH (21:26)
[2017-10-12] MEDS: MELATONIN 5 MG TABLETS PO PRN (21:36)
[2017-10-12] MEDS: ACETAMINOPHEN 325 MG TABLET (FP) PO PRN (21:36)
[2017-10-13 06:10] LABS: HEMATOCRIT 25.9 % (32.4-45.2); HEMOGLOBIN 8.6 GM/dL (10.7-15.3); MCH 28.5 pg (25.7-33.7); MCHC 33.2 g/dl (32.0-36.0); MEAN CELL VOLUME 85.6 fl (80-96); MEAN PLT VOLUME 6.9 fl (7.5-11.1); PLATELET COUNT 284 K/MM3 (134-434); RBC 3.03 M/mm3 (3.60-5.2); RDW 14.7 % (11.6-15.6); WHITE BLOOD COUNT 6.8 K/mm3 (4.0-10.0)
[2017-10-13] MEDS: GABAPENTIN 400 MG CAPSULE (FP) PO SCH ×3 (06:11→22:22)
[2017-10-13] MEDS: INSULIN SLIDING SCALE (NOVOLOG) 1 VIAL SQ SCH ×4 (06:16→22:31)
[2017-10-13 06:47] LABS: CALCIUM 8.2 mg/dL (8.5-10.1); CHLORIDE 107 mmol/L (98-107); POTASSIUM 4.7 mmol/L (3.5-5.1); SODIUM 138 mmol/L (136-145)
[2017-10-13 06:54] LABS: ALBUMIN 2.7 g/dl (3.4-5.0); ALK PHOS 366 U/L (45-117); ANION GAP 10 (8-16); BILIRUBIN,TOTAL 0.3 mg/dL (0.2-1.0); BLOOD UREA NITROGEN 44 mg/dL (7-18); CO2 21 mmol/L (21-32); GLUCOSE,RANDOM 67 mg/dL (74-106); SGOT/AST 8 U/L (15-37); SGPT/ALT 15 U/L (12-78); TOT PROT 6.6 g/dl (6.4-8.2)
[2017-10-13] MEDS ORDERED: PT OWN MED DRAWER 7, Y5N ONE ×2 (08:35→09:57)
[2017-10-13] MEDS: LOSARTAN POTASSIUM 50 MG TABLET (FP) PO SCH (09:12)
[2017-10-13] MEDS: FUROSEMIDE 40 MG/4 ML INJECTABLE VIAL IVPUSH SCH (09:12)
[2017-10-13] MEDS: RANITIDINE HCL 150 MG TABLET (FP) PO SCH (09:12)
[2017-10-13] MEDS: ISOSORBIDE MONONITRATE 60 MG TAB.SR.24H (FP) PO SCH (09:12)
[2017-10-13] MEDS: CLOPIDOGREL BISULFATE 75 MG TABLET (FP) PO SCH (09:12)
[2017-10-13] MEDS: CARVEDILOL 6.25 MG TABLET (FP) PO SCH ×2 (09:12→22:22)
[2017-10-13] MEDS: ASPIRIN COATED 81 MG TABLET.EC PO SCH (09:12)
[2017-10-13] MEDS: FLUTICASONE/SALMETEROL 100 MCG/50 MCG DISKUS IH SCH ×2 (09:13→22:21)
--- NOTE | 2017-10-13 09:36 | PN ---
Progress Note, Physician Chief Complaint: Feels better History of Present Illness: Xray chest shows marked improvements - Current Medication List Current Medications: Active Medications Acetaminophen (Tylenol -) 650 mg PO Q6H PRN PRN Reason: CRAMPS AND PAIN LEVEL 1-5 Last Admin: 10/12/17 21:36 Dose: 650 mg Albuterol Sulfate (Ventolin Hfa Inhaler -) 2 puff IH Q6H PRN PRN Reason: WHEEZING Aspirin (Ecotrin -) 81 mg PO DAILY [facility] Last Admin: 10/13/17 09:12 Dose: 81 mg Atorvastatin Calcium (Lipitor -) 20 mg PO HS [facility] Last Admin: 10/12/17 21:26 Dose: 20 mg Carvedilol (Coreg -) 6.25 mg PO BID [facility] Last Admin: 10/13/17 09:12 Dose: 6.25 mg Clopidogrel Bisulfate (Plavix -) 75 mg PO DAILY [facility] Last Admin: 10/13/17 09:12 Dose: 75 mg Furosemide (Lasix Injection -) 40 mg IVPUSH DAILY [facility] Last Admin: 10/13/17 09:12 Dose: 40 mg Gabapentin (Neurontin -) 400 mg PO TID [facility] Last Admin: 10/13/17 06:11 Dose: 400 mg Insulin Aspart (Novolog Vial Sliding Scale -) 1 vial SQ [facility]; Protocol Last Admin: 10/13/17 06:16 Dose: Not Given Insulin Detemir (Levemir Vial) 34 units SQ [facility] Last Admin: 10/12/17 21:24 Dose: 34 units Isosorbide Mononitrate (Imdur -) 60 mg PO DAILY [facility] Last Admin: 10/13/17 09:12 Dose: 60 mg Losartan Potassium (Cozaar -) 50 mg PO DAILY [facility] Last Admin: 10/13/17 09:12 Dose: 50 mg Melatonin (Melatonin) 5 mg PO HS PRN PRN Reason: INSOMNIA Last Admin: 10/12/17 21:36 Dose: 5 mg Ranitidine HCl (Zantac -) 150 mg PO DAILY [facility] Last Admin: 10/13/17 09:12 Dose: 150 mg Fluticasone/Salmeterol (Advair 100mcg/50mcg -) 1 puff IH BID [facility] Last Admin: 10/13/17 09:13 Dose: 1 puff - Objective Vital Signs: Vital Signs Temperature 97.7 F 10/13/17 05:45 Pulse Rate 71 10/13/17 05:45 Respiratory Rate 18 10/13/17 09:00 Blood Pressure 129/65 10/13/17 05:45 O2 Sat by Pulse Oximetry (%) 98 10/13/17 09:00 Constitutional: Yes: No Distress Eyes: Yes: WNL HENT: Yes: WNL Neck: Yes: WNL Cardiovascular: Yes: WNL Respiratory: Yes: Regular Gastrointestinal: Yes: Normal Bowel Sounds ...Rectal Exam: Yes: Deferred Genitourinary: Yes: WNL Edema: No Neurological: Yes: Alert Labs: CBC, BMP 10/13/17 05:55 10/13/17 05:55 INR, PTT INR 1.18 (0.82-1.09) H 10/10/17 11:11 - ....Imaging X-ray: Report Reviewed Assessment/Plan Transfer to regular floor
--- NOTE | 2017-10-13 09:53 | PN ---
Progress Note (short form) - Note Progress Note: 62 year old AA female known case of coronary artery disease, status post NV, complicated by ruptured mitral valve chordae associated with severe LV failure requiring mitral valve repair, status post [employer] of the left circumflex coronary artery, occluded RCA. Status post permanent pacemaker for advanced AV block, diabetes mellitus, hypertension/HCVD, hypercholesterolemia, CKD stage III, COPD , and tobacco abuse admitted with accelerated hypertension and acute pulmonary edema, accompanied by chest pain and uncontrolled diabetes mellitus. Continues to complain of significant fatigue. No further shortness of breath, chest pain, or discomfort. Patient is contemplating going back to [place]. She most likely will require further cardiac evaluation in view of her symptoms. Refer to Echo of 08/18/17, suboptimal study with moderate systolic LV dysfunction and evidence of pulmonary hypertension. Active Medications Acetaminophen (Tylenol -) 650 mg PO Q6H PRN PRN Reason: CRAMPS AND PAIN LEVEL 1-5 Last Admin: 10/12/17 21:36 Dose: 650 mg Albuterol Sulfate (Ventolin Hfa Inhaler -) 2 puff IH Q6H PRN PRN Reason: WHEEZING Aspirin (Ecotrin -) 81 mg PO DAILY [facility] Last Admin: 10/13/17 09:12 Dose: 81 mg Atorvastatin Calcium (Lipitor -) 20 mg PO HS [facility] Last Admin: 10/12/17 21:26 Dose: 20 mg Carvedilol (Coreg -) 6.25 mg PO BID [facility] Last Admin: 10/13/17 09:12 Dose: 6.25 mg Clopidogrel Bisulfate (Plavix -) 75 mg PO DAILY [facility] Last Admin: 10/13/17 09:12 Dose: 75 mg Furosemide (Lasix Injection -) 40 mg IVPUSH DAILY [facility] Last Admin: 10/13/17 09:12 Dose: 40 mg Gabapentin (Neurontin -) 400 mg PO TID [facility] Last Admin: 10/13/17 06:11 Dose: 400 mg Insulin Aspart (Novolog Vial Sliding Scale -) 1 vial SQ [facility]; Protocol Last Admin: 10/13/17 06:16 Dose: Not Given Insulin Detemir (Levemir Vial) 34 units SQ [facility] Last Admin: 10/12/17 21:24 Dose: 34 units Isosorbide Mononitrate (Imdur -) 60 mg PO DAILY [facility] Last Admin: 10/13/17 09:12 Dose: 60 mg Losartan Potassium (Cozaar -) 50 mg PO DAILY [facility] Last Admin: 10/13/17 09:12 Dose: 50 mg Melatonin (Melatonin) 5 mg PO HS PRN PRN Reason: INSOMNIA Last Admin: 10/12/17 21:36 Dose: 5 mg Ranitidine HCl (Zantac -) 150 mg PO DAILY [facility] Last Admin: 10/13/17 09:12 Dose: 150 mg Fluticasone/Salmeterol (Advair 100mcg/50mcg -) 1 puff IH BID [facility] Last Admin: 10/13/17 09:13 Dose: 1 puff Patient is OOB, in no distress, no pallor or cyanosis,clubbing or jaundice. Last Vital Signs Temp Pulse Resp BP Pulse Ox 97.7 F 71 18 129/65 98 10/13/17 05:45 10/13/17 05:45 10/13/17 09:00 10/13/17 05:45 10/13/17 09:00 Intake & Output 10/10/17 10/11/17 10/12/17 10/13/17 23:59 23:59 23:59 23:59 Intake Total 600 540 610 120 Balance 600 540 610 120 Weight 205 lb NECK: Supple, no JVD, negative HJR, carotids were equal and upstrokes were normal, no thyromegaly appreciated. HEART: PMI was in the 5th intercostal space, no heaves or thrills. Heart sounds are distant. No murmurs or gallops were appreciated. LUNGS: Decreased breath sounds at the bases, no crepitations or wheezing heard. ABDOMEN: Soft, nontender, no hepatosplenomegaly appreciated, and no palpable masses were felt. EXTREMITIES: No calf tenderness or dependent edema. DP and DT pulses are weak. CBC, BMP 10/13/17 05:55 10/13/17 05:55 Laboratory Results - last 24 hr 10/11/17 10/11/17 10/11/17 01:38 01:49 16:49 WBC RBC Hgb Hct MCV MCH MCHC RDW Plt Count MPV Sodium Potassium Chloride Carbon Dioxide Anion Gap BUN Creatinine Creat Clearance w eGFR POC Glucometer 54.37485 80.54170 167.37695 Random Glucose Calcium Total Bilirubin AST ALT Alkaline Phosphatase Total Protein Albumin 10/11/17 10/12/1718 20:50 06:37 11:36 WBC RBC Hgb Hct MCV MCH MCHC RDW Plt Count MPV Sodium Potassium Chloride Carbon Dioxide Anion Gap BUN Creatinine Creat Clearance w eGFR POC Glucometer 249.89546 144.16508 142.51786 Random Glucose Calcium Total Bilirubin AST ALT Alkaline Phosphatase Total Protein Albumin 10/12/17 10/12/17 10/13/17 19:00 19:00 05:55 WBC 8.3 6.8 RBC 3.32 L D 3.03 L Hgb 9.3 L D 8.6 L Hct 28.6 L D 25.9 L MCV 86.2 85.6 MCH 27.9 28.5 MCHC 32.3 33.2 RDW 15.0 14.7 Plt Count 350 284 MPV 7.6 6.9 L Sodium Potassium Chloride Carbon Dioxide Anion Gap BUN Creatinine Creat Clearance w eGFR POC Glucometer Random Glucose 427 H* Calcium Total Bilirubin AST ALT Alkaline Phosphatase Total Protein Albumin 10/13/17 05:55 WBC RBC Hgb Hct MCV MCH MCHC RDW Plt Count MPV Sodium 138 Potassium 4.7 Chloride 107 Carbon Dioxide 21 Anion Gap 10 BUN 44 H Creatinine 2.0 H Creat Clearance w eGFR 25.42 POC Glucometer Random Glucose 67 L Calcium 8.2 L Total Bilirubin 0.3 D AST 8 L ALT 15 Alkaline Phosphatase 366 H Total Protein 6.6 Albumin 2.7 L IMPRESSION. 1.CAD,s/p PCI/stenting, recurrence of angina pectoris. 2.Acute LV failure, precipitated by accelerated hypertension. 3.CKD. 4.Diabetes mellitus, poorly controlled. 5.Hypertension, HVCD. 6.Hypercholesterolemia. 7.Tobacco abuse. 8.Poor compliance. 9.Status post permanent pacemaker for advanced AV block. 10.COPD. RECOMMENDATION. 1.Detailed discussion regarding further management, patient is not sure whether she wants any further intervention locally or would go back [place] to be with her extended family. I have requested for her to have a family member give contact me and/or Dr. Elena. 2.Increase dose of Coreg to 12.5 mg PO Q12h and to tolerance. 3.Risk modifications. 4.Counciled regarding dietary restrictions, weight reduction, control of diabetes mellitus, and blood pressure. 5.If necessary, Ranxea could be added to the regimen. Prognosis: Guarded. Documentation prepared by Ledy Siracusa, acting as a medical technologist chief for Fred Nichols MD. Problem List - Problems (1) CAD (coronary artery disease) Code(s): I25.10 - ATHSCL HEART DISEASE OF [place] CORONARY ARTERY W/O ANG PCTRS (2) LVF (left ventricular failure) Code(s): I50.1 - LEFT VENTRICULAR FAILURE, UNSPECIFIED (3) CKD (chronic kidney disease) Code(s): N18.9 - CHRONIC KIDNEY DISEASE, UNSPECIFIED (4) T2DM (type 2 diabetes mellitus) Code(s): E11.9 - TYPE 2 DIABETES MELLITUS WITHOUT COMPLICATIONS (5) Hypertension Code(s): I10 - ESSENTIAL (PRIMARY) HYPERTENSION (6) Hypertensive cardiovascular disease Code(s): I11.9 - HYPERTENSIVE HEART DISEASE WITHOUT HEART FAILURE (7) COPD (chronic obstructive pulmonary disease) Code(s): J44.9 - CHRONIC OBSTRUCTIVE PULMONARY DISEASE, UNSPECIFIED
[2017-10-13] MEDS ORDERED: INSULIN (NOVOLOG) ASPART 100 UNITS/ML 10ML VIAL ONE (12:01)
[2017-10-13] MEDS: ATORVASTATIN CA 20 MG TABLET (FP) PO SCH (22:22)
[2017-10-13] MEDS: INSULIN (LEVEMIR) 100 UNITS/ML UNITS SQ SCH (22:31)
[2017-10-13] MEDS: MELATONIN 5 MG TABLETS PO PRN (22:32)
[2017-10-14] MEDS: INSULIN SLIDING SCALE (NOVOLOG) 1 VIAL SQ SCH ×3 (08:15→17:00)
[2017-10-14] MEDS: ISOSORBIDE MONONITRATE 60 MG TAB.SR.24H (FP) PO SCH (09:13)
[2017-10-14] MEDS: CARVEDILOL 6.25 MG TABLET (FP) PO SCH ×3 (09:13→21:54)
[2017-10-14] MEDS: ASPIRIN COATED 81 MG TABLET.EC PO SCH (09:13)
[2017-10-14] MEDS: CLOPIDOGREL BISULFATE 75 MG TABLET (FP) PO SCH (09:13)
[2017-10-14] MEDS: FUROSEMIDE 40 MG/4 ML INJECTABLE VIAL IVPUSH SCH (09:13)
[2017-10-14] MEDS: RANITIDINE HCL 150 MG TABLET (FP) PO SCH (09:13)
[2017-10-14] MEDS: FLUTICASONE/SALMETEROL 100 MCG/50 MCG DISKUS IH SCH (09:16)
[2017-10-14] MEDS: LOSARTAN POTASSIUM 50 MG TABLET (FP) PO SCH (09:18)
--- NOTE | 2017-10-14 09:51 | PN ---
Progress Note (short form) - Note Progress Note: 62 year old AA female admitted with accelerated hypertension and acute pulmonary edema, associated with chest discomfort. c/o of significant fatique. Had recurrence of chest pain last night lasting 10 minutes, nonradiating and had no associated symptoms. Patient does not want any intervention, haddetailed discussion with her daughter yesterday and she is well aware of her mother's condition. Active Medications Acetaminophen (Tylenol -) 650 mg PO Q6H PRN PRN Reason: CRAMPS AND PAIN LEVEL 1-5 Last Admin: 10/12/17 21:36 Dose: 650 mg Albuterol Sulfate (Ventolin Hfa Inhaler -) 2 puff IH Q6H PRN PRN Reason: WHEEZING Aspirin (Ecotrin -) 81 mg PO DAILY [facility] Last Admin: 10/14/17 09:13 Dose: 81 mg Atorvastatin Calcium (Lipitor -) 20 mg PO HS [facility] Last Admin: 10/13/17 22:22 Dose: 20 mg Carvedilol (Coreg -) 6.25 mg PO BID [facility] Last Admin: 10/14/17 09:13 Dose: 6.25 mg Clopidogrel Bisulfate (Plavix -) 75 mg PO DAILY [facility] Last Admin: 10/14/17 09:13 Dose: 75 mg Furosemide (Lasix Injection -) 40 mg IVPUSH DAILY [facility] Last Admin: 10/14/17 09:13 Dose: 40 mg Gabapentin (Neurontin -) 400 mg PO TID [facility] Last Admin: 10/13/17 22:22 Dose: 400 mg Insulin Aspart (Novolog Vial Sliding Scale -) 1 vial SQ [facility]; Protocol Last Admin: 10/14/17 08:15 Dose: 4 units Insulin Detemir (Levemir Vial) 34 units SQ [facility] Last Admin: 10/13/17 22:31 Dose: 34 units Isosorbide Mononitrate (Imdur -) 60 mg PO DAILY [facility] Last Admin: 10/14/17 09:13 Dose: 60 mg Losartan Potassium (Cozaar -) 50 mg PO DAILY [facility] Last Admin: 10/14/17 09:18 Dose: 50 mg Melatonin (Melatonin) 5 mg PO HS PRN PRN Reason: INSOMNIA Last Admin: 10/13/17 22:32 Dose: 5 mg Ranitidine HCl (Zantac -) 150 mg PO DAILY [facility] Last Admin: 10/14/17 09:13 Dose: 150 mg Fluticasone/Salmeterol (Advair 100mcg/50mcg -) 1 puff IH BID [facility] Last Admin: 10/14/17 09:16 Dose: 1 puff Patient in no distress, no pallor or cyanosis,clubbing or jaundice. Last Vital Signs Temp Pulse Resp BP Pulse Ox 98.1 F 75 18 156/77 98 10/13/17 17:00 10/14/17 00:33 10/14/17 00:33 10/14/17 00:33 10/13/17 09:00 Intake & Output 10/11/17 10/12/17 10/13/17 10/14/17 23:59 23:59 23:59 23:59 Intake Total 540 610 770 Balance 540 610 770 CBC, BMP 10/13/17 05:55 10/13/17 05:55 NECK: Supple, no JVD, carotids 2+. HEART: NO heaves or thrills,distant sounds,SEMI/.S4 gallop at the apex. LUNGS: Clear. ABDOMEN:Soft nontender,no organomegaly or palpable masses. EXTREMITIES: No edema or dependent edema. IMPRESSION. 1.CAD,s/p PCI/stenting recurrence of angina pectoris. 2.Acute LV failure, resolved. 3.CKD. 4.DM, poorly controlled. . 5.Hypertensive cardiovascular disease, with accelerated hypertension. 6.COPD. 7. Poor compliance. 8. Tobacco abuse. 9. S'p PPM for advanced AV block. RECOMMENDATION. 1.Records from [facility] reviewed. 2.Increase dose of Coreg to tolerance. 3.Increase dose of Imdur to 90mg. and if she tolerates it then to maximaum dose of 120mg. 3.Patient does not want any intervention. 4.Risk modifications Prognosis: Critical.
[2017-10-14] MEDS ORDERED: ISOSORBIDE MONONITRATE 30 MG, ISOSORBIDE MONONITRATE 60 MG PO SCH (11:15)
[2017-10-14] MEDS ORDERED: ISOSORBIDE MONONITRATE 60 MG TAB.SR.24H (FP) PO ONE (11:50)
[2017-10-14] MEDS ORDERED: ISOSORBIDE MONONITRATE 30 MG TAB.SR.24H (FP) PO ONE (11:51)
[2017-10-14] MEDS: GABAPENTIN 400 MG CAPSULE (FP) PO SCH ×2 (14:40→21:53)
--- NOTE | 2017-10-14 16:30 | PN ---
Progress Note, Physician Chief Complaint: Had chest pain last night History of Present Illness: Case discussed with Dr White,advised medical management now - Current Medication List Current Medications: Active Medications Acetaminophen (Tylenol -) 650 mg PO Q6H PRN PRN Reason: CRAMPS AND PAIN LEVEL 1-5 Last Admin: 10/12/17 21:36 Dose: 650 mg Albuterol Sulfate (Ventolin Hfa Inhaler -) 2 puff IH Q6H PRN PRN Reason: WHEEZING Aspirin (Ecotrin -) 81 mg PO DAILY [facility] Last Admin: 10/14/17 09:13 Dose: 81 mg Atorvastatin Calcium (Lipitor -) 20 mg PO HS [facility] Last Admin: 10/13/17 22:22 Dose: 20 mg Carvedilol (Coreg -) 9.375 mg PO BID [facility] Last Admin: 10/14/17 11:54 Dose: 3.125 mg Clopidogrel Bisulfate (Plavix -) 75 mg PO DAILY [facility] Last Admin: 10/14/17 09:13 Dose: 75 mg Furosemide (Lasix Injection -) 40 mg IVPUSH DAILY [facility] Last Admin: 10/14/17 09:13 Dose: 40 mg Gabapentin (Neurontin -) 400 mg PO TID [facility] Last Admin: 10/13/17 22:22 Dose: 400 mg Insulin Aspart (Novolog Vial Sliding Scale -) 1 vial SQ [facility]; Protocol Last Admin: 10/14/17 11:05 Dose: 8 units Insulin Detemir (Levemir Vial) 34 units SQ [facility] Last Admin: 10/13/17 22:31 Dose: 34 units Isosorbide Mononitrate (Imdur -) 60 mg PO DAILY [facility] Losartan Potassium (Cozaar -) 50 mg PO DAILY [facility] Last Admin: 10/14/17 09:18 Dose: 50 mg Melatonin (Melatonin) 5 mg PO HS PRN PRN Reason: INSOMNIA Last Admin: 10/13/17 22:32 Dose: 5 mg Ranitidine HCl (Zantac -) 150 mg PO DAILY [facility] Last Admin: 10/14/17 09:13 Dose: 150 mg Fluticasone/Salmeterol (Advair 100mcg/50mcg -) 1 puff IH BID [facility] Last Admin: 10/14/17 09:16 Dose: 1 puff - Objective Vital Signs: Vital Signs Temperature 98.1 F 10/13/17 17:00 Pulse Rate 78 10/14/17 13:54 Respiratory Rate 12 10/14/17 13:54 Blood Pressure 101/67 10/14/17 13:54 O2 Sat by Pulse Oximetry (%) 98 10/13/17 09:00 Constitutional: Yes: No Distress Eyes: Yes: WNL HENT: Yes: WNL Neck: Yes: WNL Cardiovascular: Yes: WNL Respiratory: Yes: WNL Gastrointestinal: Yes: WNL ...Rectal Exam: Yes: Deferred Genitourinary: Yes: WNL Musculoskeletal: Yes: WNL Neurological: Yes: Alert Labs: CBC, BMP 10/13/17 05:55 10/13/17 05:55 INR, PTT INR 1.18 (0.82-1.09) H 10/10/17 11:11 Assessment/Plan As per cardiology
[2017-10-14] MEDS: ATORVASTATIN CA 20 MG TABLET (FP) PO SCH (21:53)
[2017-10-15] MEDS: INSULIN (LEVEMIR) 100 UNITS/ML UNITS SQ SCH ×2 (00:29→21:26)
[2017-10-15] MEDS: INSULIN SLIDING SCALE (NOVOLOG) 1 VIAL SQ SCH ×5 (00:30→21:27)
[2017-10-15] MEDS: ACETAMINOPHEN 325 MG TABLET (FP) PO PRN ×2 (00:34→21:27)
[2017-10-15] MEDS: MELATONIN 5 MG TABLETS PO PRN ×2 (00:58→22:11)
[2017-10-15] MEDS ORDERED: ALBUTEROL SO4 18 GM HFA INHALER IH PRN (01:03)
[2017-10-15] MEDS: GABAPENTIN 400 MG CAPSULE (FP) PO SCH ×3 (06:01→21:22)
[2017-10-15] MEDS ORDERED: PT OWN MED DRAWER 7, Y5N ONE ×2 (09:02→21:16)
[2017-10-15] MEDS: ASPIRIN COATED 81 MG TABLET.EC PO SCH (09:09)
[2017-10-15] MEDS: CLOPIDOGREL BISULFATE 75 MG TABLET (FP) PO SCH (09:09)
[2017-10-15] MEDS: RANITIDINE HCL 150 MG TABLET (FP) PO SCH (09:09)
[2017-10-15] MEDS: CARVEDILOL 6.25 MG TABLET (FP) PO SCH ×2 (09:10→21:23)
[2017-10-15] MEDS: FLUTICASONE/SALMETEROL 100 MCG/50 MCG DISKUS IH SCH ×3 (09:13→21:26)
[2017-10-15] MEDS: FUROSEMIDE 40 MG/4 ML INJECTABLE VIAL IVPUSH SCH (09:37)
--- NOTE | 2017-10-15 10:06 | PN ---
Progress Note, Physician Chief Complaint: Pt seen and examined,vitals stable TRansferred from ICU last night Feels better,sitting in the chair NO sob - Current Medication List Current Medications: Active Medications Acetaminophen (Tylenol -) 650 mg PO Q6H PRN PRN Reason: CRAMPS AND PAIN LEVEL 1-5 Albuterol Sulfate (Ventolin Hfa Inhaler -) 2 puff IH Q6H PRN PRN Reason: WHEEZING Aspirin (Ecotrin -) 81 mg PO DAILY [facility] Last Admin: 10/15/17 09:09 Dose: 81 mg Atorvastatin Calcium (Lipitor -) 20 mg PO HS [facility] Carvedilol (Coreg -) 9.375 mg PO BID [facility] Last Admin: 10/15/17 09:10 Dose: 9.375 mg Clopidogrel Bisulfate (Plavix -) 75 mg PO DAILY [facility] Last Admin: 10/15/17 09:09 Dose: 75 mg Furosemide (Lasix Injection -) 40 mg IVPUSH DAILY [facility] Last Admin: 10/15/17 09:37 Dose: 40 mg Gabapentin (Neurontin -) 400 mg PO TID [facility] Last Admin: 10/15/17 06:01 Dose: 400 mg Insulin Aspart (Novolog Vial Sliding Scale -) 1 vial SQ [facility]; Protocol Last Admin: 10/15/17 06:02 Dose: Not Given Insulin Detemir (Levemir Vial) 34 units SQ HS [facility] Isosorbide Mononitrate (Imdur -) 60 mg PO DAILY [facility] Losartan Potassium (Cozaar -) 50 mg PO DAILY [facility] Melatonin (Melatonin) 5 mg PO HS PRN PRN Reason: INSOMNIA Ranitidine HCl (Zantac -) 150 mg PO DAILY [facility] Last Admin: 10/15/17 09:09 Dose: 150 mg Fluticasone/Salmeterol (Advair 100mcg/50mcg -) 1 puff IH BID [facility] Last Admin: 10/15/17 09:13 Dose: 1 puff - Objective Vital Signs: Vital Signs Temperature 98.2 F 10/15/17 08:05 Pulse Rate 72 10/15/17 08:05 Respiratory Rate 16 10/15/17 08:05 Blood Pressure 112/68 10/15/17 08:05 O2 Sat by Pulse Oximetry (%) 98 10/13/17 09:00 Constitutional: Yes: No Distress Eyes: Yes: Conjunctiva Clear Cardiovascular: Yes: Regular Rate and Rhythm Respiratory: Yes: Regular, CTA Bilaterally Gastrointestinal: Yes: Normal Bowel Sounds, Soft Musculoskeletal: Yes: WNL Extremities: Yes: WNL Edema: No Peripheral Pulses WNL: Yes Neurological: Yes: WNL, Alert ...Motor Strength: WNL Psychiatric: Yes: WNL, Alert Labs: CBC, BMP 10/13/17 05:55 10/14/17 23:30 INR, PTT INR 1.18 (0.82-1.09) H 10/10/17 11:11 Assessment/Plan CAD,s/p PCI LVF CKD HTN COPD DM S/p PPM PLAN Continue medications monitor blood sugar Will f/u cardiolgy rec Monitor LABS
[2017-10-15] MEDS: LOSARTAN POTASSIUM 50 MG TABLET (FP) PO SCH (11:18)
[2017-10-15] MEDS: ISOSORBIDE MONONITRATE 60 MG TAB.SR.24H (FP) PO SCH (11:19)
[2017-10-15] MEDS: ATORVASTATIN CA 20 MG TABLET (FP) PO SCH (21:23)
[2017-10-16] MEDS: INSULIN SLIDING SCALE (NOVOLOG) 1 VIAL SQ SCH ×4 (06:29→22:44)
[2017-10-16] MEDS: GABAPENTIN 400 MG CAPSULE (FP) PO SCH ×3 (06:31→21:42)
[2017-10-16 06:34] LABS: BASO % 1.2 % (0-2.0); EOS % 4.3 % (0-4.5); HEMATOCRIT 24.6 % (32.4-45.2); HEMOGLOBIN 8.2 GM/dL (10.7-15.3); LYMPH % 32.6 % (8-40); MCHC 33.1 g/dl (32.0-36.0); MEAN CELL VOLUME 84.5 fl (80-96); MEAN PLT VOLUME 7.4 fl (7.5-11.1); MONO % 11.7 % (3.8-10.2); NEUT % 50.2 % (42.8-82.8); PLATELET COUNT 252 K/MM3 (134-434); RBC 2.92 M/mm3 (3.60-5.2); RDW 14.1 % (11.6-15.6); WHITE BLOOD COUNT 6.6 K/mm3 (4.0-10.0)
[2017-10-16 07:14] LABS: ALBUMIN 2.7 g/dl (3.4-5.0); ALK PHOS 338 U/L (45-117); ANION GAP 7 (8-16); BILIRUBIN,TOTAL 0.2 mg/dL (0.2-1.0); BLOOD UREA NITROGEN 57 mg/dL (7-18); CALCIUM 8.3 mg/dL (8.5-10.1); CHLORIDE 108 mmol/L (98-107); CO2 22 mmol/L (21-32); CREATININE 1.8 mg/dL (0.55-1.02); GLUCOSE,RANDOM 163 mg/dL (74-106); POTASSIUM 4.6 mmol/L (3.5-5.1); SGOT/AST 11 U/L (15-37); SGPT/ALT 14 U/L (12-78); SODIUM 137 mmol/L (136-145); TOT PROT 6.6 g/dl (6.4-8.2)
[2017-10-16] MEDS: RANITIDINE HCL 150 MG TABLET (FP) PO SCH (09:31)
[2017-10-16] MEDS: CARVEDILOL 6.25 MG TABLET (FP) PO SCH ×2 (09:31→21:38)
[2017-10-16] MEDS: ISOSORBIDE MONONITRATE 60 MG TAB.SR.24H (FP) PO SCH (09:31)
[2017-10-16] MEDS: FUROSEMIDE 40 MG/4 ML INJECTABLE VIAL IVPUSH SCH (09:31)
[2017-10-16] MEDS: CLOPIDOGREL BISULFATE 75 MG TABLET (FP) PO SCH (09:31)
[2017-10-16] MEDS: ASPIRIN COATED 81 MG TABLET.EC PO SCH (09:31)
[2017-10-16] MEDS: LOSARTAN POTASSIUM 50 MG TABLET (FP) PO SCH (09:31)
[2017-10-16] MEDS: FLUTICASONE/SALMETEROL 100 MCG/50 MCG DISKUS IH SCH ×2 (09:32→22:00)
[2017-10-16] MEDS ORDERED: INSULIN (NOVOLOG) ASPART 100 UNITS/ML 10ML VIAL ONE (10:49)
--- NOTE | 2017-10-16 14:32 | PN ---
Progress Note, Physician Chief Complaint: Feels improved less SOB denies any palpitation or chest discomfort. History of Present Illness: 61 yrs old F multiple Co-morbidities H/O HTN, Dyslipedemia, CAD s/p Stent , MVR , Pacemaker, Ischemic Cardiomyopathy, systolic HF, CKD stgae 3, COPD, smoker, Chronic anemia, - Current Medication List Current Medications: Active Medications Acetaminophen (Tylenol -) 650 mg PO Q6H PRN PRN Reason: CRAMPS AND PAIN LEVEL 1-5 Last Admin: 10/15/17 21:27 Dose: 650 mg Albuterol Sulfate (Ventolin Hfa Inhaler -) 2 puff IH Q6H PRN PRN Reason: WHEEZING Aspirin (Ecotrin -) 81 mg PO DAILY [facility] Last Admin: 10/16/17 09:31 Dose: 81 mg Atorvastatin Calcium (Lipitor -) 20 mg PO HS [facility] Last Admin: 10/15/17 21:23 Dose: 20 mg Carvedilol (Coreg -) 9.375 mg PO BID [facility] Last Admin: 10/16/17 09:31 Dose: 9.375 mg Clopidogrel Bisulfate (Plavix -) 75 mg PO DAILY [facility] Last Admin: 10/16/17 09:31 Dose: 75 mg Furosemide (Lasix Injection -) 40 mg IVPUSH DAILY [facility] Last Admin: 10/16/17 09:31 Dose: 40 mg Gabapentin (Neurontin -) 400 mg PO TID [facility] Last Admin: 10/16/17 06:31 Dose: 400 mg Insulin Aspart (Novolog Vial Sliding Scale -) 1 vial SQ [facility]; Protocol Last Admin: 10/16/17 11:48 Dose: 4 units Insulin Detemir (Levemir Vial) 34 units SQ [facility] Last Admin: 10/15/17 21:26 Dose: 34 units Isosorbide Mononitrate (Imdur -) 60 mg PO DAILY [facility] Last Admin: 10/16/17 09:31 Dose: 60 mg Losartan Potassium (Cozaar -) 50 mg PO DAILY [facility] Last Admin: 10/16/17 09:31 Dose: 50 mg Melatonin (Melatonin) 5 mg PO HS PRN PRN Reason: INSOMNIA Last Admin: 10/15/17 22:11 Dose: 5 mg Ranitidine HCl (Zantac -) 150 mg PO DAILY [facility] Last Admin: 10/16/17 09:31 Dose: 150 mg Fluticasone/Salmeterol (Advair 100mcg/50mcg -) 1 puff IH BID [facility] Last Admin: 10/16/17 09:32 Dose: 1 puff - Objective Vital Signs: Vital Signs Temperature 98.2 F 10/16/17 09:30 Pulse Rate 65 10/16/17 09:30 Respiratory Rate 18 10/16/17 09:30 Blood Pressure 125/68 10/16/17 09:30 O2 Sat by Pulse Oximetry (%) 100 10/16/17 09:30 Elderly not in distress chest pain free no c/o SOB HEENT: Mm moist anemia + NECK: JVD (-) , Trachea central, CHEST: Non tender minimal basal crepts CVS:S1S2 R SM + at base ABD: Obese non tender Bs + EXT: LE edema resolved 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 Code(s): I50.20 - UNSPECIFIED SYSTOLIC (CONGESTIVE) HEART FAILURE Qualifiers: Heart failure chronicity: acute on chronic Qualified Code(s): I50.23 - Acute on chronic systolic (congestive) heart failure (3) COPD (chronic obstructive pulmonary disease) Assessment/Plan: compensated on Advair and PRN nebs Code(s): J44.9 - CHRONIC OBSTRUCTIVE PULMONARY DISEASE, UNSPECIFIED (4) CKD (chronic kidney disease) Assessment/Plan: Renal functions are improving now back to base line F/U serial BMP Code(s): N18.9 - CHRONIC KIDNEY DISEASE, UNSPECIFIED Qualifiers: Chronic kidney disease stage: stage 3 (moderate) Qualified Code(s): N18.3 - Chronic kidney disease, stage 3 (moderate) (5) Hypertensive cardiovascular disease Assessment/Plan: H/O HTN complicated CKD and CAD at present BP is well controlled. Code(s): I11.9 - HYPERTENSIVE HEART DISEASE WITHOUT HEART FAILURE (6) Anemia Assessment/Plan: ChRonic anemia H/H stable. Code(s): D64.9 - ANEMIA, UNSPECIFIED (7) Uncontrolled diabetes mellitus Assessment/Plan: Uncontrolled T2DM on Insulin will optimize Glycemic control. Code(s): E11.65 - TYPE 2 DIABETES MELLITUS WITH HYPERGLYCEMIA
--- NOTE | 2017-10-16 16:15 | PN ---
Progress Note (short form) - Note Progress Note: 62 year old AA female admitted with accelerated hypertension and acute pulmonary edema, associated with chest discomfort. S/p PPM, COPD, CKD, CAD, s/p PCI/stenting. DM, poorly controlled. C/o of significant fatique. Patient does not want any intervention. No further chest pain or discomfort. No SOB. She had episode of hypotension after increasing dose of imdur and coreg requiring a small fluid challenge and and no recurrence of hypotension and tolerating therapy. 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 Active Medications Acetaminophen (Tylenol -) 650 mg PO Q6H PRN PRN Reason: CRAMPS AND PAIN LEVEL 1-5 Last Admin: 10/15/17 21:27 Dose: 650 mg Albuterol Sulfate (Ventolin Hfa Inhaler -) 2 puff IH Q6H PRN PRN Reason: WHEEZING Aspirin (Ecotrin -) 81 mg PO DAILY [facility] Last Admin: 10/16/17 09:31 Dose: 81 mg Atorvastatin Calcium (Lipitor -) 20 mg PO HS [facility] Last Admin: 10/15/17 21:23 Dose: 20 mg Carvedilol (Coreg -) 9.375 mg PO BID [facility] Last Admin: 10/16/17 09:31 Dose: 9.375 mg Clopidogrel Bisulfate (Plavix -) 75 mg PO DAILY [facility] Last Admin: 10/16/17 09:31 Dose: 75 mg Furosemide (Lasix Injection -) 40 mg IVPUSH DAILY [facility] Last Admin: 10/16/17 09:31 Dose: 40 mg Gabapentin (Neurontin -) 400 mg PO TID [facility] Last Admin: 10/16/17 14:39 Dose: 400 mg Hydralazine HCl (Apresoline -) 25 mg PO TID [facility] Insulin Aspart (Novolog Vial Sliding Scale -) 1 vial SQ [facility]; Protocol Last Admin: 10/16/17 11:48 Dose: 4 units Insulin Detemir (Levemir Vial) 34 units SQ [facility] Last Admin: 10/15/17 21:26 Dose: 34 units Isosorbide Mononitrate (Imdur -) 60 mg PO DAILY [facility] Last Admin: 10/16/17 09:31 Dose: 60 mg Losartan Potassium (Cozaar -) 50 mg PO DAILY [facility] Last Admin: 06/16/18 09:31 Dose: 50 mg Melatonin (Melatonin) 5 mg PO HS PRN PRN Reason: INSOMNIA Last Admin: 10/15/17 22:11 Dose: 5 mg Ranitidine HCl (Zantac -) 150 mg PO DAILY [facility] Last Admin: 10/16/17 09:31 Dose: 150 mg Fluticasone/Salmeterol (Advair 100mcg/50mcg -) 1 puff IH BID [facility] Last Admin: 10/16/17 09:32 Dose: 1 puff Patient in no distress, no pallor or cyanosis,clubbing or jaundice. Last Vital Signs Temp Pulse Resp BP Pulse Ox 98.6 F 64 18 126/75 100 10/16/17 15:00 10/16/17 15:00 10/16/17 15:00 10/16/17 15:00 10/16/17 09:30 Intake & Output 10/13/17 10/14/17 10/15/17 10/16/17 23:59 23:59 23:59 23:59 Intake Total 851 371 3388 1020 Output Total 2 Balance 014 582 8538 1018 NECK: Supple, no JVD, carotids 2+. HEART: NO heaves or thrills,distant sounds,SEMI/. No diastolic murmur or gallops heard. LUNGS: Clear. ABDOMEN:Soft nontender,no organomegaly or palpable masses. EXTREMITIES: No edema or dependent edema. IMPRESSION. 1.CAD,s/p PCI/stenting recurrence of angina pectoris. 2.Acute LV failure, resolved. 3.CKD. 4.DM, poorly controlled. . 5.Hypertensive cardiovascular disease, with accelerated hypertension. 6.COPD. 7.Poor compliance. 8.Tobacco abuse. 9.S/p PPM for advanced AV block. RECOMMENDATION. 1.If necessary consider adding Ranexa. 2.Patient does not want any intervention. 3.Risk modifications. 4. Rehab. at SNF, will require social service help to find accomodation in [place]. 5. Increase ambulation. Prognosis: Guarded. time spent 35 guevara.
[2017-10-16] MEDS: ATORVASTATIN CA 20 MG TABLET (FP) PO SCH (21:39)
[2017-10-16] MEDS: RANOLAZINE E.R. 500 MG TABLET (FP) PO SCH (21:42)
[2017-10-16] MEDS ORDERED: PT OWN MED DRAWER 7, Y5N ONE (21:46)
[2017-10-16] MEDS: MELATONIN 5 MG TABLETS PO PRN (21:47)
[2017-10-16] MEDS ORDERED: hydrALAZINE HCL 25 MG TABLET (FP) PO SCH (22:00)
[2017-10-16] MEDS: INSULIN (LEVEMIR) 100 UNITS/ML UNITS SQ SCH (22:38)
[2017-10-16] MEDS: ACETAMINOPHEN 325 MG TABLET (FP) PO PRN (22:47)
[2017-10-17] MEDS: GABAPENTIN 400 MG CAPSULE (FP) PO SCH ×3 (06:21→22:29)
[2017-10-17] MEDS: INSULIN SLIDING SCALE (NOVOLOG) 1 VIAL SQ SCH ×4 (06:22→22:27)
[2017-10-17 08:03] LABS: EOS % 5.2 % (0-4.5); HEMATOCRIT 24.7 % (32.4-45.2); HEMOGLOBIN 8.1 GM/dL (10.7-15.3); LYMPH % 30.8 % (8-40); MCH 27.8 pg (25.7-33.7); MCHC 32.8 g/dl (32.0-36.0); MEAN CELL VOLUME 84.7 fl (80-96); MEAN PLT VOLUME 7.4 fl (7.5-11.1); MONO % 10.3 % (3.8-10.2); NEUT % 52.7 % (42.8-82.8); PLATELET COUNT 242 K/MM3 (134-434); RBC 2.92 M/mm3 (3.60-5.2); RDW 14.2 % (11.6-15.6); WHITE BLOOD COUNT 6.9 K/mm3 (4.0-10.0)
[2017-10-17 08:30] LABS: CHLORIDE 108 mmol/L (98-107); SODIUM 137 mmol/L (136-145)
[2017-10-17 08:48] LABS: ANION GAP 9 (8-16); BLOOD UREA NITROGEN 61 mg/dL (7-18); CALCIUM 8.5 mg/dL (8.5-10.1); CO2 20 mmol/L (21-32); CREATININE 2.2 mg/dL (0.55-1.02); GLUCOSE,RANDOM 134 mg/dL (74-106)
[2017-10-17 08:50] LABS: POTASSIUM 5.6 mmol/L (3.5-5.1)
[2017-10-17] MEDS ORDERED: INSULIN (NOVOLOG) ASPART 100 UNITS/ML 10ML VIAL ONE (10:17)
[2017-10-17] MEDS: CARVEDILOL 6.25 MG TABLET (FP) PO SCH ×2 (10:26→22:28)
[2017-10-17] MEDS: FLUTICASONE/SALMETEROL 100 MCG/50 MCG DISKUS IH SCH ×2 (10:26→22:29)
[2017-10-17] MEDS: RANOLAZINE E.R. 500 MG TABLET (FP) PO SCH ×2 (10:26→22:29)
[2017-10-17] MEDS: ISOSORBIDE MONONITRATE 60 MG TAB.SR.24H (FP) PO SCH (10:26)
[2017-10-17] MEDS: LOSARTAN POTASSIUM 50 MG TABLET (FP) PO SCH (10:27)
[2017-10-17] MEDS: ASPIRIN COATED 81 MG TABLET.EC PO SCH (10:27)
[2017-10-17] MEDS: FUROSEMIDE 40 MG/4 ML INJECTABLE VIAL IVPUSH SCH (10:27)
[2017-10-17] MEDS: CLOPIDOGREL BISULFATE 75 MG TABLET (FP) PO SCH (10:27)
[2017-10-17] MEDS: RANITIDINE HCL 150 MG TABLET (FP) PO SCH (10:27)
[2017-10-17] MEDS ORDERED: SODIUM POLYSTYRENE SULFONATE 15 GM/60 ML BOTTLE PO ONE (12:27)
--- NOTE | 2017-10-17 12:30 | PN ---
Progress Note, Physician Chief Complaint: Feels improved less SOB denies any palpitation or chest discomfort. History of Present Illness: 61 yrs old F multiple Co-morbidities H/O HTN, Dyslipedemia, CAD s/p Stent , MVR , Pacemaker, Ischemic Cardiomyopathy, systolic HF, CKD stgae 3, COPD, smoker, Chronic anemia, yesterday Ranexa added - Current Medication List Current Medications: Active Medications Acetaminophen (Tylenol -) 650 mg PO Q6H PRN PRN Reason: CRAMPS AND PAIN LEVEL 1-5 Last Admin: 10/16/17 22:47 Dose: 650 mg Albuterol Sulfate (Ventolin Hfa Inhaler -) 2 puff IH Q6H PRN PRN Reason: WHEEZING Aspirin (Ecotrin -) 81 mg PO DAILY [facility] Last Admin: 10/17/17 10:27 Dose: 81 mg Atorvastatin Calcium (Lipitor -) 20 mg PO HS [facility] Last Admin: 10/16/17 21:39 Dose: 20 mg Carvedilol (Coreg -) 9.375 mg PO BID [facility] Last Admin: 10/17/17 10:26 Dose: 9.375 mg Clopidogrel Bisulfate (Plavix -) 75 mg PO DAILY [facility] Last Admin: 10/17/17 10:27 Dose: 75 mg Furosemide (Lasix Injection -) 40 mg IVPUSH DAILY [facility] Last Admin: 10/17/17 10:27 Dose: 40 mg Gabapentin (Neurontin -) 400 mg PO TID [facility] Last Admin: 10/17/17 06:21 Dose: 400 mg Insulin Aspart (Novolog Vial Sliding Scale -) 1 vial SQ [facility]; Protocol Last Admin: 10/17/17 11:37 Dose: Not Given Insulin Detemir (Levemir Vial) 34 units SQ [facility] Last Admin: 10/16/17 22:38 Dose: 34 units Isosorbide Mononitrate (Imdur -) 60 mg PO DAILY [facility] Last Admin: 10/17/17 10:26 Dose: 60 mg Losartan Potassium (Cozaar -) 50 mg PO DAILY [facility] Last Admin: 10/17/17 10:27 Dose: 50 mg Melatonin (Melatonin) 5 mg PO HS PRN PRN Reason: INSOMNIA Last Admin: 10/16/17 21:47 Dose: 5 mg Ranitidine HCl (Zantac -) 150 mg PO DAILY [facility] Last Admin: 10/17/17 10:27 Dose: 150 mg Ranolazine (Ranexa -) 500 mg PO BID [facility] Last Admin: 10/17/17 10:26 Dose: 500 mg Fluticasone/Salmeterol (Advair 100mcg/50mcg -) 1 puff IH BID [facility] Last Admin: 10/17/17 10:26 Dose: 1 puff - Objective Vital Signs: Vital Signs Temperature 98.2 F 10/17/17 10:25 Pulse Rate 71 10/17/17 10:25 Respiratory Rate 18 10/17/17 10:25 Blood Pressure 119/60 10/17/17 10:25 O2 Sat by Pulse Oximetry (%) 100 10/16/17 21:00 Elderly not in distress chest pain free no c/o SOB HEENT: Mm moist anemia + NECK: JVD (-) , Trachea central, CHEST: Non tender minimal basal crepts CVS:S1S2 R SM + at base ABD: Obese non tender Bs + EXT: LE edema resolved Pulses + HEALTH RECORD TECHNICIAN: AOx3 non focal Labs: CBC, BMP 10/17/17 07:00 10/17/17 07:00 INR, PTT INR 1.18 (0.82-1.09) H 10/10/17 11:11 Problem List - Problems (1) CHF exacerbation Assessment/Plan: Improving with IV Lasix and on B Blockers, Losartan F/U BMP and CBC Code(s): I50.9 - HEART FAILURE, UNSPECIFIED Qualifiers: Heart failure type: unspecified Qualified Code(s): I50.9 - Heart failure, unspecified (2) Systolic HF (heart failure) Assessment/Plan: improving with IV lasix on maximum treatment s/p AICD cont current management. Code(s): I50.20 - UNSPECIFIED SYSTOLIC (CONGESTIVE) HEART FAILURE Qualifiers: Heart failure chronicity: acute on chronic Qualified Code(s): I50.23 - Acute on chronic systolic (congestive) heart failure (3) COPD (chronic obstructive pulmonary disease) Assessment/Plan: compensated on Advair and PRN nebs Code(s): J44.9 - CHRONIC OBSTRUCTIVE PULMONARY DISEASE, UNSPECIFIED (4) CKD (chronic kidney disease) Assessment/Plan: Renal functions are improving now back to base line F/U serial BMP Code(s): N18.9 - CHRONIC KIDNEY DISEASE, UNSPECIFIED Qualifiers: Chronic kidney disease stage: stage 3 (moderate) Qualified Code(s): N18.3 - Chronic kidney disease, stage 3 (moderate) (5) Hypertensive cardiovascular disease Assessment/Plan: H/O HTN complicated CKD and CAD at present BP is well controlled. Code(s): I11.9 - HYPERTENSIVE HEART DISEASE WITHOUT HEART FAILURE (6) Anemia Assessment/Plan: ChRonic anemia H/H stable. Code(s): D64.9 - ANEMIA, UNSPECIFIED (7) Uncontrolled diabetes mellitus Assessment/Plan: Uncontrolled T2DM on Insulin will optimize Glycemic control. Code(s): E11.65 - TYPE 2 DIABETES MELLITUS WITH HYPERGLYCEMIA (8) CAD (coronary artery disease) Assessment/Plan: On B Blockers, Statin, Isordil and Ranexa Code(s): I25.10 - ATHSCL HEART DISEASE OF [place] CORONARY ARTERY W/O ANG PCTRS Qualifiers: Coronary Disease-Associated Artery/Lesion type: bypass graft (9) Hyperkalemia Assessment/Plan: Kayxelate 15 gm once F/U BMP monitor rhythm Code(s): E87.5 - HYPERKALEMIA
[2017-10-17] MEDS: INSULIN (LEVEMIR) 100 UNITS/ML UNITS SQ SCH (22:27)
[2017-10-17] MEDS: ATORVASTATIN CA 20 MG TABLET (FP) PO SCH (22:29)
[2017-10-17] MEDS: MELATONIN 5 MG TABLETS PO PRN (23:20)
[2017-10-17] MEDS: ACETAMINOPHEN 325 MG TABLET (FP) PO PRN (23:20)
[2017-10-18] MEDS: INSULIN SLIDING SCALE (NOVOLOG) 1 VIAL SQ SCH (06:06)
[2017-10-18] MEDS: GABAPENTIN 400 MG CAPSULE (FP) PO SCH (06:08)
[2017-10-18 06:15] LABS: BASO % 1.5 % (0-2.0); EOS % 5.1 % (0-4.5); HEMATOCRIT 24.2 % (32.4-45.2); HEMOGLOBIN 8.1 GM/dL (10.7-15.3); LYMPH % 30.8 % (8-40); MCHC 33.5 g/dl (32.0-36.0); MEAN CELL VOLUME 83.8 fl (80-96); MEAN PLT VOLUME 7.3 fl (7.5-11.1); MONO % 11.9 % (3.8-10.2); NEUT % 50.7 % (42.8-82.8); PLATELET COUNT 228 K/MM3 (134-434); RBC 2.89 M/mm3 (3.60-5.2); RDW 14.5 % (11.6-15.6); WHITE BLOOD COUNT 6.8 K/mm3 (4.0-10.0)
[2017-10-18 06:33] LABS: ANION GAP 8 (8-16); BLOOD UREA NITROGEN 57 mg/dL (7-18); CALCIUM 8.6 mg/dL (8.5-10.1); CHLORIDE 108 mmol/L (98-107); CO2 23 mmol/L (21-32); CREATININE 2.2 mg/dL (0.55-1.02); GLUCOSE,RANDOM 103 mg/dL (74-106); POTASSIUM 4.8 mmol/L (3.5-5.1); SODIUM 139 mmol/L (136-145)
[2017-10-18] MEDS: CLOPIDOGREL BISULFATE 75 MG TABLET (FP) PO SCH (09:21)
[2017-10-18] MEDS: ASPIRIN COATED 81 MG TABLET.EC PO SCH (09:21)
[2017-10-18] MEDS: FUROSEMIDE 40 MG/4 ML INJECTABLE VIAL IVPUSH SCH (09:21)
[2017-10-18] MEDS: RANITIDINE HCL 150 MG TABLET (FP) PO SCH (09:21)
[2017-10-18] MEDS: RANOLAZINE E.R. 500 MG TABLET (FP) PO SCH (09:21)
[2017-10-18] MEDS: CARVEDILOL 6.25 MG TABLET (FP) PO SCH (09:22)
[2017-10-18 09:26] VITALS: PULSE 70; TEMP 98
--- NOTE | 2017-10-18 09:40 | DS ---
Physical Examination Vital Signs: Vital Signs Temperature 98 F 10/18/17 09:25 Pulse Rate 70 10/18/17 09:25 Respiratory Rate 18 10/18/17 09:25 Blood Pressure 152/80 10/18/17 09:25 O2 Sat by Pulse Oximetry (%) 100 10/17/17 21:00 Findings/Remarks: Admitted with accelerated HTN and CHF Known to have ASD MV disorder S/P pace maker Constitutional: Yes: Calm Eyes: Yes: WNL HENT: Yes: WNL Neck: Yes: WNL Cardiovascular: Yes: Pulse Irregular Respiratory: Yes: WNL Gastrointestinal: Yes: WNL ...Rectal Exam: Yes: Deferred Renal/: Yes: WNL Musculoskeletal: Yes: WNL Extremities: Yes: WNL Edema: No Neurological: Yes: Alert Psychiatric: Yes: Alert Labs: CBC, BMP 10/18/17 05:10 10/18/17 05:51 Discharge Summary Reason For Visit: MICHAEL, HYPERTENSIVE MINH. ACUTE ON CHRONIC CHF,PROLO Current Active Problems MICHAEL (acute kidney injury) (Acute) CHF exacerbation (Acute) CKD (chronic kidney disease) (Acute) COPD (chronic obstructive pulmonary disease) (Acute) Hyperglycemia (Acute) Hyperkalemia (Acute) Hypertension (Acute) Hypertensive cardiovascular disease (Acute) Hypertensive emergency (Acute) LVF (left ventricular failure) (Acute) Prolonged Q-T interval on ECG (Acute) Pulmonary edema (Acute) Condition: Guarded - Instructions Referrals: Channing Elena MD [Primary Care Provider] - - Home Medications Comprehensive Discharge Medication List: Ambulatory Orders Albuterol Sulfate Inhaler - [Ventolin HFA Inhaler -] 2 puff IH Q6H PRN 30 Days # 1 inhaler MDD 4 times 08/19/17 Isosorbide Mononitrate [Imdur -] 60 mg PO DAILY tab.sr.24h 08/19/17 Melatonin 5 mg PO HS PRN tab 08/19/17 Ranitidine [Zantac -] 150 mg PO DAILY #30 tablet 08/19/17 Aspirin Coated [Ecotrin -] 81 mg PO DAILY tablet.ec 08/24/17 Carvedilol [Coreg -] 6.25 mg PO BID tablet 08/24/17 Clopidogrel Bisulfate [Plavix -] 75 mg PO DAILY tablet 08/24/17 Gabapentin [Neurontin -] 400 mg PO TID capsule 08/24/17 Insulin (Levemir) [Levemir Vial] 34 units SQ HS ml 08/24/17 Insulin Sliding Scale [Novolog Vial Sliding Scale -] 1 vial SQ ACHS units 08/24 Losartan Potassium [Cozaar -] 50 mg PO DAILY tablet 08/24/17 Salmeterol/Fluticasone [Advair 100Mcg/50Mcg -] 1 puff IH BID inhaler 08/24/17 Atorvastatin Ca [Lipitor] 10 mg PO HS tablet 09/19/17 Furosemide [Lasix -] 20 mg PO DAILY 10/10/17
--- NOTE | 2017-10-18 10:28 | PN ---
Progress Note (short form) - Note Progress Note: 62 year old AA female admitted with accelerated hypertension and acute pulmonary edema, associated with chest discomfort. S/p PPM, COPD, CKD, CAD, s/p PCI/stenting. DM, poorly controlled. Ambulating, no further fatique, is being transfered to a SNF. She does not want any intervention and wants to move back to [place]. No further chest pain or discomfort. No SOB. Hemodynamically stable. Patient in no distress, no pallor or cyanosis,clubbing or jaundice. Last Vital Signs Temp Pulse Resp BP Pulse Ox 98 F 70 18 152/80 100 10/18/17 09:25 10/18/17 09:25 10/18/17 09:25 10/18/17 09:25 10/18/17 09:00 NECK: Supple, no JVD, carotids 2+. HEART: NO heaves or thrills,distant sounds,SEMI/. No diastolic murmur or gallops heard. LUNGS: Clear. ABDOMEN:Soft nontender,no organomegaly or palpable masses. EXTREMITIES: No edema or dependent edema. IMPRESSION. 1.CAD,s/p PCI/stenting recurrence of angina pectoris. 2.Acute LV failure, resolved, related to poor compliance. 3.CKD. 4.DM, poorly controlled. . 5.Hypertensive cardiovascular disease, with accelerated hypertension. 6.COPD. 7.Poor compliance. 8.Tobacco abuse. 9.S/p PPM for advanced AV block. RECOMMENDATION. 1.If necessary consider adding Ranexa. 2.Patient does not want any intervention. 3.Risk modifications. 4.Rehab. at SNF, will require social service help to find accomodation in [place]. 5.Councelled regarding her dietary restrictions and cessation of smoking. 6.Pacemaker monitoring. Prognosis: Guarded.
[2017-10-18] MEDS: LOSARTAN POTASSIUM 50 MG TABLET (FP) PO SCH (10:57)
[2017-10-18] MEDS: FLUTICASONE/SALMETEROL 100 MCG/50 MCG DISKUS IH SCH (10:57)
[2017-10-18] MEDS: ISOSORBIDE MONONITRATE 60 MG TAB.SR.24H (FP) PO SCH (10:57)
[2017-10-18 10:58] VITALS: BP 148/70
== END 2017-10-18 11:39 | DRG 291 ==
LOC: JER 09:45 → JERBED 12:52 → J2W 17:07 → J4W 10-15 05:46
PROVIDERS: ADMIT Internal Medicine; ATTEND Internal Medicine
DX: I13.0 Hypertensive heart and chronic kidney disease with heart failure and stage 1 through stage 4 chronic kidney disease, or unspecified chronic kidney disease (principal); I50.23 Acute on chronic systolic (congestive) heart failure; J81.0 Acute pulmonary edema; N17.9 Acute kidney failure, unspecified; I25.110 Atherosclerotic heart disease of native coronary artery with unstable angina pectoris; J44.9 Chronic obstructive pulmonary disease, unspecified; I25.2 Old myocardial infarction; I45.81 Long QT syndrome; E87.5 Hyperkalemia; I16.0 Hypertensive urgency; I25.5 Ischemic cardiomyopathy; E11.65 Type 2 diabetes mellitus with hyperglycemia; D63.1 Anemia in chronic kidney disease; E11.22 Type 2 diabetes mellitus with diabetic chronic kidney disease; N18.3 Chronic kidney disease, stage 3 (moderate); Z95.5 Presence of coronary angioplasty implant and graft; Z95.2 Presence of prosthetic heart valve; Z87.891 Personal history of nicotine dependence; Z95.0 Presence of cardiac pacemaker
CPT/HCPCS: 36415; 36430; 36600; 71045-TC-FY; 80048; 80053; 81003; 81015; 82009; 82375; 82550; 82553; 82803; 82947; 82962; 83050; 83690; 83735; 83880; 84484; 85025; 85027; 85610; 85730; 86850; 86900; 86901; 86922; 93005; 93010; 99285-25; P9038; P9058

== ENCOUNTER 2017-12-01 11:42 | Inpatient (IN) | payer OTHER ==
--- NOTE | 2017-12-01 12:42 | PDOC ---
History of Present Illness - General Chief Complaint: Shortness of Breath Stated Complaint: SOB, BLOOD TRANSFUSION (PCP SENT) Time Seen by Provider: 12/01/17 12:26 History Source: Patient - History of Present Illness Timing/Duration: other Associated Symptoms: reports: shortness of breath, weakness. denies: cough, fever/chills, nausea/vomiting Past History - Past Medical History Allergies/Adverse Reactions: Allergies Allergy/AdvReac Type Severity Reaction Status Date / Time iodine Allergy Verified 12/01/17 11:54 Home Medications: Ambulatory Orders Albuterol Sulfate Inhaler - [Ventolin HFA Inhaler -] 2 puff IH Q6H PRN 30 Days # 1 inhaler MDD 4 times 08/19/17 Isosorbide Mononitrate [Imdur -] 60 mg PO DAILY tab.sr.24h 08/19/17 Melatonin 5 mg PO HS PRN tab 08/19/17 Ranitidine [Zantac -] 150 mg PO DAILY #30 tablet 08/19/17 Aspirin Coated [Ecotrin -] 81 mg PO DAILY tablet.ec 08/24/17 Clopidogrel Bisulfate [Plavix -] 75 mg PO DAILY tablet 08/24/17 Gabapentin [Neurontin -] 400 mg PO TID capsule 08/24/17 Insulin (Levemir) [Levemir Vial] 34 units SQ HS ml 08/24/17 Insulin Sliding Scale [Novolog Vial Sliding Scale -] 1 vial SQ ACHS units 08/24 Losartan Potassium [Cozaar -] 50 mg PO DAILY tablet 08/24/17 Salmeterol/Fluticasone [Advair 100Mcg/50Mcg -] 1 puff IH BID inhaler 08/24/17 Atorvastatin Ca [Lipitor] 10 mg PO HS tablet 09/19/17 Furosemide [Lasix -] 20 mg PO DAILY 10/10/17 Carvedilol [Coreg -] 12.5 mg PO BID #14 tablet 10/18/17 Ranolazine [Ranexa -] 500 mg PO BID #60 tab 10/18/17 Anemia: Yes Cardiac Disorders: Yes (MV replacement) COPD: Yes Diabetes: Yes HTN: Yes Hypercholesterolemia: Yes - Surgical History Cardiac Surgery: Yes (MITRAL VALVE REPLACEMET W/ STENT) - Immunization History Immunization Up to Date: Yes - Suicide/Smoking/Psychosocial Hx Smoking History: Former smoker Have you smoked in the past 12 months: No Number of Cigarettes Smoked Daily: 5 If you are a former smoker, when did you quit?: 10/2017 Information on smoking cessation initiated: Yes 'Breaking Loose' booklet given: 12/01/17 Hx Alcohol Use: No Drug/Substance Use Hx: No Substance Use Type: None Hx Substance Use Treatment: No Review of Systems - Review of Systems Constitutional: No: Chills, Fever Respiratory: Yes: Shortness of Breath. No: Cough Cardiac (ROS): No: Chest Pain ABD/GI: No: Diarrhea, Nausea, Vomiting, Abdominal cramping *Physical Exam - Vital Signs Last Vital Signs Temp Pulse Resp BP Pulse Ox 98.6 F 73 22 129/64 100 12/01/17 11:50 12/01/17 11:50 12/01/17 11:50 12/01/17 11:50 12/01/17 11:50 - Physical Exam General Appearance: Yes: Appropriately Dressed. No: Apparent Distress HEENT: positive: Normal Voice Neck: positive: Supple Respiratory/Chest: positive: Lungs Clear, Normal Breath Sounds. negative: Respiratory Distress Cardiovascular: positive: Regular Rate, S1, S2 Gastrointestinal/Abdominal: positive: Soft. negative: Tender Extremity: negative: Pedal Edema Integumentary: positive: Dry, Warm Neurologic: positive: Fully Oriented, Alert, Normal Mood/Affect ED Treatment Course - LABORATORY CBC & Chemistry Diagram: 12/01/17 12:59 12/01/17 12:59 - RADIOLOGY Radiology Studies Ordered: Category Date Time Status CHEST X-RAY PORTABLE* [RAD] Stat Radiology 12/01/17 12:31 Ordered Medical Decision Making - Medical Decision Making 12/01/17 12:38 62-year-old female smoker, COPD, not oxygen dependent, HTN, DM, CKD, CAD, s/p PCI/stenting, anemia, s/p multiple transfusions, on iron pill, s/p EGD and colonoscopy ~1 yr ago in [place] leading to removal of colonic polyp, sent in by Dr. Elena for Hgb of 5 on labs yesterday,(baseline ~8-10). Patient does report generalized weakness and shortness of breath x several days. No chest pain, syncope, abdominal pain, nausea, vomiting, change in bowel movements, melena, bright red blood per rectum, fever or chills see exam Symptomatic anemia S/p transfusions in past On iron Not on blood thinners S/p colonic polyp > 1 yr ago No current GIB Stable and in NAD -labs -transfuse -admit 12/01/17 13:[address] Elena and patient admitted. Meryl, requesting I place consult for hematology 12/01/17 14:27 H/H 5/17. 2 units PRBCs ordered. Pt admitted 12/01/17 14:28 *DC/Admit/Observation/Transfer Diagnosis at time of Disposition: SOB (shortness of breath), Weak Anemia Qualifiers: Anemia type: unspecified type Qualified Code(s): D64.9 - Anemia, unspecified - Discharge Dispostion Condition at time of disposition: Fair Decision to Admit order: Yes - Referrals - Patient Instructions - Post Discharge Activity
[2017-12-01 13:11] LABS: BASO % 0.9 % (0-2.0); EOS % 2.9 % (0-4.5); LYMPH % 16.4 % (8-40); MCH 24.6 pg (25.7-33.7); MCHC 31.2 g/dl (32.0-36.0); MEAN PLT VOLUME 8.1 fl (7.5-11.1); MONO % 8.9 % (3.8-10.2); NEUT % 70.9 % (42.8-82.8); PLATELET COUNT 224 K/MM3 (134-434); RBC 2.15 M/mm3 (3.60-5.2); RDW 16.1 % (11.6-15.6)
[2017-12-01 13:25] LABS: HEMOGLOBIN 5.3 GM/dL (10.7-15.3)
[2017-12-01 13:51] LABS: ANION GAP 10 (8-16); BILIRUBIN,TOTAL 0.3 mg/dL (0.2-1.0); BLOOD UREA NITROGEN 43 mg/dL (7-18); CALCIUM 8.2 mg/dL (8.5-10.1); CHLORIDE 106 mmol/L (98-107); CO2 19 mmol/L (21-32); CREATININE 2.6 mg/dL (0.55-1.02); SGPT/ALT 19 U/L (12-78); SODIUM 135 mmol/L (136-145)
[2017-12-01 13:54] LABS: INR 1.17 (0.83-1.09); PROTHROMBIN TIME (PATIENT) 13.2 SEC (9.7-13.0)
[2017-12-01 13:54] LABS: ALK PHOS 390 U/L (45-117); TOT PROT 7.2 g/dl (6.4-8.2)
[2017-12-01 13:59] LABS: POTASSIUM 4.9 mmol/L (3.5-5.1); SGOT/AST 31 U/L (15-37)
[2017-12-01 14:02] LABS: GLUCOSE,RANDOM 408 mg/dL (74-106)
[2017-12-01] MEDS ORDERED: INSULIN REGULAR HUMAN 100 UNITS/ML *VIAL IVPUSH ONE (16:29)
[2017-12-01] MEDS ORDERED: INSULIN REGULAR HUMAN 100 UNITS/ML *VIAL ONE (16:33)
[2017-12-01 16:35] LABS: URINE APPEARANCE SLCLOUDY; URINE BILIRUBIN NEGATIVE (<2.0 mg/dL); URINE COLOR STRAW; URINE GLUCOSE (UA) 3+ (NEGATIVE); URINE KETONE NEGATIVE (NEGATIVE); URINE NITRITE NEGATIVE (NEGATIVE); URINE UROBILINOGEN NEGATIVE mg/dL (0.2-1.0)
[2017-12-01 16:36] LABS: URINE LEUK ESTERASE 1+ (NEGATIVE); URINE PROTEIN 1+ (NEGATIVE)
[2017-12-01 16:38] LABS: EPI CELLS FEW /HPF (FEW); URINE BACTERIA RARE /hpf (NONE SEEN)
[2017-12-01] MEDS ORDERED: ALBUTEROL SO4 8 GM HFA INHALER IH PRN (18:04)
[2017-12-01] MEDS ORDERED: MELATONIN 5 MG TABLETS PO PRN (18:15)
[2017-12-01] MEDS ORDERED: PT OWN MED DRAWER 7, Y5N ONE (21:17)
[2017-12-01] MEDS: INSULIN SLIDING SCALE (NOVOLOG) 1 VIAL SQ SCH (21:39)
[2017-12-01] MEDS: ATORVASTATIN CA 10 MG TABLET (FP) PO SCH (21:40)
[2017-12-01] MEDS: INSULIN (LEVEMIR) 100 UNITS/ML UNITS SQ SCH (21:40)
[2017-12-01] MEDS: FLUTICASONE/SALMETEROL 100 MCG/50 MCG DISKUS IH SCH (21:40)
[2017-12-01] MEDS: RANOLAZINE E.R. 500 MG TABLET (FP) PO SCH (21:41)
[2017-12-01] MEDS: RANITIDINE HCL 150 MG TABLET (FP) PO SCH (21:41)
[2017-12-01] MEDS: CARVEDILOL 12.5 MG TABLET (FP) PO SCH (21:41)
[2017-12-01] MEDS: GABAPENTIN 400 MG CAPSULE (FP) PO SCH (21:41)
[2017-12-02] MEDS: GABAPENTIN 400 MG CAPSULE (FP) PO SCH ×3 (06:24→21:19)
[2017-12-02] MEDS: INSULIN SLIDING SCALE (NOVOLOG) 1 VIAL SQ SCH ×4 (06:27→21:20)
[2017-12-02 07:29] LABS: HEMATOCRIT 23.6 % (32.4-45.2); HEMOGLOBIN 7.9 GM/dL (10.7-15.3); MCHC 33.6 g/dl (32.0-36.0); MEAN CELL VOLUME 80.3 fl (80-96); MEAN PLT VOLUME 7.4 fl (7.5-11.1); PLATELET COUNT 220 K/MM3 (134-434); RBC 2.94 M/mm3 (3.60-5.2); RDW 15.6 % (11.6-15.6); WHITE BLOOD COUNT 9.1 K/mm3 (4.0-10.0)
[2017-12-02 07:53] LABS: ALBUMIN 3.2 g/dl (3.4-5.0); ANION GAP 10 (8-16); BLOOD UREA NITROGEN 38 mg/dL (7-18); CALCIUM 8.9 mg/dL (8.5-10.1); CHLORIDE 114 mmol/L (98-107); CO2 20 mmol/L (21-32); CREATININE 2.1 mg/dL (0.55-1.02); GLUCOSE,RANDOM 67 mg/dL (74-106); POTASSIUM 4.4 mmol/L (3.5-5.1); SGOT/AST 10 U/L (15-37); SGPT/ALT 15 U/L (12-78); SODIUM 144 mmol/L (136-145)
[2017-12-02 07:55] LABS: ALK PHOS 365 U/L (45-117); BILIRUBIN,TOTAL 0.7 mg/dL (0.2-1.0); TOT PROT 7.2 g/dl (6.4-8.2)
--- NOTE | 2017-12-02 08:56 | HP ---
DATE OF ADMISSION: 12/01/2017 This is a 62-year-old female known to have atherosclerotic heart disease, diabetes, chronic kidney disease, status post stent, who was complaining of chest pain and short of breath 2 days ago. I gave her Lasix p.o. and asked her to come to the office the day before yesterday. So, blood work done that day showed hemoglobin of 5.3. So, she came to the emergency room yesterday for admission. She got 2 units of blood yesterday. Today, she feels good. She had similar complaints in the past. She is on multiple medications for her heart and also on iron pills. No obvious rectal bleeding noted. PHYSICAL EXAMINATION: Vital Signs: Today, her blood pressure is 170/90, pulse 66, respirations 20, temperature 97.7. HEENT: Unremarkable. Neck: Supple. No JVD. Lungs: Clear. Heart: S1, S2 normal. No S3, S4. Abdomen: Soft. Legs: No edema. Neurological: Negative. LABORATORY REPORTS: After the blood transfusion, her WBC 9.1, hemoglobin 7.9, hematocrit 23, platelets 220. Chemistry this morning: Sodium 144, potassium 4.4, chloride 114, BUN 20, creatinine 2.1. Her B peptide yesterday was 6265. IMPRESSION: 1. Anemia, etiology not clear. 2. Atherosclerotic heart disease. 3. Congestive heart failure. PLAN: We will transfuse 2 more units today, consult Dr. Powers for anemia workup. Meryl [id number]
[2017-12-02] MEDS ORDERED: PT OWN MED DRAWER 7, Y5N ONE ×2 (09:06→21:11)
[2017-12-02] MEDS: LOSARTAN POTASSIUM 50 MG TABLET (FP) PO SCH (09:15)
[2017-12-02] MEDS: FUROSEMIDE 40 MG TABLET (FP) PO SCH (09:16)
[2017-12-02] MEDS: RANOLAZINE E.R. 500 MG TABLET (FP) PO SCH ×2 (09:16→21:18)
[2017-12-02] MEDS: RANITIDINE HCL 150 MG TABLET (FP) PO SCH (09:16)
[2017-12-02] MEDS: CARVEDILOL 12.5 MG TABLET (FP) PO SCH ×2 (09:16→21:18)
[2017-12-02] MEDS: FLUTICASONE/SALMETEROL 100 MCG/50 MCG DISKUS IH SCH ×2 (09:16→21:19)
[2017-12-02] MEDS: ISOSORBIDE MONONITRATE 60 MG TAB.SR.24H (FP) PO SCH (09:16)
[2017-12-02] MEDS: ASPIRIN COATED 81 MG TABLET.EC PO SCH (09:16)
[2017-12-02] MEDS: CLOPIDOGREL BISULFATE 75 MG TABLET (FP) PO SCH (09:16)
--- NOTE | 2017-12-02 09:55 | CONSULT ---
Consultation: REQUESTING PROVIDER: CONSULT REQUEST: We have been asked to medically evaluate this patient for Dr. Elena HISTORY OF PRESENT ILLNESS:62 y/o F with PMH CKD, COPD, CAD, GERD, CHF, Anemia was sent in by her primary care doctor because of fall in her hemoglobin. Patient states that on Wednesday she started to had difficulty in breathing with generalized weakness and lightheadedness . Difficulty in breathing was progressing, she was getting short of breath while walking from living room to bathroom, she was unable to lie straight on bed. She also noticed swelling in her legs. On 11/30/17 she went to her PCP and her lasix was increased and blood work was done. Patient breathing didn't improve after getting Lasix. In blood work patient found to have fall in Hemoglobin ( Hb 5.3) and was sent to hospital. Patient states that she has constipation and has hard stool. She also reports that she had seen red color blood in her stool. Also reports pain during defication and blood is present around the stool. Patient also reports that some time she had seen dark color stool but she is on iron pills. Patient denies use of Advil, Naproxen, Motrin, Ibuprofen but takes aspirin. Patient denies change in weight and appetite. Patient also states that in this year this is the 4th time she is getting blood transfusion. She also states that last year for anemia she underwent Colonoscopy in [place] details not available. PMH; HTN, COPD, DM, CKD, SKIP BEAT, CAD, GERD, CHF, ANEMIA transfusion dependent. REVIEW OF SYSTEMS: CONSTITUTIONAL: Absent: fever, chills, diaphoresis, generalized weakness, malaise, loss of appetite, weight change HEENT: Absent: rhinorrhea, nasal congestion, throat pain, throat swelling, difficulty swallowing, mouth swelling, ear pain, eye pain, visual changes CARDIOVASCULAR: Absent: chest pain, syncope, palpitations, irregular heart rate, lightheadedness , peripheral edema RESPIRATORY: Absent: cough, shortness of breath, dyspnea with exertion, orthopnea, wheezing, stridor, hemoptysis GASTROINTESTINAL: Absent: abdominal pain, abdominal distension, nausea, vomiting, diarrhea, constipation, melena, hematochezia GENITOURINARY: Absent: dysuria, frequency, urgency, hesitancy, hematuria, flank pain, genital pain MUSCULOSKELETAL: Absent: myalgia, arthralgia, joint swelling, back pain, neck pain SKIN: Absent: rash, itching, pallor HEMATOLOGIC/IMMUNOLOGIC: Absent: easy bleeding, easy bruising, lymphadenopathy, frequent infections ENDOCRINE: Absent: unexplained weight gain, unexplained weight loss, heat intolerance, cold intolerance NEUROLOGIC: Absent: headache, focal weakness or paresthesias, dizziness, unsteady gait, seizure, mental status changes, bladder or bowel incontinence PSYCHIATRIC: Absent: anxiety, depression, suicidal or homicidal ideation, hallucinations. PHYSICAL EXAMINATION Vital Signs - 24 hr 12/02/17 12/02/17 12/02/17 09:00 14:00 18:31 Temperature 98.4 F 98.6 F 98.0 F Pulse Rate 70 77 71 Respiratory 18 18 18 Rate Blood Pressure 163/74 144/80 159/81 O2 Sat by Pulse 96 Oximetry (%) 12/02/17 12/02/17 12/03/17 21:00 22:00 06:00 Temperature 98.4 F 98 F Pulse Rate 76 65 Respiratory 18 18 20 Rate Blood Pressure 192/88 138/74 O2 Sat by Pulse 96 Oximetry (%) GENERAL: Awake, alert, and fully oriented, in no acute distress. HEAD: Normal with no signs of trauma. EYES: Pupils equal, round and reactive to light, extraocular movements intact, sclera anicteric, conjunctiva clear. No lid lag. EARS, NOSE, THROAT: Ears normal, nares patent, oropharynx clear without exudates. Moist mucous membranes. NECK: Normal range of motion, supple without lymphadenopathy, JVD, or masses. LUNGS: Breath sounds equal, clear to auscultation bilaterally. No wheezes, and no crackles. No accessory muscle use. HEART: Regular rate and rhythm, normal S1 and S2 without murmur, rub or gallop. ABDOMEN: Soft, nontender, not distended, normoactive bowel sounds, no guarding, no rebound, no masses. No hepatomegaly or splenomegaly. MUSCULOSKELETAL: Normal range of motion at all joints. No bony deformities or tenderness. No CVA tenderness. UPPER EXTREMITIES: 2+ pulses, warm, well-perfused. No cyanosis. No clubbing. Cap refill <2 seconds. No peripheral edema. LOWER EXTREMITIES: 2+ pulses, warm, well-perfused. No calf tenderness. No peripheral edema. NEUROLOGICAL: Cranial nerves II-XII intact. Normal speech. Normal gait. PSYCHIATRIC: Cooperative. Good eye contact. Appropriate mood and affect. SKIN: Warm, dry, normal turgor, no rashes or lesions noted. Laboratory Results - last 24 hr 12/01/17 12/02/17 12/02/17 12:52 07:00 07:00 WBC 9.1 RBC 2.94 L Hgb 7.9 L Hct 23.6 L D MCV 80.3 MCH 27.0 MCHC 33.6 RDW 15.6 Plt Count 220 MPV 7.4 L Sodium 144 Potassium 4.4 Chloride 114 H Carbon Dioxide 20 L Anion Gap 10 BUN 38 H Creatinine 2.1 H Creat Clearance w eGFR 24.02 POC Glucometer Random Glucose 67 L Calcium 8.9 Total Bilirubin 0.7 AST 10 L ALT 15 Alkaline Phosphatase 365 H D Total Protein 7.2 Albumin 3.2 L Vitamin B12 414 Serum Folate 11 Blood Type B POSITIVE Antibody Screen Negative Crossmatch See Detail 12/02/17 12/02/17 12/02/17 07:00 11:55 21:00 WBC RBC Hgb Hct MCV MCH MCHC RDW Plt Count MPV Sodium Potassium Chloride Carbon Dioxide Anion Gap BUN Creatinine Creat Clearance w eGFR POC Glucometer 181 336 Random Glucose Calcium Total Bilirubin AST ALT Alkaline Phosphatase Total Protein Albumin Vitamin B12 Cancelled Serum Folate Cancelled Blood Type Antibody Screen Crossmatch 12/03/17 05:40 WBC RBC Hgb Hct MCV MCH MCHC RDW Plt Count MPV Sodium Potassium Chloride Carbon Dioxide Anion Gap BUN Creatinine Creat Clearance w eGFR POC Glucometer 85 Random Glucose Calcium Total Bilirubin AST ALT Alkaline Phosphatase Total Protein Albumin Vitamin B12 Serum Folate Blood Type Antibody Screen Crossmatch Active Medications Generic Name Dose Route Start Last Admin Trade Name Piotrq PRN Reason Stop Dose Admin Albuterol Sulfate 2 puff 12/01/17 18:04 Ventolin Hfa Inhaler - IH Q6H PRN SHORTNESS OF BREATH Aspirin 81 mg 12/02/17 10:00 12/02/17 09:16 Ecotrin - PO 81 mg DAILY ANNE MARIE Administration Atorvastatin Calcium 10 mg 12/01/17 22:00 12/02/17 21:18 Lipitor - PO 10 mg HS ANNE MARIE Administration Carvedilol 12.5 mg 12/01/17 22:00 12/02/17 21:18 Coreg - PO 12.5 mg BID ANNE MARIE Administration Clopidogrel Bisulfate 75 mg 12/02/17 10:00 12/02/17 09:16 Plavix - PO 75 mg DAILY ANNE MARIE Administration Furosemide 40 mg 12/02/17 10:00 12/02/17 09:16 Lasix - PO 40 mg DAILY ANNE MARIE Administration Gabapentin 400 mg 12/01/17 22:00 12/03/17 05:45 Neurontin - PO Not Given TID ANNE MARIE Dextrose 1,000 mls @ 42 mls/hr 12/03/17 07:00 12/03/17 06:51 D5w - IV 42 mls/hr .[id number] ANNE MARIE Administration Insulin Aspart 1 vial 12/01/17 22:00 12/03/17 06:50 Novolog Vial Sliding Scale - SQ Not Given ACHS ANNE MARIE Protocol Insulin Detemir 34 units 12/01/17 22:00 12/02/17 21:21 Levemir Vial SQ Not Given HS ANNE MARIE Isosorbide Mononitrate 60 mg 12/02/17 10:00 12/02/17 09:16 Imdur - PO 60 mg DAILY ANNE MARIE Administration Losartan Potassium 50 mg 12/02/17 10:00 12/02/17 09:15 Cozaar - PO 50 mg DAILY ANNE MARIE Administration Melatonin 5 mg 12/01/17 18:15 12/01/17 21:40 Melatonin PO 5 mg HS PRN Administration INSOMNIA Pantoprazole Sodium 40 mg 12/02/17 22:00 12/02/17 21:18 Protonix - PO 40 mg BID ANNE MARIE Administration Ranolazine 500 mg 12/01/17 22:00 12/02/17 21:18 Ranexa - PO 500 mg BID ANNE MARIE Administration Fluticasone/Salmeterol 1 puff 12/01/17 22:00 12/02/17 21:19 Advair 100mcg/50mcg - IH 1 puff BID ANNE MARIE Administration Teaching attending note patient seen and examined with resident 62 y/o with h/o obesity, DM, hyperlipidemia, CAD, CKD, COPD,s/p CABG, ? valvuloplasty, karen for symptomatic anemia Microcytic anema -- recent colonoscopy/E[facility] at [facility] is unrevealing per patient. s/p 3 units PRBC check iron studies B12/folate/TSH normal For enteroscopy per GI team On aspirin/plavix On ferrous sulfate with inadequate response. will dose IV iron after checking iron saturation outpatient follow up with genetics counsellor given h/o uterine cancer in her mother at a very young age <Verna Chavez - Last Filed: 12/03/17 08:20> Consultation: REQUESTING PROVIDER: CONSULT REQUEST: We have been asked to medically evaluate this patient for ( Hematology-oncology). HISTORY OF PRESENT ILLNESS: 62 y/o F with PMH CKD, COPD, CAD, GERD, CHF, Anemia was sent in by her primary care doctor because of fall in her hemoglobin. Patient states that on Wednesday she started to had difficulty in breathing with generalized weakness and lightheadedness . Difficulty in breathing was progressing, she was getting short of breath while walking from living room to bathroom, she was unable to lie straight on bed. She also noticed swelling in her legs. On 11/30/17 she went to her PCP and her lasix was increased and blood work was done. Patient breathing didn't improve after getting Lasix. In blood work patient found to have fall in Hemoglobin ( Hb 5.3) and was sent to hospital. Patient states that she has constipation and has hard stool. She also reports that she had seen red color blood in her stool. Also reports pain during defication and blood is present around the stool. Patient also reports that some time she had seen dark color stool but she is on iron pills. Patient denies use of Advil, Naproxen, Motrin, Ibuprofen but takes aspirin. Patient denies change in weight and appetite. Patient also states that in this year this is the 4th time she is getting blood transfusion. She also states that last year for anemia she underwent Colonoscopy in [place] details not available. PMH; HTN, COPD, DM, CKD, SKIP BEAT, CAD, GERD, CHF, ANEMIA transfusion dependent. PSH : cholecystectomy, permanent pacemaker, angioplasty R leg, cardiac bypass 2014, peripheral neuropathy, ? Valvuloplasty. colonoscopy last year in [facility]. Family History: Mother at age of 28 from ? ovarian/uterus cancer Father at age of 57 from stroke Sister at age of 52 from [place] Brother at age of 50 from [place] Social history: Lives in [facility], but currently living with her daughter in [place]. 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 Stopped few weeks ago. use to smoke 1/2 pack a day. No alcohol use. Allergies Allergy/AdvReac Type Severity Reaction Status Date / Time iodine Allergy Verified 12/01/17 11:54 Home Medications Medication Instructions Recorded Albuterol Sulfate Inhaler - 2 puff IH Q6H PRN 30 Days #1 08/19/17 [Ventolin HFA Inhaler -] inhaler MDD 4 times Isosorbide Mononitrate [Imdur -] 60 mg PO DAILY tab.sr.24h 08/19/17 Melatonin 5 mg PO HS PRN tab 08/19/17 Ranitidine [Zantac -] 150 mg PO DAILY #30 tablet 08/19/17 Aspirin Coated [Ecotrin -] 81 mg PO DAILY tablet.ec 08/24/17 Clopidogrel Bisulfate [Plavix -] 75 mg PO DAILY tablet 08/24/17 Gabapentin [Neurontin -] 400 mg PO TID capsule 08/24/17 Insulin (Levemir) [Levemir Vial] 34 units SQ HS ml 08/24/17 Insulin Sliding Scale [Novolog 1 vial SQ ACHS units 08/24/17 Vial Sliding Scale -] Losartan Potassium [Cozaar -] 50 mg PO DAILY tablet 08/24/17 Salmeterol/Fluticasone [Advair 1 puff IH BID inhaler 08/24/17 100Mcg/50Mcg -] Atorvastatin Ca [Lipitor] 10 mg PO HS tablet 09/19/17 Furosemide [Lasix -] 20 mg PO DAILY 10/10/17 Carvedilol [Coreg -] 12.5 mg PO BID #14 tablet 10/18/17 Ranolazine [Ranexa -] 500 mg PO BID #60 tab 10/18/17 REVIEW OF SYSTEMS: CONSTITUTIONAL: present generalized weakness Absent: fever, chills, diaphoresis, malaise, loss of appetite, weight change HEENT: Absent: rhinorrhea, nasal congestion, throat pain, throat swelling, difficulty swallowing, mouth swelling, ear pain, eye pain, visual changes CARDIOVASCULAR: Present lightheadedness Absent: chest pain, syncope, palpitations, irregular heart rate, RESPIRATORY: Absent:,, stridor, hemoptysis GASTROINTESTINAL: as above GENITOURINARY: Absent: dysuria, frequency, urgency, hesitancy, hematuria, flank pain, genital pain SKIN: Absent: rash, itching, HEMATOLOGIC/IMMUNOLOGIC: Absent: easy bleeding, easy bruising, lymphadenopathy, ENDOCRINE: Absent: unexplained weight gain, unexplained weight loss, PSYCHIATRIC: Absent: anxiety, depression, PHYSICAL EXAMINATION 12/01/17 12/01/17 12/02/17 17:02 21:00 06:00 Temperature 97.8 F 97.7 F Pulse Rate 68 66 Pulse Rate [ Radial] Respiratory 20 18 20 Rate Blood Pressure 126/52 174/87 Blood Pressure [Right Arm] O2 Sat by Pulse 96 96 Oximetry (%) GENERAL: Awake, alert, and fully oriented, in no acute distress. HEAD: Normal with no signs of trauma. EYES: conjunctiva pallor EARS, NOSE, THROAT: oropharynx clear without exudates. Moist mucous membranes. NECK: Normal range of motion, supple without lymphadenopathy, JVD, or masses. LUNGS: Breath sounds equal, clear to auscultation bilaterally. No wheezes, and no crackles. No accessory muscle use. mid line scar present on chest. Breast: no lump palpable. Axilla : No lymphnodes HEART: s1s2 normal ABDOMEN: Soft, nontender, not distended, normoactive bowel sounds, no guarding, no rebound, no masses. right sub coastal scar present, MUSCULOSKELETAL: Normal range of motion at all joints. No bony deformities or tenderness. No CVA tenderness. UPPER EXTREMITIES: 2+ pulses, warm, well-perfused. No cyanosis. No peripheral edema. LOWER EXTREMITIES: warm, well-perfused. No calf tenderness. No peripheral edema. PSYCHIATRIC: Cooperative. Good eye contact. SKIN: Warm, dry, 12/01/17 12/01/17 12/01/17 12:59 12:59 12:59 WBC 8.0 RBC 2.15 L Hgb 5.3 L* Hct 17.0 L D MCV 79.0 L MCH 24.6 L D MCHC 31.2 L RDW 16.1 H Plt Count 224 MPV 8.1 D Absolute Neuts (auto) 5.7 Neutrophils % 70.9 D Lymphocytes % 16.4 D Monocytes % 8.9 Eosinophils % 2.9 Basophils % 0.9 Nucleated RBC % 1 H PT with INR INR Sodium 135 L Potassium 4.9 Chloride 106 Carbon Dioxide 19 L Anion Gap 10 BUN 43 H Creatinine 2.6 H Creat Clearance w eGFR 18.78 POC Glucometer Random Glucose 408 H* Calcium 8.2 L Total Bilirubin 0.3 AST 31 ALT 19 Alkaline Phosphatase 390 H Creatine Kinase 226 H Creatine Kinase Index 2.2 CK-MB (CK-2) 5.18 H Troponin I < 0.02 B-Natriuretic Peptide 6265.64 H Total Protein 7.2 Albumin 3.0 L Urine Color Urine Appearance Urine pH Ur Specific [place] Urine Protein Urine Glucose (UA) Urine Ketones Urine Blood Urine Nitrite Urine Bilirubin Urine Urobilinogen Ur Leukocyte Esterase Urine WBC (Auto) Urine RBC (Auto) Ur Epithelial Cells Urine Bacteria Acetone, Qual Blood Type Antibody Screen Crossmatch Active Medications Generic Name Dose Route Start Last Admin Trade Name Freq PRN Reason Stop Dose Admin Albuterol Sulfate 2 puff 12/01/17 18:04 Ventolin Hfa Inhaler - IH Q6H PRN SHORTNESS OF BREATH Aspirin 81 mg 12/02/17 10:00 12/02/17 09:16 Ecotrin - PO 81 mg DAILY ANNE MARIE Administration Atorvastatin Calcium 10 mg 12/01/17 22:00 12/01/17 21:40 Lipitor - PO 10 mg HS ANNE MARIE Administration Carvedilol 12.5 mg 12/01/17 22:00 12/02/17 09:16 Coreg - PO 12.5 mg BID ANNE MARIE Administration Clopidogrel Bisulfate 75 mg 12/02/17 10:00 12/02/17 09:16 Plavix - PO 75 mg DAILY ANNE MARIE Administration Furosemide 40 mg 12/02/17 10:00 12/02/17 09:16 Lasix - PO 40 mg DAILY ANNE MARIE Administration Gabapentin 400 mg 12/01/17 22:00 12/02/17 06:24 Neurontin - PO 400 mg TID ANNE MARIE Administration Insulin Aspart 1 vial 12/01/17 22:00 12/02/17 06:27 Novolog Vial Sliding Scale - SQ Not Given ACHS [facility] Protocol Insulin Detemir 34 units 12/01/17 22:00 12/01/17 21:40 Levemir Vial SQ 34 units HS ANNE MARIE Administration Isosorbide Mononitrate 60 mg 12/02/17 10:00 12/02/17 09:16 Imdur - PO 60 mg DAILY ANNE MARIE Administration Losartan Potassium 50 mg 12/02/17 10:00 12/02/17 09:15 Cozaar - PO 50 mg DAILY ANNE MARIE Administration Melatonin 5 mg 12/01/17 18:15 12/01/17 21:40 Melatonin PO 5 mg HS PRN Administration INSOMNIA Ranitidine HCl 150 mg 12/01/17 22:00 12/02/17 09:16 Zantac - PO 150 mg BID ANNE MARIE Administration Ranolazine 500 mg 12/01/17 22:00 12/02/17 09:16 Ranexa - PO 500 mg BID ANNE MARIE Administration Fluticasone/Salmeterol 1 puff 12/01/17 22:00 12/02/17 09:16 Advair 100mcg/50mcg - IH 1 puff BID ANNE MARIE Administration ASSESSMENT/PLAN: Normocytic anemia ckd CAD CHF COPD -Normocytic anemia can be because of anemia of chronic disease from ckd or from blood loss from GI tract. Details of previous colonoscopy is not available. -Patient got two units of blood yesterday and her Hb increased from 5.3 to 7.9 and patient feels better after transfusion. -Continue with iron supplement -PT/ INR normal. Will order ptt, vitamin b12, folic acid and tsh. - Consider GI consult if their is a need to re-scope her. Dispo: We will continue to follow the patient. Thank you for this consultative opportunity. <Dusty Rodriguez - Last Filed: 12/03/17 08:54> Visit type - Emergency Visit Emergency Visit: Yes ED Registration Date: 12/01/17 Care time: The patient presented to the Emergency Department on the above date and was hospitalized for further evaluation of their emergent condition. - New Patient This patient is new to me today: Yes Date on this admission: 12/03/17 - Critical Care Critical Care patient: No <Dusty Rodriguez - Last Filed: 12/03/17 08:54>
[2017-12-02] MEDS ORDERED: diphenhydrAMINE HCL 25 MG CAPSULE (FP) PO ONE (11:00)
[2017-12-02 15:56] VITALS: BMI 36.0
--- NOTE | 2017-12-02 20:11 | CON.GI ---
Consult Consult Specialty:: Gastroenterology Referred by:: Dr Elena Reason for Consultation:: Hb 5 - History of Present Illness Chief Complaint: Worsening exercise tolerance and progressive weakness History of Present Illness: 62F on Plavix presented to Dr Elena for SOB, weakness and worsening exercise tolerance. He discovered a Hb of 5. She had to be transfused twice earlier within this year. She denies voluminous brisk rectal bleeding but did have slight hematochezia after passing a hard stool recently. he stools are dark colored and firm but she is taking iron. No tarry stools or hematemesis. She had a colonoscopy in 08/17 at [facility] in [place] for workup of her anemia and tells me that study was normal. She had a previous colonoscopy at age 52 which yielded a polyp. Although she has had one she cannot recall when she last had an EGD but she does recall that it failed to reveal any source for her anemia. She cannot recall ever having had a capsule endoscopy. She denies any FH of GI malignancy but her mother age 28 of ovarian cancer. She had a porcine AVR at [facility] in 2014 and although they harvested leg veins , she never had a CABG. She did have 4 coronary stents placed in 2016. - History Source History Provided By: Patient Limitations to Obtaining History: No Limitations - Past Medical History REIN[employer]CING STE[employer]: Yes: TIA Cardio/Vascular: Yes: Aortic Insufficiency (s/p porcine AVR 2014 [facility]), CAD, CHF, HTN, Hyperlipdemia, [place] (leading to 2015 AVR), Pulmonary Hypertension, Other (PPM, peripheral vascular disease s/p RLE angioplasty) Pulmonary: Yes: COPD Gastrointestinal: Yes: Constipation, GERD, Other (colon polyp age 52) Hepatobiliary: Yes: Cholelithiasis (s/p cholecystectomy), Other (fatty liver) Renal/: Yes: Renal Failure (stage III- worsened after dye used for 2016 stenting) ...: No Musculoskeletal: Yes: Chronic low back pain Endocrine: Yes: Diabetes Mellitus (with neuropathy) - Past Surgical History Past Surgical History: Yes: Cholecystectomy (open), Colonoscopy, Permanent Pacemaker (secondary to syncopal episodes), Upper Endoscopy Additional Surgical History: Porcine AVR for aortic regurgitation 2014 - Alcohol/Substance Use Hx Alcohol Use: No History of Substance Use: reports: None - Smoking History Smoking history: Former smoker Have you smoked in the past 12 months: No Aproximately how many cigarettes per day: 5 If you are a former smoker, when did you quit?: 10/2017 - Social History Usual Living Arrangement: Alone ADL: Family Assistance 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 [employer] Place of : [facility] History of Recent Travel: No Home Medications - Allergies Allergies/Adverse Reactions: Allergies Allergy/AdvReac Type Severity Reaction Status Date / Time iodine Allergy Verified 12/01/17 11:54 - Home Medications Home Medications: Ambulatory Orders Albuterol Sulfate Inhaler - [Ventolin HFA Inhaler -] 2 puff IH Q6H PRN 30 Days # 1 inhaler MDD 4 times 08/19/17 Isosorbide Mononitrate [Imdur -] 60 mg PO DAILY tab.sr.24h 08/19/17 Melatonin 5 mg PO HS PRN tab 08/19/17 Ranitidine [Zantac -] 150 mg PO DAILY #30 tablet 08/19/17 Aspirin Coated [Ecotrin -] 81 mg PO DAILY tablet.ec 08/24/17 Clopidogrel Bisulfate [Plavix -] 75 mg PO DAILY tablet 08/24/17 Gabapentin [Neurontin -] 400 mg PO TID capsule 08/24/17 Insulin (Levemir) [Levemir Vial] 34 units SQ HS ml 08/24/17 Insulin Sliding Scale [Novolog Vial Sliding Scale -] 1 vial SQ ACHS units 08/24 Losartan Potassium [Cozaar -] 50 mg PO DAILY tablet 08/24/17 Salmeterol/Fluticasone [Advair 100Mcg/50Mcg -] 1 puff IH BID inhaler 08/24/17 Atorvastatin Ca [Lipitor] 10 mg PO HS tablet 09/19/17 Furosemide [Lasix -] 20 mg PO DAILY 10/10/17 Carvedilol [Coreg -] 12.5 mg PO BID #14 tablet 10/18/17 Ranolazine [Ranexa -] 500 mg PO BID #60 tab 10/18/17 Family Disease History - Family Disease History Family Disease History: Other: Father ( 57: CVA), Mother ( 28: Ovarian Ca), Brother (1, [place] 50's), Sister (2, 1 [place], 50's), Son (1, healthy), Daughter (1, healthy) Review of Systems - Review of Systems Constitutional: reports: Lethargy, Malaise, Weakness Eyes: reports: No Symptoms HENT: reports: No Symptoms Neck: reports: No Symptoms Cardiovascular: reports: Shortness of Breath Respiratory: reports: Exercise Intolerance, SOB, SOB on Exertion Gastrointestinal: reports: Constipation, Rectal Bleeding Genitourinary: reports: No Symptoms Breasts: reports: No Symptoms Reported Neurological: reports: Numbness, Parasthesia Physical Exam-GI Vital Signs: Vital Signs Temperature 98.0 F 12/02/17 18:31 Pulse Rate 71 12/02/17 18:31 Respiratory Rate 18 12/02/17 18:31 Blood Pressure 159/81 12/02/17 18:31 O2 Sat by Pulse Oximetry (%) 96 12/02/17 09:00 CBC,CMP WBC 9.1 K/mm3 (4.0-10.0) 12/02/17 07:00 RBC 2.94 M/mm3 (3.60-5.2) L 12/02/17 07:00 Hgb 7.9 GM/dL (10.7-15.3) L 12/02/17 07:00 Hct 23.6 % (32.4-45.2) L D 12/02/17 07:00 MCV 80.3 fl (80-96) 12/02/17 07:00 MCH 27.0 pg (25.7-33.7) 12/02/17 07:00 MCHC 33.6 g/dl (32.0-36.0) 12/02/17 07:00 RDW 15.6 % (11.6-15.6) 12/02/17 07:00 Plt Count 220 K/MM3 (134-434) 12/02/17 07:00 MPV 7.4 fl (7.5-11.1) L 12/02/17 07:00 Absolute Neuts (auto) 5.7 # 12/01/17 12:59 Neutrophils % 70.9 % (42.8-82.8) D 12/01/17 12:59 Lymphocytes % 16.4 % (8-40) D 12/01/17 12:59 Monocytes % 8.9 % (3.8-10.2) 12/01/17 12:59 Eosinophils % 2.9 % (0-4.5) 12/01/17 12:59 Basophils % 0.9 % (0-2.0) 12/01/17 12:59 Nucleated RBC % 1 % (0-0) H 12/01/17 12:59 Sodium 144 mmol/L (136-145) 12/02/17 07:00 Potassium 4.4 mmol/L (3.5-5.1) 12/02/17 07:00 Chloride 114 mmol/L (98-107) H 12/02/17 07:00 Carbon Dioxide 20 mmol/L (21-32) L 12/02/17 07:00 Anion Gap 10 (8-16) 12/02/17 07:00 BUN 38 mg/dL (7-18) H 12/02/17 07:00 Creatinine 2.1 mg/dL (0.55-1.02) H 12/02/17 07:00 Creat Clearance w eGFR 24.02 (>60) 12/02/17 07:00 POC Glucometer 181 UNITS (80-120) 12/02/17 11:55 Random Glucose 67 mg/dL (74-106) L 12/02/17 07:00 Calcium 8.9 mg/dL (8.5-10.1) 12/02/17 07:00 Total Bilirubin 0.7 mg/dL (0.2-1.0) 12/02/17 07:00 AST 10 U/L (15-37) L 12/02/17 07:00 ALT 15 U/L (12-78) 12/02/17 07:00 Alkaline Phosphatase 365 U/L (45-117) H D 12/02/17 07:00 Creatine Kinase 226 IU/L (26-192) H 12/01/17 12:59 Creatine Kinase Index 2.2 % (0.0-5.0) 12/01/17 12:59 CK-MB (CK-2) 5.18 ng/mL (0.5-3.6) H 12/01/17 12:59 Troponin I < 0.02 ng/ml (0.00-0.05) 12/01/17 12:59 B-Natriuretic Peptide 6265.64 pg/ml (5-125) H 12/01/17 12:59 Total Protein 7.2 g/dl (6.4-8.2) 12/02/17 07:00 Albumin 3.2 g/dl (3.4-5.0) L 12/02/17 07:00 Vitamin B12 414 pg/ml (180-914) 12/02/17 07:00 Serum Folate 11 ng/ml (3.1-17.5) 12/02/17 07:00 Current Medications Generic Name Dose Route Start Last Admin Trade Name Freq PRN Reason Stop Dose Admin Albuterol Sulfate 2 puff 12/01/17 18:04 Ventolin Hfa Inhaler - IH Q6H PRN SHORTNESS OF BREATH Aspirin 81 mg 12/02/17 10:00 12/02/17 09:16 Ecotrin - PO 81 mg DAILY ANNE MARIE Administration Atorvastatin Calcium 10 mg 12/01/17 22:00 12/01/17 21:40 Lipitor - PO 10 mg HS ANNE MARIE Administration Carvedilol 12.5 mg 12/01/17 22:00 12/02/17 09:16 Coreg - PO 12.5 mg BID ANNE MARIE Administration Clopidogrel Bisulfate 75 mg 12/02/17 10:00 12/02/17 09:16 Plavix - PO 75 mg DAILY ANNE MARIE Administration Furosemide 40 mg 12/02/17 10:00 12/02/17 09:16 Lasix - PO 40 mg DAILY ANNE MARIE Administration Gabapentin 400 mg 12/01/17 22:00 12/02/17 13:08 Neurontin - PO 400 mg TID ANNE MARIE Administration Insulin Aspart 1 vial 12/01/17 22:00 12/02/17 17:57 Novolog Vial Sliding Scale - SQ 1 vial ACHS ANNE MARIE Administration Protocol Insulin Detemir 34 units 12/01/17 22:00 12/01/17 21:40 Levemir Vial SQ 34 units HS ANNE MARIE Administration Isosorbide Mononitrate 60 mg 12/02/17 10:00 12/02/17 09:16 Imdur - PO 60 mg DAILY ANNE MARIE Administration Losartan Potassium 50 mg 12/02/17 10:00 12/02/17 09:15 Cozaar - PO 50 mg DAILY ANNE MARIE Administration Melatonin 5 mg 12/01/17 18:15 12/01/17 21:40 Melatonin PO 5 mg HS PRN Administration INSOMNIA Ranitidine HCl 150 mg 12/01/17 22:00 12/02/17 09:16 Zantac - PO 150 mg BID ANNE MARIE Administration Ranolazine 500 mg 12/01/17 22:00 12/02/17 09:16 Ranexa - PO 500 mg BID ANNE MARIE Administration Fluticasone/Salmeterol 1 puff 12/01/17 22:00 12/02/17 09:16 Advair 100mcg/50mcg - IH 1 puff BID ANNE MARIE Administration Constitutional: Yes: No Distress Eyes: Yes: Conjunctiva Clear HENT: Yes: Normocephalic Neck: Yes: Supple Cardiovascular: Yes: Regular Rate and Rhythm (left PPM), Other (healed median sternotomy incision) Respiratory: Yes: CTA Bilaterally Gastrointestinal Inspection: Yes: Scars (oblique RUQ) ...Auscultate: Yes: Normoactive Bowel Sounds ...Palpate: Yes: Soft, Other (nontender) ...Percussion: Yes: Tympanitic ...Rectal Exam: Yes: Guaiac Positive (black hard strongly guaiac positive stool) Edema: LLE: 1+, RLE: 1+ Neurological: Yes: Alert, Oriented Labs: CBC, BMP 12/02/17 07:00 12/02/17 07:00 INR, PTT INR 1.17 (0.83-1.09) 12/01/17 12:52 Laboratory Tests 12/01/17 12/02/17 12:59 07:00 Hgb 5.3 L* MCV 79.0 L BUN 38 H Creatinine 2.1 H Total Bilirubin 0.7 AST 10 L ALT 15 Alkaline Phosphatase 365 H D Problem List - Problems (1) GIB (gastrointestinal bleeding) Assessment/Plan: Given her relatively recent colonoscopy and failure to find anemia on previous EGD and colonoscopy, her CKD, her positive occult blood in stool and given her transfusion requirements I suspect that [place] anemia reflects indolent GI bleeding from vascular ectasias of the small bowel. I have therefore advised EGD and enteroscopy to look for these. I suspect that she chivo ultimately need a capsule endoscopy but she can get this done when she returns home to [place]. I have informed her of the potential risks of perforation and hemorrhage after which she has signed a informed consent for the enteroscopy which I chivo try to schedule fro tomorrow. Given that she is on Plavix and the fact that she had a relatively recent colonoscopy this will not be repeated unless signs of lower GI bleeding arise. Code(s): K92.2 - GASTROINTESTINAL HEMORRHAGE, UNSPECIFIED (2) History of colon polyps Assessment/Plan: advised to followup with her GI in [place] Code(s): Z86.010 - PERSONAL HISTORY OF COLONIC POLYPS (3) Hematochezia Assessment/Plan: Given her description of the bleeding associated with passage of a hard stool I suspect a hemorrhoidal origin. Miralax will be prescribed to prevent such recurrences. Code(s): K92.1 - MELENA (4) Fatty (change of) liver, not elsewhere classified Code(s): K76.0 - FATTY (CHANGE OF) LIVER, NOT ELSEWHERE CLASSIFIED (5) H/O aortic valve replacement with porcine valve Assessment/Plan: for aortic insufficiency Code(s): Z95.3 - PRESENCE OF XENOGENIC HEART VALVE (6) Anemia Code(s): D64.9 - ANEMIA, UNSPECIFIED Qualifiers: Anemia type: iron deficiency Iron deficiency anemia type: chronic blood loss Qualified Code(s): D50.0 - Iron deficiency anemia secondary to blood loss (chronic) Assessment/Plan For enteroscopy tomorrow
[2017-12-02] MEDS: PANTOPRAZOLE 40 MG TABLET (FP) PO SCH (21:18)
[2017-12-02] MEDS: ATORVASTATIN CA 10 MG TABLET (FP) PO SCH (21:18)
[2017-12-02] MEDS: INSULIN (LEVEMIR) 100 UNITS/ML UNITS SQ SCH (21:21)
[2017-12-03] MEDS: GABAPENTIN 400 MG CAPSULE (FP) PO SCH ×2 (05:45→14:48)
[2017-12-03] MEDS: INSULIN SLIDING SCALE (NOVOLOG) 1 VIAL SQ SCH ×3 (06:50→18:15)
[2017-12-03] MEDS ORDERED: DEXTROSE 5%-WATER - 1,000 ML IV SCH (07:00)
[2017-12-03 08:27] LABS: BASO % 0.6 % (0-2.0); EOS % 4.6 % (0-4.5); HEMATOCRIT 26.9 % (32.4-45.2); HEMOGLOBIN 9.1 GM/dL (10.7-15.3); LYMPH % 15.8 % (8-40); MCH 26.9 pg (25.7-33.7); MCHC 33.7 g/dl (32.0-36.0); MEAN CELL VOLUME 79.8 fl (80-96); MEAN PLT VOLUME 7.3 fl (7.5-11.1); PLATELET COUNT 229 K/MM3 (134-434); RBC 3.38 M/mm3 (3.60-5.2); RDW 15.6 % (11.6-15.6); RETICULOCYTES 3.18 % (0.5-1.5); WHITE BLOOD COUNT 10.2 K/mm3 (4.0-10.0)
[2017-12-03 08:53] LABS: ALBUMIN 3.1 g/dl (3.4-5.0); BILIRUBIN,DIRECT 0.3 mg/dL (0.0-0.2); BILIRUBIN,TOTAL 0.9 mg/dL (0.2-1.0); TOT PROT 7.1 g/dl (6.4-8.2)
[2017-12-03 08:56] LABS: CALCIUM 8.9 mg/dL (8.5-10.1); CHLORIDE 113 mmol/L (98-107); POTASSIUM 4.6 mmol/L (3.5-5.1); SODIUM 144 mmol/L (136-145)
[2017-12-03 09:02] LABS: ALBUMIN 3.2 g/dl (3.4-5.0); ALK PHOS 341 U/L (45-117); ANION GAP 8 (8-16); BILIRUBIN,TOTAL 0.9 mg/dL (0.2-1.0); BLOOD UREA NITROGEN 39 mg/dL (7-18); CO2 23 mmol/L (21-32); CREATININE 1.9 mg/dL (0.55-1.02); GAMMA GLUTAMYL TRANSPEPTIDASE 55 U/L (5-85); GLUCOSE,RANDOM 89 mg/dL (74-106); PHOSPHOROUS 4.3 mg/dL (2.5-4.9); SGOT/AST 13 U/L (15-37); SGPT/ALT 17 U/L (12-78); TOT PROT 7.1 g/dl (6.4-8.2)
--- NOTE | 2017-12-03 09:18 | PN ---
Progress Note, Physician Chief Complaint: Feels better History of Present Illness: Dr Buckley hematology consult and Dr Avendano GI consult appreciated Scheduled for EGD today - Current Medication List Current Medications: Active Medications Albuterol Sulfate (Ventolin Hfa Inhaler -) 2 puff IH Q6H PRN PRN Reason: SHORTNESS OF BREATH Aspirin (Ecotrin -) 81 mg PO DAILY [facility] Last Admin: 12/02/17 09:16 Dose: 81 mg Atorvastatin Calcium (Lipitor -) 10 mg PO HS [facility] Last Admin: 12/02/17 21:18 Dose: 10 mg Carvedilol (Coreg -) 12.5 mg PO BID [facility] Last Admin: 12/02/17 21:18 Dose: 12.5 mg Clopidogrel Bisulfate (Plavix -) 75 mg PO DAILY [facility] Last Admin: 12/02/17 09:16 Dose: 75 mg Furosemide (Lasix -) 40 mg PO DAILY [facility] Last Admin: 12/02/17 09:16 Dose: 40 mg Gabapentin (Neurontin -) 400 mg PO TID [facility] Last Admin: 12/03/17 05:45 Dose: Not Given Dextrose (D5w -) 1,000 mls @ 42 mls/hr IV .[id number] [facility] Last Admin: 12/03/17 06:51 Dose: 42 mls/hr Insulin Aspart (Novolog Vial Sliding Scale -) 1 vial SQ [facility]; Protocol Last Admin: 12/03/17 06:50 Dose: Not Given Insulin Detemir (Levemir Vial) 34 units SQ [facility] Last Admin: 12/02/17 21:21 Dose: Not Given Isosorbide Mononitrate (Imdur -) 60 mg PO DAILY [facility] Last Admin: 12/02/17 09:16 Dose: 60 mg Losartan Potassium (Cozaar -) 50 mg PO DAILY [facility] Last Admin: 12/02/17 09:15 Dose: 50 mg Melatonin (Melatonin) 5 mg PO HS PRN PRN Reason: INSOMNIA Last Admin: 12/01/17 21:40 Dose: 5 mg Pantoprazole Sodium (Protonix -) 40 mg PO BID [facility] Last Admin: 12/02/17 21:18 Dose: 40 mg Ranolazine (Ranexa -) 500 mg PO BID [facility] Last Admin: 12/02/17 21:18 Dose: 500 mg Fluticasone/Salmeterol (Advair 100mcg/50mcg -) 1 puff IH BID ANNE MARIE Last Admin: 12/02/17 21:19 Dose: 1 puff - Objective Vital Signs: Vital Signs Temperature 98 F 12/03/17 06:00 Pulse Rate 65 12/03/17 06:00 Respiratory Rate 20 12/03/17 06:00 Blood Pressure 138/74 12/03/17 06:00 O2 Sat by Pulse Oximetry (%) 96 12/02/17 21:00 Constitutional: Yes: No Distress Eyes: Yes: WNL HENT: Yes: WNL Neck: Yes: WNL Cardiovascular: Yes: WNL Respiratory: Yes: WNL Gastrointestinal: Yes: Normal Bowel Sounds ...Rectal Exam: Yes: Deferred Genitourinary: Yes: WNL Musculoskeletal: Yes: WNL Edema: No Peripheral Pulses WNL: Yes Neurological: Yes: Alert Labs: CBC, BMP 12/03/17 07:30 12/03/17 07:30 INR, PTT INR 1.17 (0.83-1.09) 12/01/17 12:52 Assessment/Plan EGD today
[2017-12-03] MEDS ORDERED: IRON SUCROSE INJECTION 300 MG in SODIUM CHLORIDE 250 ML IVPB ONE (12:47)
[2017-12-03] MEDS: CARVEDILOL 12.5 MG TABLET (FP) PO SCH (14:07)
[2017-12-03] MEDS: ASPIRIN COATED 81 MG TABLET.EC PO SCH (14:07)
[2017-12-03] MEDS: RANOLAZINE E.R. 500 MG TABLET (FP) PO SCH (14:07)
[2017-12-03] MEDS: CLOPIDOGREL BISULFATE 75 MG TABLET (FP) PO SCH (14:07)
[2017-12-03] MEDS: PANTOPRAZOLE 40 MG TABLET (FP) PO SCH (14:08)
[2017-12-03] MEDS: LOSARTAN POTASSIUM 50 MG TABLET (FP) PO SCH (14:08)
[2017-12-03] MEDS: ISOSORBIDE MONONITRATE 60 MG TAB.SR.24H (FP) PO SCH (14:08)
[2017-12-03] MEDS: FUROSEMIDE 40 MG TABLET (FP) PO SCH (14:08)
[2017-12-03] MEDS: FLUTICASONE/SALMETEROL 100 MCG/50 MCG DISKUS IH SCH (14:09)
--- NOTE | 2017-12-03 14:09 | PN ---
Progress Note (short form) - Note Progress Note: GI Procedure Note: Please see EGD and Enteroscopy report.Duodenal bulb vascular ectasias were found. They were not bleeding but support my belief that small bowel ectasias are indolently bleeding and causing her anemia. I advised capsule endoscopy when she returns to [place]. No GI objections to discharge. The case was discussed with Dr Elena. Problem List - Problems (1) GIB (gastrointestinal bleeding) Code(s): K92.2 - GASTROINTESTINAL HEMORRHAGE, UNSPECIFIED (2) History of colon polyps Code(s): Z86.010 - PERSONAL HISTORY OF COLONIC POLYPS (3) Hematochezia Code(s): K92.1 - MELENA (4) Fatty (change of) liver, not elsewhere classified Code(s): K76.0 - FATTY (CHANGE OF) LIVER, NOT ELSEWHERE CLASSIFIED (5) H/O aortic valve replacement with porcine valve Code(s): Z95.3 - PRESENCE OF XENOGENIC HEART VALVE (6) Anemia Code(s): D64.9 - ANEMIA, UNSPECIFIED Qualifiers: Anemia type: iron deficiency Iron deficiency anemia type: chronic blood loss Qualified Code(s): D50.0 - Iron deficiency anemia secondary to blood loss (chronic)
--- NOTE | 2017-12-03 14:47 | PN ---
Progress Note (short form) - Note Progress Note: Patient seen and examined S/P enteroscopy. Found to have vascular ectasia in the small bowel. Will need further investigation of small bowel with capsule endoscopy tihe the future. In interim iron infusion ordered by Dr. Silver. Last Vital Signs Temp Pulse Resp BP Pulse Ox 98.2 F 70 20 107/63 100 12/03/17 13:05 12/03/17 13:05 12/03/17 13:05 12/03/17 13:05 12/03/17 13:05 HEENT: SUZETTE, EOM Intact Oropharynx: Poor dentition Cor: RSR, systolic murmurs, No gallops Lungs: Clear to P&A Abd: Soft, Normal bowel sounds, No organomegaly Ext:No significant edema Skin: No rashes, Integument intact CBC, BMP 12/03/17 07:30 12/03/17 07:30 Impression: GI bleeding secondary to vascular ectasia IV Venofer therapy. Work- up as out patient. Discussed with Dr. Adrianne Sue.
[2017-12-03 17:38] VITALS: PULSE 108; TEMP 98.6
[2017-12-03 17:41] VITALS: BP 140/84
[2017-12-03] MEDS ORDERED: INSULIN (NOVOLOG) ASPART 100 UNITS/ML 10ML VIAL ONE ×2 (18:11→19:15)
[2017-12-04 08:06] LABS: SERUM IRON SATURATION 12 % (15-55); TOTAL IRON BINDING CAPACITY 354 ug/dL (250-450); UIBC 311 ug/dL (131-425)
--- NOTE | 2017-12-04 09:14 | EKG ---
Test Reason : Blood Pressure : / mmHG Vent. Rate : 073 BPM Atrial Rate : 073 BPM P-R Int : 158 ms QRS Dur : 106 ms QT Int : 468 ms P-R-T Axes : 062 020 147 degrees QTc Int : 515 ms NORMAL SINUS RHYTHM PROLONGED QT ABNORMAL ECG WHEN COMPARED WITH ECG OF 10-OCT-2017 09:58, T WAVE INVERSION NOW EVIDENT IN LATERAL LEADS Confirmed by ALEJANDRA CALVO, ROBERTH ([id number]) on 12/04/2017 9:14:06 AM Referred By: Confirmed By:ROBERTH ROBERTS MD
[2017-12-04 14:12] LABS: TRANSGLUTAMINASE IGA 4 U/mL (0-3); TRANSGLUTAMINASE IGG 2 U/mL (0-5)
== END 2017-12-03 19:56 | disposition home or self-care (01) | DRG 378 ==
LOC: JER 11:42 → JERBED 13:05 → J8W 17:30
PROVIDERS: ADMIT Internal Medicine; ATTEND Internal Medicine
PROC: 0DJ08ZZ Inspection of Upper Intestinal Tract, Via Natural or Artificial Opening Endoscopic (ICD-10-PCS; principal; 2017-12-03 12:15)
DX: K31.811 Angiodysplasia of stomach and duodenum with bleeding (principal); I13.0 Hypertensive heart and chronic kidney disease with heart failure and stage 1 through stage 4 chronic kidney disease, or unspecified chronic kidney disease; N25.81 Secondary hyperparathyroidism of renal origin; K31.89 Other diseases of stomach and duodenum; K76.0 Fatty (change of) liver, not elsewhere classified; D50.0 Iron deficiency anemia secondary to blood loss (chronic); E21.3 Hyperparathyroidism, unspecified; Z79.4 Long term (current) use of insulin; J44.9 Chronic obstructive pulmonary disease, unspecified; E78.5 Hyperlipidemia, unspecified; Z95.5 Presence of coronary angioplasty implant and graft; Z87.891 Personal history of nicotine dependence; E11.22 Type 2 diabetes mellitus with diabetic chronic kidney disease; I25.10 Atherosclerotic heart disease of native coronary artery without angina pectoris; Z95.1 Presence of aortocoronary bypass graft; E11.42 Type 2 diabetes mellitus with diabetic polyneuropathy; D63.8 Anemia in other chronic diseases classified elsewhere; I25.2 Old myocardial infarction; Z95.3 Presence of xenogenic heart valve; N18.3 Chronic kidney disease, stage 3 (moderate); K59.00 Constipation, unspecified; Z80.41 Family history of malignant neoplasm of ovary; M81.0 Age-related osteoporosis without current pathological fracture
CPT/HCPCS: 36415; 36430; 71045-TC-FY; 80053; 80076; 81003; 81015; 82009; 82550; 82553; 82607; 82728; 82746; 82962; 82977; 83516; 83540; 83550; 83880; 83970; 84100; 84443; 84484; 85025; 85027; 85044; 85610; 85730; 86850; 86900; 86901; 86922; 93005; 93010; 99285-25; J1756; P9038; P9058